=== PATIENT | female | born 1960 | race Caucasian/White ===

== ENCOUNTER 2018-10-18 10:41 | Outpatient (CLI) | payer BC, SELFPAY ==
[2018-10-18 11:20] LABS: Abs Immature Grans 0.01 k/cumm (0.0-0.09); Absolute Basophil Count 0.02 k/cumm (0.0-0.2); Absolute Eosinophil Count 0.14 k/cumm (0.0-0.7); Absolute Lymphocyte Count 2.31 k/cumm (1.2-3.4); Absolute Monocyte Count 0.37 k/cumm (0.11-0.7); Absolute Neutrophil Count 2.85 k/cumm (1.2-6.7); Basophils % 0.4; Eosinophils % 2.5; HCT 38.9 % (36.0-46.0); HGB 12.8 g/dL (12.0-15.5); Immature Grans % 0.2; Lymphocytes % 40.5; Mean Corp. HGB Concentration 32.9 g/dL (32.0-36.0); Mean Corpuscular Hemoglobin 27.9 pg (27.0-33.0); Mean Corpuscular Volume 84.7 fL (80-95); Mean Platelet Volume 8.9 fL (8.0-11.0); Monocytes % 6.5; Neutrophils % 49.9; Platelet Count 251 x1000/uL (130-400); RBC 4.59 m/cumm (4.00-5.20); RBC Distribution Width 13.6 % (11.7-14.6)
[2018-10-18 11:31] LABS: ALT 46 U/L (12-78); AST 27 U/L (15-37); Albumin 3.2 g/dL (3.4-5.0); Alkaline Phosphatase 114 U/L (46-116); Anion Gap 9.4 mmol/L (3-11); BUN 11 mg/dL (7-18); Bilirubin, Total 0.3 mg/dL (0.2-1.0); CO2 24.6 mmol/L (21.0-32.0); CREATININE 0.94 mg/dL (0.55-1.02); Calcium 8.9 mg/dL (8.5-10.1); Chloride 105 mmol/L (98-107); Glucose 221 mg/dL (70-100); Potassium 4.1 mmol/L (3.5-5.1); Sodium 139 mmol/L (136-145); Total Protein 6.7 g/dL (6.4-8.2)
[2018-10-18 11:35] LABS: Hemoglobin A1C 7.7 % (4.5-6.2)
== END 2018-10-18 11:01 ==
PROVIDERS: PCP Family Medicine; Visit Provider Internal Medicine Medical Oncology
DX: R63.5 Abnormal weight gain (principal); C50.412 Malignant neoplasm of upper-outer quadrant of left female breast; Z17.0 Estrogen receptor positive status [ER+]
CPT/HCPCS: 36415; 80053; 83036; 85025

== ENCOUNTER 2018-11-15 00:58 | Outpatient (CLI) | payer BC, SELFPAY ==
--- NOTE | 2018-11-15 13:50 | DI.MAMMO_ITS ---
SYMPTOM/DIAGNOSIS: LT BREAST CA STAGE II, H/O BREAST CA S/P SURGERY, RADIATION ? STATUS MAMMOGRAM: Mammograms were interpreted according to the usual protocol including computer analysis with CAD system, tomosynthesis and C view imaging. Comparison with prior examinations. Breast density B. No suspicious masses or microcalcifications are seen. The patient is status post left lumpectomy. IMPRESSION: No evidence for malignancy. Yearly mammography is recommended. Category 2-B. MQSA ASSESSMENT OF FINDINGS: Negative with benign findings. Category 2. Patient will receive a letter notifying them of these results. BI-RADS category B. There are scattered areas of fibroglandular density.
== END 2018-11-15 01:18 ==
PROVIDERS: PCP Family Medicine; Visit Provider Nurse Practitioner Family
DX: Z12.31 Encounter for screening mammogram for malignant neoplasm of breast (principal); Z85.3 Personal history of malignant neoplasm of breast; Z92.3 Personal history of irradiation
CPT/HCPCS: 77062; 77066; G0279

== ENCOUNTER 2018-12-21 11:46 | Outpatient (REF) | payer BC, SELFPAY ==
[2018-12-21 18:56] LABS: Abs Immature Grans 0.01 k/cumm (0.0-0.09); Absolute Basophil Count 0.01 k/cumm (0.0-0.2); Absolute Eosinophil Count 0.13 k/cumm (0.0-0.7); Absolute Lymphocyte Count 1.94 k/cumm (1.2-3.4); Absolute Monocyte Count 0.43 k/cumm (0.11-0.7); Absolute Neutrophil Count 3.61 k/cumm (1.2-6.7); Basophils % 0.2; Eosinophils % 2.1; HCT 39.2 % (36.0-46.0); HGB 13.1 g/dL (12.0-15.5); Immature Grans % 0.2; Lymphocytes % 31.6; Mean Corp. HGB Concentration 33.4 g/dL (32.0-36.0); Mean Corpuscular Hemoglobin 28.3 pg (27.0-33.0); Mean Corpuscular Volume 84.7 fL (80-95); Mean Platelet Volume 9.9 fL (8.0-11.0); Neutrophils % 58.9; Platelet Count 254 x1000/uL (130-400); RBC 4.63 m/cumm (4.00-5.20); RBC Distribution Width 13.9 % (11.7-14.6); White Blood Cell Count 6.13 k/cumm (4.4-10.8)
[2018-12-21 19:12] LABS: TSH (W/Ref FT4) 1.98 uIU/mL (0.358-3.74)
== END 2018-12-21 12:06 ==
LOC: LBN 11:46
PROVIDERS: PCP Family Medicine; Visit Provider Family Medicine
DX: R53.83 Other fatigue (principal); R63.5 Abnormal weight gain
CPT/HCPCS: 84443; 85025

== ENCOUNTER 2019-05-14 00:34 | Outpatient (CLI) | payer BC, SELFPAY ==
[2019-05-14 11:57] LABS: Calculated LDL 73 mg/dL; Cholesterol 144 mg/dL (50-200); HDL Cholesterol 55 mg/dL (40-60); Triglyceride 82 mg/dL (30-150)
== END 2019-05-14 00:54 ==
PROVIDERS: PCP Family Medicine; Visit Provider Family Medicine
DX: E78.5 Hyperlipidemia, unspecified (principal)
CPT/HCPCS: 36415; 80061; 83721

== ENCOUNTER 2019-05-16 01:36 | Outpatient (CLI) | payer BC, SELFPAY ==
[2019-05-16] MEDS: Inhaler, Assist Device 1 EACH MC (15:13)
[2019-05-16] MEDS: Albuterol HFA 18 GM 200 PUFF INH IH (15:14)
--- NOTE | 2019-05-18 11:40 | PFT_ITS ---
Date: May 16, 2019 Requesting Provider: Dr. Andrea Cho Spirometry: No evidence of obstructive airways disease. No bronchodilator response. Lung Volume: No evidence of restriction. Diffusion capacity: Borderline mildly reduced, which is normal when corrected to alveolar volume. Airways resistance: Normal. IMPRESSION: Overall normal pulmonary function study. Clinical correlation recommended.
== END 2019-05-16 01:56 ==
PROVIDERS: PCP Family Medicine; Visit Provider Family Medicine
DX: R06.09 Other forms of dyspnea (principal); Z87.891 Personal history of nicotine dependence
CPT/HCPCS: 94060; 94150; 94726; 94729

== ENCOUNTER 2019-08-11 07:02 | Outpatient (CLI) | payer BC, SELFPAY ==
--- NOTE | 2019-08-11 08:15 | DI.RAD_ITS ---
EXAM: XR TIB/FIB LT CLINICAL HISTORY: Evaluate for stress fracture, lower tibia, leg pain, M79.606 TECHNIQUE: COMPARISON: No exams were available for comparison FINDINGS: Three views were obtained. No bony abnormality seen. If there is a high clinical suspicion of a str ess fracture or other bony pathology, additional evaluation with bone scan or MRI may be considered. IMPRESSION:
[2019-08-11 09:45] LABS: Iron 47 ug/dL (50-175); Total Iron Binding Capacity 381 ug/dL (250-450); Transferrin Sat 12 % (15-50)
[2019-08-11 09:46] LABS: ALT 39 U/L (14-59); AST 17 U/L (15-37); Albumin 3.7 g/dL (3.4-5.0); Alkaline Phosphatase 151 U/L (46-116); BUN 16 mg/dL (7-18); Bilirubin, Total 0.3 mg/dL (0.2-1.0); CREATININE 0.76 mg/dL (0.55-1.02); Chloride 106 mmol/L (98-107); Glucose 118 mg/dL (70-100); Potassium 3.9 mmol/L (3.5-5.1); Sodium 144 mmol/L (136-145)
== END 2019-08-11 07:22 ==
PROVIDERS: PCP Family Medicine; Visit Provider Family Medicine
DX: M79.662 Pain in left lower leg (principal)
CPT/HCPCS: 36415; 80053; 73590; 83540; 83550

== ENCOUNTER 2019-08-24 00:38 | Outpatient (CLI) | payer BC, SELFPAY ==
--- NOTE | 2019-08-24 09:48 | DI.NM_ITS ---
EXAM: NM BONE SCAN 3 PHASE CLINICAL HISTORY: L tibial pain x 3 months suggestive of stress fracture M79.669, bilateral hip pain . COMPARISON: LEFT TIB/FIB from 03/16/2018 XR TIB/FIB LT from 08/11/2019 EXAMINATION: 24.0 millicuries of technetium 99m MDP were administered IV. FINDINGS: Delayed images show no increased activity in the tibia or fibula. Increased activity is seen in the tarsal regions bilaterally. There is a small focus of increased activity in the left greater trochan ter, which could be secondary to trochanteric bursitis. The remainder of the skeletal labeling is un remarkable. IMPRESSION: No abnormal activity in the left tibia. Small focus of increased activity in the left greater trocha nter could be secondary to trochanteric bursitis. There are no plain films available for comparison. Increased activity in both feet could be secondary to degenerative or posttraumatic changes.
== END 2019-08-24 00:58 ==
PROVIDERS: PCP Family Medicine; Visit Provider Family Medicine
DX: M79.662 Pain in left lower leg (principal); M25.551 Pain in right hip; M25.552 Pain in left hip
CPT/HCPCS: 78315

== ENCOUNTER 2019-10-31 08:58 | Outpatient (REF) | payer BC, SELFPAY ==
--- NOTE | 2019-10-31 08:45 | PAPFT_PTH ---
PATIENT: Stefany Edward LOC: [facility] U#:[id number] AGE/SX: 59/F ROOM: RE10/31/[address]: Doreen De La Vega NP : 1960 BED: DIS: 10/31/2019 SPEC #: [id number] RECD: 10/31/19 12:48 STATUS: FARHANA DUMONT #: [id number] DUDLEY: 10/31/19 08:[address]: Doreen De La Vega NP DEPT: [facility] Cytology RECD BY: Mickie Murray ENTERED: 10/31/19 12:48 SP TYPE: PAPFT OTHR DR: Andrea Cho, DO Tissues: 1 - CX/ENDOCX FOR PAP SMEARS Procedures: PAP THIN PREP/UVM Screening HPV DNA PROBE Comments: [id number]
== END 2019-10-31 09:18 ==
LOC: LBN 08:58
PROVIDERS: PCP Family Medicine; Visit Provider Nurse Practitioner Women's Health
DX: Z12.4 Encounter for screening for malignant neoplasm of cervix (principal); Z11.51 Encounter for screening for human papillomavirus (HPV)
CPT/HCPCS: 88142; 87624

== ENCOUNTER 2019-11-14 01:23 | Outpatient (CLI) | payer BC, SELFPAY ==
--- NOTE | 2019-11-14 13:14 | DI.US_ITS ---
EXAM: US PELVIS TRANSVAGINAL CLINICAL HISTORY: HX BREAST CA, R SIDED PELVIC PAIN, R10.2, Z85.3 TECHNIQUE: Ultrasound performed using standard protocol. Transabdominal and transvaginal exams wer e performed. COMPARISON: No exams were available for comparison FINDINGS: The uterus measures 6.0 x 3.7 x 4.6 cm. There are multiple small fibroids. The myometrium overall i s heterogeneous. Uterus is retroverted. The endometrial stripe measures 3 millimeters in thickness. Ovaries are normal in size and appearance. No cyst or mass is seen. There is no free fluid or hyd ronephrosis. The bladder is unremarkable. IMPRESSION: Multiple small uterine fibroids.
== END 2019-11-14 01:43 ==
PROVIDERS: PCP Family Medicine; Visit Provider Nurse Practitioner Women's Health
DX: R10.2 Pelvic and perineal pain (principal); D25.9 Leiomyoma of uterus, unspecified; Z85.3 Personal history of malignant neoplasm of breast; N85.4 Malposition of uterus
CPT/HCPCS: 76830; 76856

== ENCOUNTER 2019-12-05 01:38 | Outpatient (CLI) | payer BC, SELFPAY ==
--- NOTE | 2019-12-05 13:30 | DI.MAMMO_ITS ---
EXAM: MG MAMMO SCREENING 60 MIN DUR CLINICAL HISTORY: Personal h/o breast adenocarcinoma, Z85.3, breast cancer screening TECHNIQUE: Mammograms were interpreted according to the usual protocol including computer analysis w [employer] CAD system, tomosynthesis and C-view imaging. COMPARISON: 2009 through 2018 FINDINGS: The breasts are composed of heterogeneously dense fibroglandular densities, Breast Density category C . Scarring is again noted in the superior left breast. Surgical clips are also seen. No suspicious masses or suspicious microcalcifications are seen. No skin thickening or abnormal axillary lymph nodes are seen. There has been no significant change from prior exams. IMPRESSION: BIRADS Category 2, negative mammogram with benign findings. Yearly screening mammography is recommen ded. BREAST DENSITY: The mammogram demonstrates the patient's breast tissue is dense. Dense breast tissue is very common and is not abnormal but dense breast tissue can make it harder to find cancer on a ma mmogram. Also, dense breast tissue may increase breast cancer risk. This information about the result of the mammogram report was provided to the patient to raise their awareness. Use this report when y ou speak with the patient about their risks for breast cancer, which includes their family history. A t that time, you may recommend additional screening tests (Ultrasound or MRI) as they might be useful based on their risk. A negative radiographic report should not delay biopsy if a dominant or clinically suspicious mass is present. Up to ten percent of cancers are not identified on mammography. A negative report may reinforce clinical impression. Adenosis and dense breasts may obscure an underlying neoplasm. False positive reports average 6 to 10%.
== END 2019-12-05 01:58 ==
PROVIDERS: PCP Family Medicine; Visit Provider Nurse Practitioner Women's Health
DX: Z12.31 Encounter for screening mammogram for malignant neoplasm of breast (principal); Z85.3 Personal history of malignant neoplasm of breast; Z98.890 Other specified postprocedural states
CPT/HCPCS: 77063; 77067

== ENCOUNTER 2020-05-01 02:13 | Outpatient (CLI) | payer BC, SELFPAY ==
[2020-05-01 09:55] LABS: Abs Immature Grans 0.01 k/cumm (0.0-0.09); Absolute Basophil Count 0.01 k/cumm (0.0-0.2); Absolute Eosinophil Count 0.09 k/cumm (0.0-0.7); Absolute Lymphocyte Count 2.43 k/cumm (1.2-3.4); Absolute Monocyte Count 0.37 k/cumm (0.11-0.7); Absolute Neutrophil Count 4.26 k/cumm (1.2-6.7); Basophils % 0.1; Eosinophils % 1.3; HCT 39.7 % (36.0-46.0); HGB 13.1 g/dL (12.0-15.5); Immature Grans % 0.1 %; Lymphocytes % 33.9; Mean Corpuscular Hemoglobin 28.1 pg (27.0-33.0); Mean Corpuscular Volume 85.2 fL (80-95); Monocytes % 5.2; Neutrophils % 59.4; Platelet Count 303 x1000/uL (130-400); RBC 4.66 m/cumm (4.00-5.20); RBC Distribution Width 13.5 % (11.7-14.6); White Blood Cell Count 7.17 k/cumm (4.4-10.8)
[2020-05-01 10:54] LABS: ALT 34 U/L (14-59); AST 20 U/L (15-37); Albumin 3.6 g/dL (3.4-5.0); Alkaline Phosphatase 93 U/L (46-116); Anion Gap 10.7 mmol/L (3-11); BUN 12 mg/dL (7-18); Bilirubin, Total 0.3 mg/dL (0.2-1.0); CO2 26.3 mmol/L (21.0-32.0); CREATININE 0.87 mg/dL (0.55-1.02); Calcium 8.8 mg/dL (8.5-10.1); Chloride 103 mmol/L (98-107); Glucose 172 mg/dL (74-106); Potassium 3.9 mmol/L (3.5-5.1); Sodium 140 mmol/L (136-145); TSH (W/Ref FT4) 1.36 uIU/mL (0.36-3.74); Total Protein 6.9 g/dL (6.4-8.2)
== END 2020-05-01 02:33 ==
PROVIDERS: PCP Family Medicine; Visit Provider Family Medicine
DX: R63.5 Abnormal weight gain (principal)
CPT/HCPCS: 36415; 80053; 84443; 85025

== ENCOUNTER 2021-01-25 03:49 | Outpatient (CLI) | payer BC, SELFPAY ==
--- NOTE | 2021-01-25 13:35 | DI.MAMMO_ITS ---
EXAM: MG MAMMO SCREENING 60 MIN DUR CLINICAL HISTORY: breast cancer screening,PERSONAL H/O BREAST CA TECHNIQUE: Mammograms were interpreted according to the usual protocol including computer analysis w [employer] CAD system, tomosynthesis and C-view imaging. COMPARISON: 2010 through 2019 FINDINGS: The breasts are composed of heterogeneously dense fibroglandular densities, Breast Density category C . Scarring is again noted in the superior left breast. Surgical clips are seen in the left axilla. No suspicious masses or suspicious microcalcifications are seen in either breast.. No skin thickening or abnormal axillary lymph nodes are seen. There has been no significant change from prior exams. IMPRESSION: BI-RADS Cat 2 - Benign Findings Yearly screening mammography is recommended. Breast Density Category C, heterogeneously Dense. The mammogram demonstrates the patient's breast tissue is dense. Dense breast tissue is very common a nd is not abnormal but dense breast tissue can make it harder to find cancer on a mammogram. Also, de nse breast tissue may increase breast cancer risk. This information about the result of the mammogram report was provided to the patient to raise their awareness. Use this report when you speak with the patient about their risks for breast cancer, which includes their family history. At that time, you may recommend additional screening tests (Ultrasound or MRI) as they might be useful based on their r isk. A negative radiographic report should not delay biopsy if a dominant or clinically suspicious mass is present. Up to ten percent of cancers are not identified on mammography. A negative report may reinforce clinical impression. Adenosis and dense breasts may obscure an underlying neoplasm. False positive reports average 6 to 10%.
== END 2021-01-25 04:09 ==
PROVIDERS: PCP Family Medicine; Visit Provider Nurse Practitioner Family
DX: Z12.31 Encounter for screening mammogram for malignant neoplasm of breast (principal); Z85.3 Personal history of malignant neoplasm of breast
CPT/HCPCS: 77063; 77067

== ENCOUNTER 2021-03-29 06:33 | Day surgery (SDC) | payer BC, SELFPAY ==
[2021-03-29 06:50] VITALS: BP 105/58; PULSE 81; RESP 16; TEMP 36.3; O2SAT 96
--- NOTE | 2021-03-29 07:10 | W.ANESPRE ---
General Info Date of Service Date Performed: 03/29/21 Height: 5 ft 4 in Weight: 80.7 kg Body Mass Index (BMI): 30.5 Surgical Procedure: Operation Date: 03/29/21 07:35 Proposed Procedures Side Surgeon maggy Arroyo, DO Meds Allergies and Home Medications Allergies Allergy/AdvReac Type Severity Reaction Status Date / Time black pepper Allergy Severe Dermatitis Verified 03/28/21 10:45 almond Allergy Intermediate Dermatitis Verified 03/28/21 10:45 blueberry Allergy Intermediate Dermatitis Verified 03/28/21 10:45 clams Allergy Intermediate Dermatitis Verified 03/28/21 10:45 mushroom Allergy Intermediate Dermatitis Verified 03/28/21 10:45 sesame oil Allergy Mild Dermatitis Verified 03/28/21 10:45 aspirin AdvReac Severe stomach Verified 03/28/21 10:45 upset hydrocodone [From Vicodin] AdvReac Intermediate Nausea Verified 03/28/21 10:45 metformin AdvReac Intermediate Diarrhea Verified 03/28/21 10:45 latex AdvReac Mild makes me Verified 03/28/21 10:45 itch lobster Allergy Intermediate Dermatitis, Uncoded 03/28/21 10:45 severe itching olive Allergy Intermediate Dermatitis Uncoded 03/28/21 10:45 malt extract AdvReac Mild headache Uncoded 03/28/21 10:45 Home Medication Medication Instructions Recorded vitamin B complex 1 ea PO DAILY 11/19/15 acetaminophen [Tylenol] 650 mg PO Q4H PRN PRN #30 tab 10/27/17 blood sugar diagnostic #100 each 11/15/18 lancets #100 each 11/15/18 cholecalciferol (vitamin D3) 25 2,000 unit PO DAILY cap 11/23/18 mcg (1,000 unit) capsule rizatriptan 10 mg tablet 10 mg PO PRN #10 tab 04/29/19 ferrous sulfate 325 mg (65 mg 325 mg PO DAILY #90 tab 03/30/20 iron) tablet oxybutynin chloride 5 mg tablet 10 mg PO BID tab 05/24/20 pen needle, diabetic 32 gauge x #100 each 07/13/20 1/4 atorvastatin 40 mg tablet 40 mg PO DAILY #90 tab-cap 09/07/20 lisinopril 10 1 tab PO DAILY #90 tab 09/07/20 mg-hydrochlorothiazide 12.5 mg tablet insulin glargine 100 unit/mL (3 5 unit SC DAILY #15 ml 11/02/20 mL) subcutaneous pen venlafaxine 150 mg 300 mg PO DAILY #180 cap 11/12/20 capsule,extended release 24 hr dexmethylphenidate 20 mg 20 mg PO DAILY #28 cap MDD 20 mg 02/01/21 capsule,extended release [id number] methylphenidate HCl 5 mg tablet 5 mg PO DAILY #28 tab MDD 5 mg 02/01/21 liraglutide 0.6 mg/0.1 mL (18 mg/3 See Rx Instructions SC .COMPLEX #6 02/25/21 mL) subcutaneous pen injector ml calcium carbonate 600 mg calcium 600 mg PO BID 03/15/21 (1,500 mg) tablet anastrozole 1 mg tablet 1 mg PO DAILY 03/28/21 Current Visit Medications: Current Medications Generic Name Dose Route Start Last Admin Trade Name Freq PRN Reason Stop Dose Admin Hyoscyamine Sulfate 0.125 mg 03/28/21 14:21 Hyoscyamine 0.125 Mg Sl/Oral/Chew SL DIRECTED PRN Ringer's Solution 1,000 mls @ 80 mls/hr 03/29/21 06:00 IV 04/27/21 23:59 INFUSION [facility] IV Miscellaneous Supplies 1 each 03/29/21 06:00 Iv Access IV 04/27/21 23:59 DIRECTED THEO Ondansetron HCl 4 mg 03/28/21 14:21 Ondansetron 4 Mg/2 Ml Vial IVP Q4H PRN PRN Nausea / Vomiting Sodium Chloride 0 ml 03/29/21 06:00 Normal Saline Flush 10 Ml Syr IV 04/27/21 23:59 PRN PRN Sodium Chloride 0 ml 03/29/21 06:00 Normal Saline 10 Ml Vial IJ 04/27/21 23:59 DIRECTED PRN Sterile Water 0 ml 03/29/21 06:00 Water,Injection,Sterile 10 Ml Vial IJ 04/27/21 23:59 DIRECTED PRN PFSH Active Problems Active Problems: Problem Status Onset Code Malignant neoplasm of upper-outer quadrant of left female breast C50.412 Dietary iron deficiency E61.1 Arthritis of knee M17.10 Type 2 diabetes mellitus E11.9 Anxiety 11/19/15 F41.9 Migraines 09/01/17 G43.909 Lobular carcinoma of left breast 10/27/16 C50.912 Hyperlipidemia 09/01/17 E78.5 Hx of adenocarcinoma of breast 09/09/17 Z85.3 Essential hypertension 09/01/17 I10 Attention deficit disorder 09/01/17 F98.8 Anxiety and depression 09/01/17 F41.9, F32.9 Medical History Medical History ADHD (attention deficit hyperactivity disorder) Anxiety Anxiety (11/19/15) menopausal symptom; described as wanting to shove things underneath her fingernails. Anxiety and depression (09/01/17) Arthritis of knee Attention deficit disorder (09/01/17) Breast cancer greater than or equal to 2 cm in greatest dimension Dietary iron deficiency Vegetarian diet Essential hypertension (09/01/17) Hx of adenocarcinoma of breast (09/09/17) left, Lumpectom 10/08/16 Dr. Armstrong ER/PA positive HER-2/claudette neg. Negative sentinel node Lumpectomy revision, continue tamoxifen until 01/2022 [facility] [place] Hyperlipidemia (09/01/17) Hypertension Lobular carcinoma of left breast (10/27/16) left, Lumpectom 10/08/16 Dr. Armstrong ER/PA positive HER-2/claudette neg. Negative sentinel node Migraines (09/01/17) Mitral valve prolapse PCOS (polycystic ovarian syndrome) Patient report this is not her problem but her daughter. Type 2 diabetes mellitus Surgical History Surgical History (Updated 03/29/21 @ 06:42 by Fernie Roberts) Biopsy of breast (10/08/16) Right breast- benign calcification Breast 08/2016 Left Breast- lobular cancer Breast, Lumpectomy (10/08/16) left breast Re-excision of positive margin 11/10/16: 11/10/16 reexcision of lateral margin Cholecystectomy (10/27/17) History of appendectomy Tobacco Smoking/Tobacco Use Status: Former Tobacco Use Alcohol Alcohol Intake: current Alcohol intake frequency: holidays/special occasions only Alcohol type: hard liquor Substance Use Substance use: Never Substance use type: does not use Prental History History 2 Para 2 Hx # Term Pregnancies Multiple births Hx # Pregnancies Ectopic pregnancies AB induced Hx Number of Living Children AB spontaneous Vital Signs and Lab Results Vital Signs Most Recent Vital Signs in EMR: Most Recent Vital Signs Temp Pulse Resp BP Pulse Ox 36.3 C L 81 16 105/58 L 96 03/29/21 06:50 03/29/21 06:50 03/29/21 06:50 03/29/21 06:50 03/29/21 06:50 Point of Care Results Point of Care Results: Finger Stick Blood Glucose 101 03/29/21 07:09 Lab Results Blood Type / Crossmatch: No Data to Display Complete Blood Count: No Data to Display Complete Metabolic Panel: No Data to Display Liver Function Panel: No Data to Display Coagulation Panel: No Data to Display Cardiac Panel: No Data to Display Arterial Blood Gas: No Data to Display Venous Blood Gas: No Data to Display Pancreas Panel: No Data to Display Thyroid Panel: No Data to Display Infectious Disease: No Data to Display Blood Cultures: No Data to Display Toxicology Panel: No Data to Display Imaging and Studies Imaging and Studies Echocardiogram Summary: Date of Exam: 05/04/17 *STUDY CONCLUSIONS* Summary: 1. Left ventricle: The cavity size was normal. Systolic function was hyperdynamic. The estimated ejection fraction was 65-70%. There was an increased relative contribution of atrial contraction to ventricular filling. The tissue Doppler parameters were abnormal. There was no evidence of elevated ventricular filling pressure by Doppler parameters. 2. Mitral valve: No echocardiographic evidence for prolapse. There was mild regurgitation. 3. Right ventricle: The cavity size was normal. Wall thickness was normal. Systolic function was normal. 4. Atrial septum: No defect or patent foramen ovale was identified. 5. Pulmonary arteries: Pulmonary systolic pressure was in the range of 30mm Hg to 40mm Hg. 6. Inferior vena cava: The vessel was patent and normal in size. The respirophasic diameter changes were in the normal range (greater than or equal to 50%), consistent with normal central venous pressure. Pulmonary Function Summary: Date: May 16, 2019 Requesting Provider: Dr. Andrea Cho Spirometry: No evidence of obstructive airways disease. No bronchodilator response. Lung Volume: No evidence of restriction. Diffusion capacity: Borderline mildly reduced, which is normal when corrected to alveolar volume. Airways resistance: Normal. IMPRESSION: Overall normal pulmonary function study. Anesthesia Assessment and Plan Anesthesia History Personal History: PONV Family History: No Family History of Anesthesia Complications Exercise Tolerance Exercise Tolerance: Metabolic Equivalents>4 Pertinent Negatives Pertinent Negatives: No Symptoms of GERD Cardiac & Pulmonary Exam Cardiac Exam: Normal S1/S2 Heart Sounds Pulmonary Exam: Clear Bilateral Breath Sounds Airway Exam Known Difficult Airway: No Mallampati Class: 2 Mouth Opening: Normal (> 3cm) Thyromental Distance: Greater than 3 cm Neck Range of Motion: Full ROM Neck Circumference: Normal Teeth Condition: Normal Dentition ASA Classification ASA Score: ASA 2 Emergency Case?: No NPO Status NPO Status: NPO Clears >2 hours, Solids >8 hours Anesthesia Plan Resuscitation Status: Full Code Anesthesia Technique: General Anesthesia Airway Planned: Natural Airway Monitors Used: Standard Monitors
[2021-03-29] MEDS: Lactated Ringers 1,000 ML 80 ML IV (07:13)
[2021-03-29 07:17] VITALS: BMI 30.5
[2021-03-29 08:24] VITALS: BP 89/48; PULSE 64; RESP 15; TEMP 36.6; O2SAT 96
--- NOTE | 2021-03-29 08:28 | W.COLOREPORT ---
Date of service: 03/29/21 Time of Service: 08:28 Colonoscopy Report Date of procedure: 03/29/21 Pre-op diagnosis general: screen Post-op diagnosis procedure note: same Surgeon: Brittany Arroyo Anesthesia Type: General:No Airway Estimated blood loss (mL): 0 Pathology: none sent Complications: None Disposition: same day Prep: Miralax/Dulcolax Retraction Time: 8 mins Procedure Description: After informed consent was obtained the patient was taken to the procedure room and placed in a left decubitous position. Monitors were applied and a time out was done. The patients name, date of , procedure, allergies to medications and metal in their body was reviewed. The patient was then sedated. Once sedated and comfortable a rectal exam was done. External exam shows non-inflammed external hemorrhoids. Internal exam revealed a normal sphincter tone and no palpable masses. The scope was then introduced and retrofelexed. No without internal hemorrhoids were identified. The scope was then advanced to the cecum good difficulty. The TI and appendiceal orifice were identified. The prep was . The scope was then slowly retracted over 8 minutes back into the rectum. there are no polyps, AVMs, or diverticula visualized today. The mucosa is pink and healthy. The scope was removed and the patient was woken up and taken back to Same day surgery in stable condition. The patient tolerated the procedure well and there were no immediate complications. Follow up: The patient should follow up in 10 years unless they develop changes in bowel habits or other new gastrointestinal complaints.
--- NOTE | 2021-03-29 08:31 | PDOC.DSDIS_ITS ---
Discharge Plan Disposition Patient Disposition: HOME Condition: Good Discharge Details Reason For Visit: colo Attending Provider: Brittany Arroyo Primary Care Provider: Andrea Cho Home Meds and New Rx's Prescriptions: No Action cholecalciferol (vitamin D3) 1,000 unit capsule 2,000 unit PO DAILY RF: 0 rizatriptan [Maxalt] 10 mg tablet 10 mg PO PRN Qty: 10 RF: 3 ferrous sulfate 325 mg (65 mg iron) tablet 325 mg PO DAILY Qty: 90 RF: 3 atorvastatin 40 mg tablet 40 mg PO DAILY Qty: 90 RF: 3 lisinopril-hydrochlorothiazide 10-12.5 mg tablet 1 tab PO DAILY Qty: 90 RF: 3 (DME) Blood Glucose Test strip See Dose Instructions .ROUTE .MEDSUPPLY Qty: 100 RF: 3 (DME) lancets misc See Dose Instructions .ROUTE .MEDSUPPLY Qty: 100 RF: 3 (DME) pen needle, diabetic [Comfort EZ Pen [place]] 32 gauge x 1/4 needle See Rx Instructions .ROUTE .MEDSUPPLY Qty: 100 RF: 3 Lantus Solostar U-100 Insulin 100 unit/mL (3 mL) insulin pen 5 unit SC DAILY Qty: 15 RF: 3 dexmethylphenidate [Focalin XR] 20 mg capsule,ER biphasic 50-50 20 mg PO DAILY MDD 20 mg Qty: 28 RF: 0 methylphenidate HCl [Ritalin] 5 mg tablet 5 mg PO DAILY MDD 5 mg Qty: 28 RF: 0 calcium carbonate [Calcium 600] 600 mg calcium (1,500 mg) tablet 600 mg PO BID RF: 0 vitamin B complex 1 EACH tablet 1 ea PO DAILY RF: 0 oxybutynin chloride 5 mg tablet 10 mg PO BID RF: 0 venlafaxine [Effexor XR] 150 mg capsule,extended release 24hr 300 mg PO DAILY Qty: 180 RF: 3 Victoza 2-Juan Alberto 0.6 mg/0.1 mL (18 mg/3 mL) pen injector See Rx Instructions SC .COMPLEX Qty: 6 RF: 6 anastrozole [Arimidex] 1 mg tablet 1 mg PO DAILY RF: 0 acetaminophen [Tylenol] 325 MG tablet 650 mg PO Q4H PRN PRNQty: 30 RF: 0 Discharge Instructions Additional Instructions: DSU Colonoscopy Post- Op Instructions Instructions for Everyone who is given Anesthesia: For your safety, please do the following for the next twenty-four (24) hours: *Do Not operate a motor vehicle (car, truck, motorcycle, etc.) *Do Not drink alcoholic beverages or use any recreational drugs for the first 24 hours or while taking pain medications. The medications in your body may have a reaction that can be dangerous. *Do Not make any important decisions or sign any important papers. Findings:Normal Follow up:repeat in 10 yrs time 1. No lifting over 20 pounds or strenuous activity for the first 24 hours after your procedure. After 24 hours there are no restrictions on your activity but you may feel fatigued for a few days. 2. After you arrive home you may have a light meal and return to your normal diet as you can tolerate it without feeling sick to your stomach. 3. You may have a bloated, gaseous feeling in your belly (abdomen) after a colonoscopy. Passing gas and belching will help. Walking or lying down on your left side with your knees flexed may relieve the discomfort. Call the office at [phone] (Office) or [phone] (Hospital) right away if you notice any of the following: a.Vomiting of blood or ?coffee ground stools?. b.Rectal bleeding 1Tbsp, blood clots or continuous bleeding. c.Severe belly (abdominal) pain. d.A hard distended belly (abdomen) and an inability to pass gas. 4. Please don?t expect to have a normal BM (bowel movement) for 2-3 days after your procedure. 5. If there are questions regarding the findings of your procedure, please contact your doctor 6. If you are unable to contact your doctor with a problem, contact the hospital at [phone]. 7. Continue all your regular medications unless directed otherwise. I understand the above instructions and have no questions. Signature of Patient or Adult Escort Name of Responsible Adult Escort Signature of Nurse Date/Time Activity:: see above Diet:: see above Discharge Orders Discharge Orders: Discharge Order (Routine); Ordered 03/28/21 Ordered By: Brittany Arroyo DS: Diagnosis Discharge Diagnosis (1) External hemorrhoids without complication: Status: Acute
--- NOTE | 2021-03-29 08:35 | W.ANESPOSTOP ---
Postoperative Evaluation Date, Time and Location Date Performed: 03/29/21 Time Performed: 08:35 Patient Location: Day Surgery Unit Vital Signs Most Recent Imported Vital Signs: Most Recent Vital Signs Temp Pulse Resp BP Pulse Ox 36.6 C 64 15 89/48 L 96 03/29/21 08:24 03/29/21 08:24 03/29/21 08:24 03/29/21 08:24 03/29/21 08:24 Pain Score Most Recent Pain Score: Most Recent Pain Score Pain Level 0 03/29/21 08:24 Assessment Mental Status: Arousable with meaningful communication Airway and Respiratory Function: Patent airway with normal (patient baseline) respiratory exam Cardiovascular Function: Hemodynamically Stable Hydration Status: Adequately Hydrated Nausea & Vomiting: No Nausea or Vomiting Pain: Pt. Denies Any Pain Peripheral Nerve Block: Patient did not receive a nerve block
[2021-03-29 08:52] VITALS: BP 111/59; PULSE 59; RESP 18; TEMP 36.5; O2SAT 100
== END 2021-03-29 09:23 | disposition home or self-care (01) ==
PROVIDERS: PCP Family Medicine; Visit Provider Surgery
PROC: 0DJD8ZZ Inspection of Lower Intestinal Tract, Via Natural or Artificial Opening Endoscopic (ICD-10-PCS; CPT 45378; principal; 2021-03-29 07:30)
DX: Z12.11 Encounter for screening for malignant neoplasm of colon (principal); Z80.0 Family history of malignant neoplasm of digestive organs; I10 Essential (primary) hypertension; E11.9 Type 2 diabetes mellitus without complications; Z85.3 Personal history of malignant neoplasm of breast
CPT/HCPCS: 45378

== ENCOUNTER 2022-01-07 04:25 | Outpatient (CLI) | payer BC, SELFPAY ==
[2022-01-07 10:36] LABS: Anion Gap 9.4 mmol/L (3-11); BUN 15 mg/dL (7-18); CO2 28.6 mmol/L (21.0-32.0); CREATININE 0.8 mg/dL (0.55-1.02); Calcium 10.1 mg/dL (8.5-10.1); Chloride 105 mmol/L (98-107); Glucose 93 mg/dL (74-106); Potassium 4.1 mmol/L (3.5-5.1); Sodium 143 mmol/L (136-145)
== END 2022-01-07 04:26 | disposition home or self-care (01) ==
LOC: LBO 04:25
PROVIDERS: PCP Family Medicine; Visit Provider Family Medicine
DX: E11.9 Type 2 diabetes mellitus without complications (principal); I10 Essential (primary) hypertension; C50.412 Malignant neoplasm of upper-outer quadrant of left female breast
CPT/HCPCS: 36415; 80048; 84443

== ENCOUNTER → 2022-05-09 00:33 | Outpatient (CLI) | payer BC, SELFPAY ==
--- NOTE | 2022-05-09 | DI.US_ITS ---
Exam(s) US BREAST LT COMPLETE MG MAMMO SCREENING 60 MIN DUR EXAM: MG MAMMO SCREENING 60 MIN DUR and U/S breast LT complete CLINICAL HISTORY: breast cancer screening,Z12.39, PERSONAL H/O BREAST CA. TECHNIQUE: Craniocaudal and mediolateral oblique Full Field Digital Mammography views with Computer Aided Diagnosis followed by Tomosynthesis and left breast ultrasound. COMPARISON: Comparison is made with prior examinations. FINDINGS: Mammography/Tomosynthesis: Masses/Architectural Distortion: The patient is status post left lumpectomy. No suspicious masses ar e seen. Microcalcifictions: No suspicious pleomorphic-type are seen. There is a new collection of coarse calc ifications adjacent to the surgical clips on the MLO view. There were not present on the prior exami nation. Skin Thickening/Nipple Retraction: None. Complete left breast US: Echotexture: Normal appearance of the glandular tissue. Shadowing: No suspicious foci. Cyst: None. Solid lesions: None seen. Ductal dilation: None. IMPRESSION: 1. No evidence evidence of malignancy is noted. 2. A 3 month follow-up left mammogram is recommended for re-evaluation of the calcifications. 3. The findings were discussed with the patient on the date of the examination. BI-RADS Category 3 - Probably Benign Finding: Recommend follow-up imaging in 3 months Breast Density - Category C - Heterogeneously dense Breast density Category C or D implies that the patient has dense breast tissue. Dense breast tissue can make it harder to find cancer on a mammogram. Dense breast tissue is also associated with an incr eased risk of breast cancer. This information about the result of the mammogram report was provided to the patient to raise their awareness. Use this report when you speak with the patient about their risks for breast cancer, which includes their family history. At that time, you may recommend additional screening tests (Ultrasoun d or MRI) as these tests may add significant information. A negative radiographic report should not delay biopsy if a dominant or clinically suspicious mass is present. Up to ten percent of cancers are not identified on mammography. A negative report may reinforce clinical impression. Adenosis and dense breasts may obscure an underlying neoplasm. False positive reports average 6 to 10%. Patient will receive a letter notifying them of these results.
--- OUTSIDE RECORDS SUMMARY | 2022-05-09 00:59 | XMS_ITS | Encounter Summary ---
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 Malignant neoplasm of upper-outer quadra nt of left breast in female, estrogen receptor positive [address] [place] [address] [place] [address] [place] [address] [place], [place] [phone] (Wo rk) Social History Tobacco Use Types Packs/Day Years Used Date Former Smoker 1 30 Quit: 2006 Smokeless Tobacco: Never Used Alcohol Use Standard Drinks/Week Comments No 0 (1 standard drink = 0.6 oz pure alcoho l) Sex Assigned at Date Recorded Female 07/03/2021 6:34 PM EDT documented as of this encounter Last Filed Vital Signs Vital Sign Reading Time Taken Comments Blood Pressure 147/60 08/06/2017 11:05 AM EDT Pulse 108 08/06/2017 11:05 AM EDT Temperature 37 ??C (98.6 ??F) 08/06/2017 11:05 AM EDT Respiratory Rate 16 08/06/2017 11:05 AM EDT Oxygen Saturation 100% 08/06/2017 11:05 AM EDT Inhaled Oxygen Concentration - - Weight 91.2 kg (201 lb) 08/06/2017 11:05 AM EDT Height 163.3 cm (5' 4.29) 08/06/2017 11:05 AM EDT Body Mass Index 34.19 08/06/2017 11:05 AM EDT documented in this encounter Progress Notes Calli Bee, AGRICULTURAL RESEARCH TECHNICIAN - 08/06/2017 11:00 AM EDT Diagnosis: Stage IIa adenocarcinoma left breast status post lumpectomy. The tumor was 2.1 x 1.8 cm ER/RI positive HER-2/claudette negative sentinel node negative. Status post lumpectomy and lumpectomy revision The patient's Oncotype DX was quite low at 15 representing a 10% chance of recurrence on estrogen blockers. Her completed xrt is summarized as follows: 12/29/16 - 01/26/17, 42.56 Gy/16 fxs L breast using deep inspiration breath hold (DIBH) with 6 MV Xray external beam, followed by volume reduction & 10 Gy/4 fxs to lumpectomy bed using free breathing technique with 6 & 10 MV Xray external beam, boosting lumpectomy bed to 52.56 Gy/20 fxs. 3D xrt used. Started Femara on 02/05/17 SUBJECTIVE: Stefany comes in today for followup and is now on Femara which was started 5mo ago. She has noted several s/e that she associates with the Femara that are quite distressing to her such as weight gain (10lbs since February), myalgias, shooting pains in both legs bilaterally, and stomach aches. These started shortly after the Femara was started. They prevent her from exercising and being as active as she would like. In addition she has been undergoing a cardiac workup due to shortness of breath. Past Medical History: Diagnosis Date ??? ADHD (attention deficit hyperactivity disorder) ??? Arthritis ??? Cancer of left breast, stage 2 ??? Depression ??? HBP (high blood pressure) ??? Migraine ??? Ovarian cyst Past Surgical History: Procedure Laterality Date ??? MASTECTOMY, PARTIAL Left 10/2016 ??? OVARIAN CYST REMOVAL Allergies Allergen Reactions ??? [place] Dermatitis ??? Aspirin Other (See Comments) Severe abdominal pain ??? Black Pepper Dermatitis ??? Blueberry Dermatitis ??? Clams Dermatitis ??? Malt Extract Other (See Comments) headache ??? Mushroom Dermatitis ??? [place] Dermatitis ??? Other [Unclassified Drug] Dermatitis Lobster causes severe itching ??? Peanut Dermatitis ??? Pollen Extracts Other (See Comments) rhinorrhea ??? Sesame Dermatitis Medications 12/08/16 1108 Medication Sig Taking? lisinopril-hydrochlorothiazide (PRINZIDE;ZESTORETIC) 10-12.5 mg Tablet Take 1 tablet by mouth daily.Indications: hypertension Yes FLUoxetine (PROZAC) 20 mg Tablet Take 20 mg by mouth daily. Indications: Generalized Anxiety Disorder Yes lisdexamfetamine (VYVANSE) 30 mg Capsule Take 30 mg by mouth every morning. Yes rizatriptan (MAXALT) 10 mg Tablet Take 10 mg by mouth as needed for Migraine. May repeat in 2 hours if needed Yes fish oil-omega-3 fatty acids 1,000 mg Capsule Take 2 g by mouth daily. Yes cyanocobalamin 1,000 mcg Tablet Take 1,000 mcg by mouth daily. Yes cholecalciferol, Vitamin D3, (CHOLECALCIFEROL, VITAMIN D3,) 2,000 unit Capsule Take 1 capsule by mouth daily. Yes Family History Problem Relation Age of Onset ??? Lung Cancer Paternal Aunt ??? Lung Cancer Paternal Uncle ??? Cancer Father Bone. Query primary site Social History Social History ??? Marital status: Spouse name: N/A ??? Number of children: N/A ??? Years of education: N/A Occupational History ??? Not on file. Social History Main Topics ??? Smoking status: Former Smoker Packs/day: 1.00 Years: 30.00 Quit date: 2006 ??? Smokeless tobacco: Never Used ??? Alcohol use No ??? Drug use: No ??? Sexual activity: Not on file Other Topics Concern ??? 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 HENT: Negative. Eyes: Negative. Cardiovascular: Positive for dyspnea on exertion (was getting a cardiology workup). Respiratory: Negative. Skin: Negative. Musculoskeletal: Positive for myalgias. Gastrointestinal: Positive for abdominal pain (stomach pains). Genitourinary: Negative. Neurological: Positive for paresthesias (shooting pains in bottom of legs that travel upwards). Psychiatric/Behavioral: The patient is nervous/anxious. Difficulty sleeping at night - thinks it is related to hot flashes General: AAAx3, in NAD Head: Normocephalic, without obvious abnormality, atraumatic Eyes: PERRL, conjunctiva/corneas clear, EOM's intact Nose: Nares normal, septum midline Throat: Lips, mucosa, and tongue normal; teeth and gums normal Neck: Supple, symmetrical, trachea midline, no adenopathy Back: Symmetric, no curvature, ROM normal. Lungs: Clear to auscultation bilaterally, respirations unlabored Breast Normal breast exam bilat Heart: Regular rate and rhythm, S1, S2 normal, no murmur, rub or gallop Abdomen: Soft, non-tender, no masses, no organomegaly Extremities: Extremities normal, atraumatic, no cyanosis or edema Skin: Skin color, texture, turgor normal, no rashes or lesions Lymph nodes: Cervical, supraclavicular, and axillary nodes normal Neurologic: Normal; nl patellar reflexes; pilot control operator grossly intact Vitals BP 147/60 (Patient Position: Sitting) Pulse 108 Temp 37 ??C (98.6 ??F) (Oral) Resp 16 Ht 163.3 cm (5' 4.29) Wt 91.2 kg (201 lb) SpO2 100% BMI 34.19 kg/m2 Weight Wt Readings from Last 3 Encounters: 08/06/17 91.2 kg (201 lb) 04/09/17 91.2 kg (201 lb) 03/30/17 88.9 kg (196 lb) Lab: 08/06/17 CBC: CBC 6.13 hemoglobin 13 platelets 329 CMP: Sodium 141 potassium 3.8 BUN 12 creatinine 0.86 glucose 98 calcium 9.3 total bili 0.37 AST 22 ALT 43 alk phos 152 total protein 7.7 albumin 3.7 ASSESSMENT AND PLAN: Stefany has a low-risk breast cancer but clearly would benefit by taking an aromatase inhibitor which will cut her already low risk of recurrence in half. The Femara appears to be poorly tolerated at this time. Therefore I have asked her to trial a hold on it for now, and will haveher come back and see Dr. Randhawa to change the plan of care if necessary, within the next few weeks.Her alkaline phosphatase is up a little bit more and I will ask Dr. Randhawa to address this as well. It may simply be due to inflammation which is causing her myalgias. Plan is otherwise to check lab dea every 6-month basis and she will need yearly mammograms. Calli Bee, MSN, SOAP MAKER, AOCN Hematology/Oncology Nurse Practitioner [place], [place] [phone] documented in this encounter Plan of Treatment Not on filedocumented as of this encounter Procedures Procedure Name Priority Date/Time Associated Diagnosis Comme nts LAB SCAN 08/06/2017 12:00 AM Results for this EDT procedure are i n the results section . documented in this encounter Results SCAN DOC: LAB (08/06/2017 12:00 AM EDT) Narrative 08/06/2017 12:00 AM EDT This result has an attachment that is no t available. Ordered by an unspecified provider. Scanning Provider MEDIA MGR SCAN EXT ORDR/RSLT documented in this encounter Visit Diagnoses Diagnosis Cancer of left breast, stage 2 Malignant neoplasm of upper-outer quadra nt of left breast in female, estrogen receptor positive documented in this encounter
--- OUTSIDE RECORDS SUMMARY | 2022-05-09 00:59 | XMS_ITS | Encounter Summary ---
:1960 Author Organization [facility] [place] [address] Care Team Providers Name Role Phone Andrea Cho DO Primary Care Provider Reason for Visit Consultation (Routine) - Specialty Diagnoses / Procedures Referred By Contact Refer red To Contact Hematology and Diagnoses Personal history of malignant neoplasm of breast Malignant neoplasm of unspecified site of left female breast Andrea Cho DO [facility] Hem Onc Office Oncology [address] [place] [address] [phone] Fax: Referral ID Status Reason Start Date Expiration Date Visits V isits Requested Authorized [id number] Consult, Test 10/25/2018 10/25/2019 6 6 & Treat PCP Updated and/or Approved Encounter Details Date Type Department Care Team Description 10/06/2019 Office Visit Hematology/Oncology Anai Holcomb MD [facility] DR HEMATOLOGY/[place] [address] Malignant neoplasm of at [facility] [place] [facility] Jillian Mendez APRN [address] [place] [address] DR MEDICAL ONCOLOGY [place], [place] [phone] upper-outer quadrant [address] of left breast in [place], [place] female, est rogen [id number] receptor positive [phone] Social History Tobacco Use Types Packs/Day Years Used Date Former Smoker 11 03 Quit: 2006 Smokeless Tobacco: Never Used Alcohol Use Standard Drinks/Week Comments No 0 (1 standard drink = 0.6 oz pure alcoho l) Sex Assigned at Date Recorded Female 07/03/2021 6:34 PM EDT documented as of this encounter Last Filed Vital Signs Vital Sign Reading Time Taken Comments Blood Pressure 142/89 10/06/2019 3:20 PM EST Pulse 87 10/06/2019 3:20 PM EST Temperature 36.9 ??C (98.4 ??F) 10/06/2019 3:20 PM EST Respiratory Rate 18 10/06/2019 3:20 PM EST Oxygen Saturation 100% 10/06/2019 3:20 PM EST Inhaled Oxygen Concentration - - Weight 94.3 kg (208 lb) 10/06/2019 3:20 PM EST Height 162.6 cm (5' 4) 10/06/2019 3:20 PM EST Body Mass Index 35.7 10/06/2019 3:20 PM EST documented in this encounter Progress Notes Jillian Mendez, SILVESTRE - 10/06/2019 3:30 PM EST Diagnosis: Stage IIa adenocarcinoma left breast status post lumpectomy. The tumor was 2.1 x 1.8 cm ER/NH positive HER-2/claudette negative sentinel node negative. Status post lumpectomy and lumpectomy revision The patient's Oncotype DX was quite low at 15 representing a 10% chance of recurrence on estrogen blockers. Subjective: Stefany comes in today for follow-up of Stage IIa breast cancer. She is currently on therapy with Tamoxifen. Overall feeling well today. She was newly diagnosed with Type II diabetes and is now on insulin and Januvia. Hot flashes have improved on oxybutinin. . She is also concerned about the fact that she has gained about 35 lb since her surgery. She had some pain in her LLE and had a bone scan which was negative. Denies any chest pain or SOB. She is now taking oral iron- denies any vaginal bleeding or discharge. No blood in stools or dark tarry stools. She has had a colonoscopy and is due again in the next couple of years. She is a vegetarian and believes that is why she is iron deficient. Otherwise though review of systems is negative Past medical history and social history reviewed and unchanged from her previous visit. Past Medical History: Diagnosis Date ??? ADHD (attention deficit hyperactivity disorder) ??? Arthritis ??? Cancer of left breast, stage 2 ??? Depression ??? HBP (high blood pressure) ??? Migraine ??? Ovarian cyst Past Surgical History: Procedure Laterality Date ??? MASTECTOMY, PARTIAL Left 10/2016 ??? OVARIAN CYST REMOVAL Allergies Allergen Reactions ??? [place] Dermatitis ??? Aspirin Other (See Comments) Severe abdominal pain ??? Black Pepper Dermatitis ??? Blueberry Dermatitis ??? Clams Dermatitis ??? Femara [Letrozole] Other (See Comments) Arthralgias and myalgias ??? Gluten Other (See Comments) Abdominal pain ??? Malt Extract Other (See Comments) headache ??? Mushroom Dermatitis ??? [place] Dermatitis ??? Other [Unclassified Drug] Dermatitis Lobster [...] Father Bone. Query primary site Social History Socioeconomic History ??? Marital status: Spouse name: Not on file ??? Number of children: Not on file ??? Years of education: Not on file ??? Highest education level: Not on file Occupational History ??? Not on file Social Needs ??? Financial resource strain: Not on file ??? Food insecurity: Worry: Not on file Inability: Not on file ??? Transportation needs: Medical: Not on file Non-medical: Not on file Tobacco Use ??? Smoking status: Former Smoker Packs/day: 1.00 Years: 30.00 Pack years: 30.00 Last attempt to quit: 2007 Years since quittin.0 ??? Smokeless tobacco: Never Used Substance and Sexual Activity ??? Alcohol use: No ??? Drug use: No ??? Sexual activity: Not on file Lifestyle ??? Physical activity: Days per week: Not on file Minutes per session: Not on file ??? Stress: Not on file Relationships ??? Social connections: Talks on phone: Not on file Gets together: Not on file Attends jain service: Not on file Active member of club or organization: Not on file Attends meetings of clubs or organizations: Not on file Relationship status: Not on file ??? Intimate partner violence: Fear of current or ex partner: Not on file Emotionally abused: Not on file Physically abused: Not on file Forced sexual activity: Not on file Other Topics Concern ??? Not on file Social History Narrative Works third shift at [employer] Review of Systems Constitutional: Negative for fever, chills, activity change, fatigue and unexpected weight change. 10/06/19- Newly diagnosed Type II diabetes. HENT: Negative for sore throat, mouth sores and trouble swallowing. Hot flashes Eyes: Negative. Respiratory: Negative for cough, shortness of breath and wheezing. Cardiovascular: Negative for chest pain, palpitations and leg swelling. Gastrointestinal: Negative for nausea, vomiting, abdominal pain, diarrhea, constipation and abdominal distention. Genitourinary: Negative for dysuria and difficulty urinating. Musculoskeletal: Negative. Skin: Negative. Neurological: Negative. Hematological: Negative for adenopathy. Head: Normocephalic, without obvious abnormality, atraumatic Eyes: PERRL, conjunctiva/corneas clear, EOM's intact, fundi benign, both eyes Ears: Normal TM's and external ear canals, both ears Nose: Nares normal, septum midline, mucosa normal, no drainage or sinus tenderness Throat: Lips, mucosa, and tongue normal; teeth and gums normal Neck: Supple, symmetrical, trachea midline, no adenopathy, thyroid: not enlarged, symmetric, no tenderness/mass/nodules, no carotid bruit or JVD Back: Symmetric, no curvature, ROM normal, no CVA tenderness Lungs: Clear to auscultation bilaterally, respirations unlabored Chest Wall: No tenderness or deformity Breasts not examined today Heart: Regular rate and rhythm, S1, S2 normal, no murmur, rub or gallop Abdomen: Soft, non-tender, bowel sounds active all four quadrants, no masses, no organomegaly Extremities: Extremities normal, atraumatic, no cyanosis or edema Pulses: 2+ and symmetric Skin: Skin color, texture, turgor normal, no rashes or lesions Lymph nodes: Cervical, supraclavicular, and axillary nodes normal Neurologic: Normal Breast- Right breast without mass on palpation.No left or right axillary adenopathy. Left breast with well healed scar. No masses on palpation. Labs-10/06/19- Iron-47 TIBC-381 T Sat-12 Alk Phos-151 Glucose-118. ? Assessment/plan: Violeta returns for follow up of Stage IIA adenocarcinoma of left breast ER/NH+ Her 2-claudette negative s/p lumpectomy. Overall doing well on therapy with Tamoxifen. Having hot flashes which have been controlled with oxybutinin. She missed a month of Tamoxifen due to refill issues. Alk Phos is elevated again. She has been newly diagnosed with Type II diabetes and is on insulin and Januvia. Repeat alk phos with next visit. She is 3 years out - will plan to see her back in 6 months with yearly mammogram. Plan: 1. Breast cancer - continue Tamoxifen 20mg po daily. Follow up visit in 6 months with yearly mammogram. 2. Repeat CBC,CMP with next visit. documented in this encounter Plan of Treatment Not on filedocumented as of this encounter Visit Diagnoses Diagnosis Malignant neoplasm of upper-outer quadra nt of left breast in female, estrogen receptor positive documented in this encounter Care Teams Revenue Director Relationship Specialty Start Date End Date Andrea Cho DO PCP - General Family Medicine 10/12/[id number] [place] [address] documented as of this encounter
--- OUTSIDE RECORDS SUMMARY | 2022-05-09 00:59 | XMS_ITS | Encounter Summary ---
:1960 Author Organization [facility] [place] [address] Care Team Providers Name Role Phone Unavailable Primary Care Provider Unavailable Reason for Visit Reason Comments Breast Cancer Encounter Details Date Type Department Care Team Description 08/25/2017 Office Visit Hematology/Oncology Walter Randhawa, [place] cer of left breast, stage 2; at [facility] Malignant neoplasm of upper-outer quadra nt of left breast in female, estrogen receptor positive [address] [place] [address] [place], [place] [phone] (Wo rk) Social History Tobacco Use Types Packs/Day Years Used Date Former Smoker 1 Quit: 2006 Smokeless Tobacco: Never Used Alcohol Use Standard Drinks/Week Comments No 0 (1 standard drink = 0.6 oz pure alcoho l) Sex Assigned at Date Recorded Female 07/03/2021 6:34 PM EDT documented as of this encounter Last Filed Vital Signs Vital Sign Reading Time Taken Comments Blood Pressure 134/69 08/25/2017 11:08 AM EST Pulse 81 08/25/2017 11:08 AM EST Temperature 37.2 ??C (99 ??F) 08/25/2017 11:08 AM EST Respiratory Rate 18 08/25/2017 11:08 AM EST Oxygen Saturation 99% 08/25/2017 11:08 AM EST Inhaled Oxygen Concentration - - Weight 92.1 kg (203 lb) 08/25/2017 11:08 AM EST Height - - Body Mass Index 34.53 08/06/2017 11:05 AM EDT documented in this encounter Progress Notes Walter Randhawa MD - 08/25/2017 11:00 AM EST Diagnosis: Stage IIa adenocarcinoma left breast status post lumpectomy. The tumor was 2.1 x 1.8 cm ER/AR positive HER-2/claudette negative sentinel node negative. Status post lumpectomy and lumpectomy revision The patient's Oncotype DX was quite low at 15 representing a 10% chance of recurrence on estrogen blockers. SUBJECTIVE: Stefany comes in today for followup after she developed fairly significant arthralgias and myalgias on an aromatase inhibitor. She was seen by our nurse practitioner 3 weeks ago and with the symptoms, she went ahead and had her stop the medication. She is pleased to tell me today that the bone and muscle pain has resolved. She did have significant weight gain since her diagnosis and she attributes some of that to the aromatase inhibitor as well. She has been quite nervous overall and we talked about a variety of issues from the gallstones that she has with her apparently waiting until she is more symptomatic as far as her gallbladder goes to the reflux symptoms she is having to the dental x-rays that she is hoping not to have do every year. At any rate, we discussed whether or not to consider switching her to tamoxifen. We went over the difference in side effect profile. Myalgias are much less likely to occur with tamoxifen. Weight gain is less certain although in general that is not a problem with the medication. We talked about the risk of stroke, heart attack and blood clots, and talked about taking a baby aspirin a day which brought us back to the discussion on heartburn. She is on some Prilosec and I suspect that she would tolerate that. We also talked about a low risk of uterine cancer as well. After discussions today, she would like to go ahead and try that. Past Medical History: Diagnosis Date ??? ADHD (attention deficit hyperactivity disorder) ??? Arthritis ??? Cancer of left breast, stage 2 ??? Depression ??? HBP (high blood pressure) ??? Migraine ??? Ovarian cyst Past Surgical History: Procedure Laterality Date ??? MASTECTOMY, PARTIAL Left 10/2016 ??? OVARIAN CYST REMOVAL Allergies Allergen Reactions ??? [place] Dermatitis ??? Aspirin Other (See Comments) Severe abdominal pain ??? Black Pepper Dermatitis ??? Blueberry Dermatitis ??? Clams Dermatitis ??? Malt Extract Other (See Comments) headache ??? Mushroom Dermatitis ??? [place] Dermatitis ??? Other [Unclassified Drug] Dermatitis Lobster [...] Smoking status: Former Smoker Packs/day: 1.00 Years: 30. Quit date: 2006 ??? Smokeless tobacco: Never Used ??? Alcohol use No ??? Drug use: No ??? Sexual activity: Not on file Other Topics Concern ??? 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 HENT: Negative for sore throat, mouth sores and trouble swallowing. Eyes: Negative. Respiratory: Negative for cough, shortness [...] supraclavicular, and axillary nodes normal Neurologic: Normal SURGICAL PATHOLOGY REPORT Reports generated via electronic interface contain original data; however they are lacking the format of the original report. Caution should be taken when reading/interpreting unformatted reports. Name:? STEFANY ZHENG? Accession #:? [id number]? :? 1960 (Age: 56)?F? Collect Date:? 11/10/2016? Location:? [facility]? Receive Date:? 11/10/2016? Provider: RUSLAN DAWSON MD Copy to: YASMEEN CARDOZO NP ? Final Pathologic Diagnosis: Updated: 11/13/2016 SUMMARY DIAGNOSIS FOR MALIGNANT BREAST TUMORS AJCC (7th edition): pT2 pN0(sn) Laterality:?Left? Specimen:?Wire localization excisional biopsy; reexcision of lateral margin Tumor Type:?Invasive lobular Tumor Size:?2.1 x 1.8 x 1.2 cm Tumor Location:? Not specified [place] Combined Histologic Scores: ? Tubules:?3 ? Nuclei:?1 ? Mitotic Rate:? 1 (actual count <1/10 HPF with field diameter of 0.54 mm) ? Total:?5 Differentiation:? Well Margins:?Negative (0.25 mm from closest margin, lateral) DCIS:? Not identified % DCIS:?N/A DCIS margins:? N/A LVI:? Not identified Lymph nodes:? 0/4 (positive/total count) ER/AR:?ER positive (>90%); AR positive (40%) ([id number]) Her2/claudette:? 1+/negative (by immunohistochemistry) ([id number]) ?Non-amplified (by in situ hybridization; Her2/Chr17 ratio: 1.43) ([id number]) FINAL PATHOLOGIC DIAGNOSIS: BREAST, LEFT, LATERAL MARGIN, REEXCISION: - Residual invasive lobular carcinoma (block 9). - Tumor measures 0.3 cm in greatest dimension. - Surgical resection margin negative; invasive tumor present 0.25 mm from new lateral margin. - Extensive reactive and reparative change with multinucleated giant cells, consistent with prior surgery Laboratory is reviewed from her visit with the nurse practitioner. Her alkaline phosphatase was elevated at 152. As noted, she has known gallstones and she is thinking about having her gallbladder out. We talked about whether or not to do a bone scan or not. Certainly early on with the stage I breast cancer, the chances of her having metastatic bone or liver disease is next to zero. All that being said, I would favor simply watching that at this point. She is planning on having a cholecystectomy in the near future. We will go ahead and start tamoxifen 20 mg daily. I will see her back in a month to see how she is tolerating that and we will check lab at that time. documented in this encounter Plan of Treatment Not on filedocumented as of this encounter Visit Diagnoses Diagnosis Cancer of left breast, stage 2 Malignant neoplasm of upper-outer quadra nt of left breast in female, estrogen receptor positive documented in this encounter
--- OUTSIDE RECORDS SUMMARY | 2022-05-09 00:59 | XMS_ITS | Encounter Summary ---
:1960 Author Organization [facility] [place] [address] Care Team Providers Name Role Phone Andrea Cho DO Primary Care Provider Encounter Details Date Type Department Care Team Description 02/17/2020 Orders Only Hematology/Oncology Jillian Mendez Mali gnant neoplasm of at [facility] FLITCH HANGER upper-outer quadrant [address] of left breast in [place], [place] [facility] female, estrogen [phone] [place], [place] receptor positive [phone] (Wo rk) Social History Tobacco Use Types Packs/Day Years Used Date Former Smoker 11 03 Quit: 2006 Smokeless Tobacco: Never Used Alcohol Use Standard Drinks/Week Comments No 0 (1 standard drink = 0.6 oz pure alcoho l) Sex Assigned at Date Recorded Female 07/03/2021 6:34 PM EDT documented as of this encounter Plan of Treatment Not on filedocumented as of this encounter Visit Diagnoses Diagnosis Malignant neoplasm of upper-outer quadra nt of left breast in female, estrogen receptor positive documented in this encounter Care Teams Vessel Welder Relationship Specialty Start Date End Date Andrea Cho DO PCP - General Family Medicine 10/12/[address] [place] [address] [phone] documented as of this encounter
--- OUTSIDE RECORDS SUMMARY | 2022-05-09 00:59 | XMS_ITS | Encounter Summary ---
:1960 Author Organization [facility] [place] [address] Care Team Providers Name Role Phone Andrea Cho DO Primary Care Provider Encounter Details Date Type Department Care Team Description 04/24/2020 Orders Only Hematology and Oncology at [facility] Mcduffie APRN Hot flashes [facility] Jojo krishnamurthy [place] [address] [place] [address] [phone] (Wo rk) Social History Tobacco Use Types [...] as of this encounter Visit Diagnoses Diagnosis Hot flashes Symptomatic menopausal or female climact jagdish states documented in this encounter Care Teams Coldfusion Relationship Specialty Start Date End Date Andrea Cho DO PCP - General Family Medicine 10/12/[address] [place] [address] [phone] documented as of this encounter
--- OUTSIDE RECORDS SUMMARY | 2022-05-09 00:59 | XMS_ITS | Encounter Summary ---
:1960 Author Organization [facility] [place] [address] Care Team Providers Name Role Phone Andrea Cho DO Primary Care Provider Reason for Visit Consultation (Routine) - Specialty Diagnoses / Procedures Referred By Contact Refer red To Contact Hematology and Diagnoses Personal history of malignant neoplasm of breast Malignant neoplasm of unspecified site of left female breast Andrea Cho DO [facility] Hem Onc Office Oncology [address] [place] [address] [phone] Fax: Referral ID Status Reason Start Date Expiration Date Visits V isits Requested Authorized [id number] Consult, Test 10/25/2018 10/25/2019 6 6 & Treat PCP Updated and/or Approved Encounter Details Date Type Department Care Team Description 10/25/2018 Office Visit Hematology/Oncology Charlotte Mcduffie Canc er of left breast, at [facility] RECREATION SPECIALIST stage [address] [place] [phone] RADIATION ONCOLOGY [phone] [place], [place] [address] Social History Tobacco Use Types Packs/Day Years Used Date Former Smoker 11 03 Quit: 2006 Smokeless Tobacco: Never Used Alcohol Use Standard Drinks/Week Comments No 0 (1 standard drink = 0.6 oz pure alcoho l) Sex Assigned at Date Recorded Female 07/03/2021 6:34 PM EDT documented as of this encounter Last Filed Vital Signs Vital Sign Reading Time Taken Comments Blood Pressure 133/58 10/25/2018 1:53 PM EST Pulse 94 10/25/2018 1:53 PM EST Temperature 36.9 ??C (98.4 ??F) 10/25/2018 1:53 PM EST Respiratory Rate 18 10/25/2018 1:53 PM EST Oxygen Saturation 100% 10/25/2018 1:53 PM EST Inhaled Oxygen Concentration - - Weight 98.9 kg (218 lb) 10/25/2018 1:53 PM EST Height 163.3 cm (5' 4.29) 10/25/2018 1:53 PM EST copie d Body Mass Index 37.08 10/25/2018 1:53 PM EST documented in this encounter Patient Instructions Patient InstructionsCharlotte Mcduffie APRN - 10/25/2018 1:45 PM EST She will need a mammogram in the next 2 weeks and followup with provider in 6 months with labs prior. documented in this encounter Progress Notes Charlotte Mcduffie APRN - 10/25/2018 1:45 PM EST Diagnosis: Stage IIa adenocarcinoma left breast status post lumpectomy. The tumor was 2.1 x 1.8 cm ER/KS positive HER-2/claudette negative sentinel node negative. Status post lumpectomy and lumpectomy revision The patient's Oncotype DX was quite low at 15 representing a 10% chance of recurrence on estrogen blockers. Subjective: Stefany comes in today for follow-up on her breast cancer. We did switch her to tamoxifen and she wasnoted to have an increase in alkaline phosphatase but was scheduled for gallbladder surgery. She hashad that surgery and follow-up alkaline phosphatase returned to normal range. She continues to have problems with hot flashes. She has been on lexapro and celexa and neither have helped. She just recently started on venlafaxine. We will see if this helps reduce the severity of the hot flashes. She is also concerned about the fact that she has gained about 35 lb since her surgery and her blood sugar is elevated. Otherwise though review of systems is negative [...] OVARIAN CYST REMOVAL Allergies Allergen Reactions ??? [place] Dermatitis ??? Aspirin Other (See Comments) Severe abdominal pain ??? Black Pepper Dermatitis ??? Blueberry Dermatitis ??? Clams Dermatitis ??? Femara [Letrozole] Other (See Comments) Arthralgias and myalgias ??? Gluten Other (See Comments) Abdominal pain ??? Malt Extract Other (See Comments) headache ??? Mushroom Dermatitis ??? [place] Dermatitis ??? Other [Unclassified Drug] Dermatitis Lobster [...] ??? Highest education level: Not on file Social Needs ??? Financial resource strain: Not on file ??? Food insecurity - worry: Not on file ??? Food insecurity - inability: Not on file ??? Transportation needs - medical: Not on file ??? Transportation needs - non-medical: Not on file Occupational History ??? Not on file Tobacco Use ??? Smoking status: Former Smoker Packs/day: 1.00 Years: 30.00 Pack years: 30.00 Last attempt to quit: 2006 Years since quittin.0 ??? Smokeless tobacco: Never Used Substance and Sexual Activity ??? Alcohol use: No ??? Drug use: No ??? Sexual activity: Not on file Other Topics Concern ??? Not on file Social History Narrative Works third shift at [employer] Review of Systems Constitutional: Negative for fever, [...] supraclavicular, and axillary nodes normal Neurologic: Normal Temp: [36.9 ??C (98.4 ??F)] Heart Rate: [94] Resp: [18] BP: (133)/(58) SpO2: [100 %] Heart Rate from SPO2: -- SURGICAL PATHOLOGY REPORT Reports generated via electronic interface contain original data; however they are lacking the format of the original report. Caution should be taken when reading/interpreting unformatted reports. Name:? STEFANY ZHENG? Accession #:? [id number]? :? 1960 (Age: 56)?F? Collect Date:? 11/10/2016? Location:? [facility]? Receive Date:? 11/10/2016? Provider: RUSLAN DAWSON MD Copy to: YASMEEN CARDOZO NP ? Final Pathologic Diagnosis: Updated: 11/13/2016 SUMMARY DIAGNOSIS FOR MALIGNANT BREAST TUMORS AJCC (7th edition): pT2 pN0(sn) Laterality:?Left? Specimen:?Wire localization excisional biopsy; reexcision of lateral margin Tumor Type:?Invasive lobular Tumor Size:?2.1 x 1.8 x 1.2 cm Tumor Location:? Not specified [place] Combined Histologic Scores: ? Tubules:?3 ? Nuclei:?1 ? Mitotic Rate:? 1 (actual count <1/10 HPF with field diameter of 0.54 mm) ? Total:?5 Differentiation:? Well Margins:?Negative (0.25 mm from closest margin, lateral) DCIS:? Not identified % DCIS:?N/A DCIS margins:? N/A LVI:? Not identified Lymph nodes:? 0/4 (positive/total count) ER/KS:?ER positive (>90%); [place] positive (40%) ([id number]) Her2/claudette:? 1+/negative (by immunohistochemistry) ([id number]) ?Non-amplified (by in situ hybridization; Her2/Chr17 ratio: 1.43) ([id number]) FINAL PATHOLOGIC DIAGNOSIS: BREAST, LEFT, LATERAL MARGIN, REEXCISION: - Residual invasive lobular carcinoma (block 9). - Tumor measures 0.3 cm in greatest dimension. - Surgical resection margin negative; invasive tumor present 0.25 mm from new lateral margin. - Extensive reactive and reparative change with multinucleated giant cells, consistent with prior surgery Review of her laboratory today shows Glu 221 hemoglobin A1c 7.7 . Calcium is 8.7 electrolytes are normal creatinine is 0.94 albumin 3.2 CBC shows a white count of 5.70 hemoglobin 12.8 hematocrit 38.9 and platelet count of 251 Assessment/plan: Violeta is doing well . ALP is now returned essentially to normal. Hot flashes are now becoming more of a problem as her weight gain since her surgery. She tried lexapro and celexa and neither helped with the hot flashes. She is now on effexor. She started this within the last two weeks. She is not sure if it is helping or not. For now, she will continue with it. She will call if this continues to be an issue. As far as weight gain- she will meet with the route service representative at her PCP's office as she also needs to address her Glucose level and Hemoglobin A1C-of 7.7. She has an appointment in the next two weeks. She is also due for a mammogram. She will have one in the next two weeks. I will order it. otherwise, She will return for followup in 6 months with labs prior. documented in this encounter Plan of Treatment Not on filedocumented as of this encounter Procedures Procedure Name Priority Date/Time Associated Diagnosis Comme nts MAMMOGRAM SCAN 11/15/2018 12:00 AM Result s for this EST procedure are i n the results section . documented in this encounter Results SCAN DOC: MAMMOGRAM (11/15/2018 12:00 AM EST) Narrative 11/15/2018 12:00 AM EST This result has an attachment that is no t available. Ordered by an unspecified provider. Scanning Provider MEDIA MGR SCAN EXT ORDR/RSLT documented in this encounter Visit Diagnoses Diagnosis Cancer of left breast, stage 2 documented in this encounter Care Teams Wood Calker Relationship Specialty Start Date End Date Andrea Cho DO PCP - General Family Medicine 10/12/[address] [place] [address] documented as of this encounter
--- OUTSIDE RECORDS SUMMARY | 2022-05-09 00:59 | XMS_ITS | Encounter Summary ---
:1960 Author Organization [facility] Address [address] [place] [address] Care Team Providers Name Role Phone Andrea Cho DO Primary Care Provider Encounter Details Date Type Department Care Team Description 07/04/2021 Office Visit Hematology/Oncology Anai Holcomb MD [facility] [address] HEMATOLOGY/[place] [address] Malignant neoplasm of at [facility] Lissette Tipton [employer] [address] [place] [address] upper-outer quadrant [address] of left breast in [place], [place] female, adelaide zhou [phone] receptor positive [phone] Social History Tobacco Use Types Packs/Day Years Used Date Former Smoker 11 03 Quit: 2006 Smokeless Tobacco: Never Used Alcohol Use Standard Drinks/Week Comments No 0 (1 standard drink = 0.6 oz pure alcoho l) Sex Assigned at Date Recorded Female 07/03/2021 6:34 PM EDT documented as of this encounter Last Filed Vital Signs Vital Sign Reading Time Taken Comments Blood Pressure 143/80 07/04/2021 11:40 AM EDT Pulse 80 07/04/2021 11:40 AM EDT Temperature 36.6 ??C (97.8 ??F) 07/04/2021 11:40 AM EDT Respiratory Rate 16 07/04/2021 11:40 AM EDT Oxygen Saturation 100% 07/04/2021 11:40 AM EDT Inhaled Oxygen Concentration - - Weight 85.3 kg (188 lb) 07/04/2021 11:40 AM EDT Height 162.6 cm (5' 4.02) 07/04/2021 11:40 AM EDT Body Mass Index 32.25 07/04/2021 11:40 AM EDT documented in this encounter Progress Notes Shad Holcomb MD - 07/04/2021 11:30 AM EDT Subjective: Patient ID: Stefany Edward is a 61 y.o. female. HPI Left breast cancer 10/21 Mammographically detected Invasive lobular carcinoma, grade 2 ER positive, CA positive, HER-2 negative Partial mastectomy and sentinel node 2.1 x 1.8 cm, node negative Oncotype score 15, low risk, no chemo Complete RT 01/19 Start letrozole 01/19 Changed to tamoxifen due to muscle aches Effexor and oxybutynin added for sweats Self d/c tamoxifen 02/22 d/t cognitive SE Trial arimidex 03/25, self d/c 05/25 The patient returns to the [facility] in follow-up for her breast cancer. She has tried 3 separate hormonal therapy but really was intolerant of all of them. Stopped her Arimidex a couple of months ago after developing some GI symptoms. They have mostly resolved. Otherwise she feels well. She just recently had a negative mammogram. Still following with her primary care doctor for her other medical problems. Current Outpatient Medications: ??? Victoza 2-Juan Alberto 0.6 mg/0.1 mL (18 mg/3 mL) Pen Injector, inject 0.6 milligram subcutaneously dailyfor 7 days then inject ... (REFER TO PRESCRIPTION NOTES)., Disp: , Rfl: ??? oxybutynin (Ditropan) 5 mg Tablet, Take 2 tablets by mouth 2 times daily., Disp: 240 tablet, Rfl: 5 ??? magnesium 250 mg Tablet, Take by mouth., Disp: , Rfl: ??? atorvastatin (Lipitor) 40 mg Tablet, take 1 tablet by mouth once daily, Disp: , Rfl: ??? Dexmethylphenidate 10 mg Capsule, Multiphasic Rel.50-50, take 1 capsule by mouth every morning, Disp: , Rfl: ??? ferrous sulfate 325 mg (65 mg iron) Tablet, take 1 tablet by mouth once daily, Disp: , Rfl: ??? Lantus Solostar U-100 Insulin pen, 5 Units daily., Disp: , Rfl: ??? methylphenidate (Ritalin) 5 mg Tablet, TAKE 1 TABLET BY MOUTH AFTER THE 10MG OF FOCALIN WEARS OFF DAILY, MAXIMUM DAILY DOSE 5 MG, Disp: , Rfl: ??? FARXIGA 10 mg Tablet, Take 10 mg by mouth daily., Disp: , Rfl: 0 ??? cholecalciferol, Vitamin D3, 2,000 unit Capsule, Take 2,000 Units by mouth daily., Disp: , Rfl: ??? cyanocobalamin (VITAMIN B-12) 500 mcg Tablet, Take 500 mcg by mouth daily. Not sure oif dose. Takes 2 tabs daily, Disp: , Rfl: ??? venlafaxine (EFFEXOR-XR) 150 mg Capsule, Sust. Release 24 hr, Take 300 mg by mouth daily., Disp:, Rfl: ??? lisinopril-hydrochlorothiazide (PRINZIDE;ZESTORETIC) 10-12.5 mg Tablet, Take 1 tablet by mouth daily. Indications: hypertension, Disp: , Rfl: ??? rizatriptan (MAXALT) 10 mg Tablet, Take 10 mg by mouth as needed for Migraine. Reported on 04/09/2017, Disp: , Rfl: ??? anastrozole (Arimidex) 1 mg Tablet, Take 1 tablet by mouth daily. (Patient not taking: Reported on 07/04/2021), Disp: 30 tablet, Rfl: 11 Review of Systems Constitutional: Positive for diaphoresis. Negative for fatigue, fever and unexpected weight change. HENT: Negative for nosebleeds. Respiratory: Negative for cough and shortness of breath. Cardiovascular: Negative for chest pain and palpitations. Gastrointestinal: Negative for abdominal pain and diarrhea. Musculoskeletal: Negative for back pain. Skin: Negative for rash. Neurological: Negative for speech difficulty. Hematological: Negative for adenopathy. Does not bruise/bleed easily. All other systems reviewed and are negative. Objective: Physical Exam Constitutional: General: She is not in acute distress. HENT: Mouth/Throat: Mouth: Mucous membranes are moist. Eyes: General: No scleral icterus. Cardiovascular: Rate and Rhythm: Normal rate. Pulmonary: Effort: Pulmonary effort is normal. Skin: Findings: No rash. Neurological: Mental Status: She is alert and oriented to person, place, and time. BP 143/80 (Patient Position: Sitting) Pulse 80 Temp 36.6 ??C (97.8 ??F) (Temporal) Resp 16 Ht 162.6 cm (5' 4.02) Wt 85.3 kg (188 lb) SpO2 100% BMI 32.25 kg/m?? Assessment and Plan: 61-year-old female with stage II left breast cancer which had low risk molecular features. Her tumorwas ER positive. She completed optimal local therapy and has been on/off hormonal therapy for about 4 years. She really has not tolerated hormonal therapy very well at all. Today we reviewed the predict websites calculations for her overall survival. She is in a pretty good risk group even if she stops her hormonal therapy in terms of overall survival. After reviewing that we have decided to suspend further attempts at hormonal therapy especially given her intolerance toit. She is now about 4-1/2 years out from her surgery so we will plan to see her back in 6 months. If she remains stable at that point she can return to follow- up with her primary care doctor. The patient is in agreement with the plan. documented in this encounter Plan of Treatment Not on filedocumented as of this encounter Visit Diagnoses Diagnosis Malignant neoplasm of upper-outer quadra nt of left breast in female, estrogen receptor positive documented in this encounter Care Teams Flight Nurse Relationship Specialty Start Date End Date Andrea Cho DO PCP - General Family Medicine 10/12/[address] [place] [address] documented as of this encounter
--- OUTSIDE RECORDS SUMMARY | 2022-05-09 00:59 | XMS_ITS | Encounter Summary ---
:1960 Author Organization [facility] [place] [address] Care Team Providers Name Role Phone Andrea Cho DO Primary Care Provider Reason for Visit Reason Onset Date Comments Follow-up 11/26/2018 Encounter Details Date Type Department Care Team Description 11/26/2018 Telephone Hematology/Oncology at Monica Diaz RN Follow-up [address] [phone] Social History Tobacco Use Types Packs/Day Years Used Date Former Smoker 1 30 Quit: 2006 Smokeless Tobacco: Never Used Alcohol Use Standard Drinks/Week Comments No 0 (1 standard drink = 0.6 oz pure alcoho l) Sex Assigned at Date Recorded Female 07/03/2021 6:34 PM EDT documented as of this encounter Miscellaneous Notes Telephone Encounter - Monica Diaz RN - 11/26/2018 8:56 AM EST Pt had mammogram on 11/15/18. Dr. Segura reviewed and stated it is negative, pt due for another one in a year. Left message for pt about this. She will follow up with provider in 6 months. She will callwith questions or concerns. documented in this encounter Plan of Treatment Not on filedocumented as of this encounter Visit Diagnoses Not on filedocumented in this encounter Care Teams Financial Recruiter Relationship Specialty Start Date End Date Andrea Cho DO PCP - General Family Medicine 10/12/[address] [place] [id number] documented as of this encounter
--- OUTSIDE RECORDS SUMMARY | 2022-05-09 00:59 | XMS_ITS | Encounter Summary ---
:1960 Author Organization [facility] Address [address] [place] [address] Care Team Providers Name Role Phone Unavailable Primary Care Provider Unavailable Reason for Visit Reason Comments Radiation Follow-up Consultation (Urgent) - Specialty Diagnoses / Procedures Referred By Contact Refer red To Contact Hematology and Oncology Diagnoses Lobular CA of left breast [facility] Machelle Beasley MD [address] [place] [address] [address] [place] [id number] Referral ID Status Reason Start Date Expiration Date Visits V isits Requested Authorized [id number] Consult, Test 10/31/2016 10/31/2017 99 99 & Treat [facility] PCP Updated and/or Approved Encounter Details Date Type Department Care Team Description 03/30/2017 [facility] neoplasm of left female breast , unspecified site of breast; [facility] [place] Malignant neoplasm of left f emale breast, unspecified estrogen receptor status, unspecified site of breast [address] [place] [address] RADIATION ONCOL OGY [id number] [place] [address] Social History Tobacco Use Types Packs/Day Years Used Date Former Smoker 1 30 Quit: 2006 Alcohol Use Standard Drinks/Week Comments No 0 (1 standard drink = 0.6 oz pure alcoho l) Sex Assigned at Date Recorded Female 07/03/2021 6:34 PM EDT documented as of this encounter Last Filed Vital Signs Vital Sign Reading Time Taken Comments Blood Pressure 128/72 03/30/2017 2:00 PM EDT Pulse 80 03/30/2017 2:00 PM EDT Temperature 36.8 ??C (98.2 ??F) 03/30/2017 2:00 PM EDT Respiratory Rate 16 03/30/2017 2:00 PM EDT Oxygen Saturation 100% 03/30/2017 2:00 PM EDT Inhaled Oxygen Concentration - - Weight 88.9 kg (196 lb) 03/30/2017 2:00 PM EDT Height - - Body Mass Index 33.34 02/05/2017 2:15 PM EDT documented in this encounter Patient Instructions Patient InstructionsMedina Hardy MD - 03/30/2017 2:30 PM EDT Your exam shows that you are healing nicely from radiotherapy & there is no evidence of cancer. Mammograms have been ordered to be done in July @ [facility]. Someone will contact you to schedule the appointment. You may resume your regular deodorant on your left underarm. You may use a straight/regular razor on your left underarm. You may expose the irradiated area to sun, but it is recommended that you apply sunscreen with an SPF of @ least #45 on the irradiated area prior to exposing it to sun. You may swim in chlorinated water. We will mail you a letter with an appointment for followup in 6 months with myself or a Radiation Oncology application packaging specialist. documented in this encounter Progress Notes Medina Hardy MD - 03/30/2017 2:30 PM EDT CC: Sched'd fu s/p xrt completion. HPI: 57 y/o f who completed xrt 2 mos ago for breast ca, L, ILC, gr 2, ER+OH+, Her2 neg, s/p lumpectomy & SNB followed by reexcision, pT2 pN0, stage IIA. Her completed xrt is summarized as follows: 12/29/16 - 01/26/17, 42.56 Gy/16 fxs L breast using deep inspiration breath hold (DIBH) with 6 MV Xray external beam, followed by volume reduction & 10 Gy/4 fxs to lumpectomy bed using free breathing technique with 6 & 10 MV Xray external beam, boosting lumpectomy bed to 52.56 Gy/20 fxs. 3D xrt used. Since xrt completion, she has been started on femara. ROS: Skin w/in irrad'd area healed. No pain. No hand/arm swelling. ROM arms around shoulders ok. Past Medical History: Diagnosis Date ??? ADHD (attention deficit hyperactivity disorder) ??? Arthritis ??? Cancer of left breast, stage 2 ??? Depression ??? HBP (high blood pressure) ??? Migraine ??? Ovarian cyst Past Surgical History: Procedure Laterality Date ??? MASTECTOMY, PARTIAL Left 10/2016 ??? OVARIAN CYST REMOVAL Your Medications These changes are accurate as of: 03/30/17 11:59 PM. If you have any questions, ask your nurse or doctor. Continued medications, unchanged Dose Details cholecalciferol (Vitamin D3) 2,000 unit Cap Take 1 capsule by mouth daily. Generic drug: cholecalciferol (Vitamin D3) 1 capsule Refills: 0 CREAM BASE TOP Apply topically. Jeans Cream. Apply to area of radiation twice a day but no less than 2 hours beforea treatment. Refills: 0 cyanocobalamin 1,000 mcg Tab Take 1,000 mcg by mouth daily. 1000 mcg Refills: 0 fish oil-omega-3 fatty acids 1,000 mg Cap Take 2 g by mouth daily. Reported on 01/26/2017 2 g Refills: 0 FLUoxetine 20 mg Tab Commonly known as: PROzac Take 20 mg by mouth daily. Indications: Generalized Anxiety Disorder 20 mg Refills: 0 letrozole 2.5 mg Tab Commonly known as: FEMARA Take 1 tablet by mouth daily. 2.5 mg Quantity: 90 tablet Refills: 3 lisdexamfetamine 30 mg Cap Commonly known as: VYVANSE Take 30 mg by mouth every morning. 30 mg Refills: 0 lisinopril-hydrochlorothiazide 10-12.5 mg Tab Commonly known as: PRINZIDE;ZESTORETIC Take 1 tablet by mouth daily. Indications: hypertension 1 tablet Refills: 0 loratadine 10 mg Tab Commonly known as: CLARITIN Take 10 mg by mouth daily. Reported on 01/13/2017 10 mg Refills: 0 omeprazole 20 mg Cpdr Commonly known as: PriLOSEC Take 20 mg by mouth as needed. Reported on 01/20/2017 20 mg Refills: 0 rizatriptan 10 mg Tab Commonly known as: MAXALT Take 10 mg by mouth as needed for Migraine. Reported on 01/13/2017 10 mg Refills: 0 Physical Exam Constitutional: She is oriented to person, place, and time. She appears well- developed and well-nourished. No distress. BP 128/72 (Patient Position: Sitting) Pulse 80 Temp 36.8 ??C (98.2 ??F) (Oral) Resp 16 Wt 88.9 kg (196 lb) SpO2 100% BMI 33.34 kg/m2 HENT: Head: Normocephalic and atraumatic. Eyes: Conjunctivae and EOM are normal. Right eye exhibits no discharge. Left eye exhibits no discharge. No scleral icterus. Neck: Normal range of motion. Neck supple. No tracheal deviation present. No thyromegaly present. Pulmonary/Chest: Effort normal and breath sounds normal. No stridor. No respiratory distress. She has no wheezes. She has no rales. She exhibits no tenderness. Right breast exhibits no inverted nipple,no mass, no nipple discharge, no skin change and no tenderness. Left breast exhibits skin change (Mild hyperpigmentation, consistent w/expected post xrt appearance.). Left breast exhibits no inverted nipple, no mass, no nipple discharge and no tenderness. Abdominal: Soft. She exhibits no distension and no mass. There is no tenderness. There is no reboundand no guarding. Musculoskeletal: Normal range of motion. She exhibits no edema or tenderness. Lymphadenopathy: Head (right side): No submental, no submandibular, no preauricular, no posterior auricular and no occipital adenopathy present. Head (left side): No submental, no submandibular, no preauricular, no posterior auricular and no occipital adenopathy present. She has no cervical adenopathy. She has no axillary adenopathy. Right: No supraclavicular adenopathy present. Left: No supraclavicular adenopathy present. Neurological: She is alert and oriented to person, place, and time. No cranial nerve deficit. She exhibits normal muscle tone. Coordination normal. Skin: She is not diaphoretic. Psychiatric: She has a normal mood and affect. Her behavior is normal. Judgment and thought content normal. A: Healing from xrt. P: Care of irrad'd skin discussed. B mmgs ordered for Jul 2017 ([facility]). Rtc 6 mos. documented in this encounter Miscellaneous Notes Addendum Note - Doroteo Sweeney RN - 06/19/2017 10:59 AM EDT Addended by: DOROTEO SWEENEY on: 06/19/2017 10:59 AM Modules accepted: Orders documented in this encounter Plan of Treatment Not on filedocumented as of this encounter Visit Diagnoses Diagnosis Malignant neoplasm of left female breast , unspecified estrogen receptor status, unspecified site of breast documented in this encounter
--- OUTSIDE RECORDS SUMMARY | 2022-05-09 00:59 | XMS_ITS | Encounter Summary ---
:1960 Author Organization [facility] [place] [address] Care Team Providers Name Role Phone Andrea Cho DO Primary Care Provider Reason for Visit Reason Comments Radiation Follow-up breast cancer Encounter Details Date Type Department Care Team Description 02/03/2019 Office Visit Radiation Oncology at [facility] tara Schulte APRN Hot flashes [address] RADIATION ONCOLOGY [facility] [id number] [phone] Social History Tobacco Use Types Packs/Day Years Used Date Former Smoker 1 Quit: 2006 Smokeless Tobacco: Never Used Alcohol Use Standard Drinks/Week Comments No 0 (1 standard drink = 0.6 oz pure alcoho l) Sex Assigned at Date Recorded Female 07/03/2021 6:34 PM EDT documented as of this encounter Last Filed Vital Signs Vital Sign Reading Time Taken Comments Blood Pressure 103/72 02/03/2019 9:08 AM EDT Pulse 88 02/03/2019 9:08 AM EDT Temperature 36.4 ??C (97.5 ??F) 02/03/2019 9:08 AM EDT Respiratory Rate 20 02/03/2019 9:08 AM EDT Oxygen Saturation 99% 02/03/2019 9:08 AM EDT Inhaled Oxygen Concentration - - Weight 95.7 kg (211 lb) 02/03/2019 9:08 AM EDT Height 165.1 cm (5' 5) 02/03/2019 9:08 AM EDT Body Mass Index 35.11 02/03/2019 9:08 AM EDT documented in this encounter Progress Notes Jessica Moreira, EMOTIONAL SUPPORT TEACHER - 02/03/2019 9:00 AM EDT Patient ID: Stefany Edward is a 58 y.o. female with left breast cancer, ILC, gr 2, ER+AZ+, Her2 neg, s/p lumpectomy & SNB followed by reexcision, pT2 pN0, stage IIA. She was treated with radiationtherapy for a dose of 52.56 Gy which was completed on 01/26/2017. She was started on hormonal tx following radiation therapy. She is in clinic for scheduled followup. HPI 56 y/o f who presented abnormal left breast mammogram ?? 08/22/16 needle bxs L breast. ?? [facility] path: ILC, ER+AZ+, Her2 RAYRAY neg. ?? 10/08/16 US guided NLOC R breast lumpectomy & SNB. 4 clips placed into cavity medially & laterally; superiorly & inferiorly for radiation purposes. breast ca, L, ILC, gr 2, ER+AZ+, Her2 neg, s/p lumpectomy & SNB followed by reexcision, pT2 pN0, stage IIA. ?? [facility] path: ILC, gr 2, 24 mm, tumor focality cannot be determined - indeterminate per outside report;LVI cannot be determined, a few suspicious foci; RM + for invasive ca, lateral, focal; no dcis; 4 sentinel lymph nodes (all neg); pT2 pN0. ?? 11/10/16 reexcision L breast. ?? Path: SUMMARY DIAGNOSIS FOR MALIGNANT BREAST TUMORS AJCC (7th edition): pT2 pN0(sn) Laterality:?Left? Specimen:?Wire localization excisional biopsy; reexcision of lateral margin Tumor Type:?Invasive lobular Tumor Size:?2.1 x 1.8 x 1.2 cm Tumor Location:? Not specified [place] Combined Histologic Scores: ? Tubules:?3 ? Nuclei:?1 ? Mitotic Rate:? 1 (actual count <1/10 HPF with field diameter of 0.54 mm) ? Total:?5 Differentiation:? Well Margins:?Negative (0.25 mm from closest margin, lateral) DCIS:? Not identified % DCIS:?N/A DCIS margins:? N/A LVI:? Not identified Lymph nodes:? 0/4 (positive/total count) ER/AZ:?ER positive (>90%); AZ positive (40%) ([id number]) Her2/claudette:? 1+/negative (by immunohistochemistry) ([id number]) ?Non-amplified (by in situ hybridization; Her2/Chr17 ratio: 1.43) ([id number]) FINAL PATHOLOGIC DIAGNOSIS: BREAST, LEFT, LATERAL MARGIN, REEXCISION: - Residual invasive lobular carcinoma (block 9). - Tumor measures 0.3 cm in greatest dimension. - Surgical resection margin negative; invasive tumor present 0.25 mm from new lateral margin. - Extensive reactive and reparative change with multinucleated giant cells, consistent with prior surgery. ? She was seen by Dr. Randhawa of Heme-Onc, & Oncotype DX obtained. Score of 15 which represents a 10% change of recurrence on estrogen blockers Radiation therapy Her completed xrt is summarized as follows: 12/29/16 - 01/26/17, 42.56 Gy/16 fxs L breast using deep inspiration breath hold (DIBH) with 6 MV Xray external beam, followed by volume reduction & 10 Gy/4 fxs to lumpectomy bed using free breathing technique with 6 & 10 MV Xray external beam, boosting lumpectomy bed to 52.56 Gy/20 fxs. 3D xrt used. ?? Hormone therapy: switching from aromatase inhibitor to tamoxifen because of muscle aches and pains and joint discomfort Breast Cancer Notes / Treatment summary reviewed with patient and copy given to her and copy sent toPCP 12/24/2017 BREAST CANCER NOTES 12/24/2017 Method of Cancer Detection Mammogram detected mass/breast change left breast Date of Diagnostic Biopsy 08/22/2016 Local Surgery Lumpectomy done on 10/08/2016 Axillary Management [place] nodes alone Total Number of Nodes Removed 4 nodes removed Total Nodes Positive 0 nodes were positive Date of Last Surgical Procedure 11/10/2016--re-excision and found more disease 0.3 cm of additional disease and negative margin Histology Invasive lobular carcinoma Tumor Staging from Staging System [id number] Stage 2 T2= mass that is from 2 cm to 5 cm N0= no lymph node involvement M0= no distant spread Size of Primary Malignancy 2.4 cm Grade intermediate ER--estrogen receptor positive AZ- progesterone receptor positive HER-2/FISH negative Oncotype Recurrence Score 15 which means a 10% risk of disease recurrence with hormone therapy Endocrine Therapy Recommended for Hormone Sensitive Invasive Tumor Yes -started letrozole 02/05/2017 and switched to Tamoxifen 08/2017 due side effects from letrozole Dates of radiation 12/29/2016 through 01/26/2017 Radiation Sim [place] Protocol Radiation Boost yes Total Dosage of Radiation 52.56 Gy Surveillance 10/26/2017- mammogram--no evidence of malignancy 2-08/2019- mammogram--no evidence of malignancy Treatment side effects Tamoxifen induced severe hot flashes Patient Active Problem List Diagnosis Code ??? Malignant neoplasm of left female breast C50.912 ??? Cancer of left breast, stage 2 C50.912 Past Surgical History: Procedure Laterality Date ??? MASTECTOMY, PARTIAL Left 10/2016 ??? OVARIAN CYST REMOVAL Allergies Allergen Reactions ??? [place] Dermatitis ??? Aspirin Other (See Comments) Severe abdominal pain ??? Black Pepper Dermatitis ??? Blueberry Dermatitis ??? Clams Dermatitis ??? Femara [Letrozole] Other (See Comments) Arthralgias and myalgias ??? Gluten Other (See Comments) Abdominal pain ??? Malt Extract Other (See Comments) headache ??? Mushroom Dermatitis ??? [place] Dermatitis ??? Other [Unclassified Drug] Dermatitis Lobster causes severe itching ??? Peanut Dermatitis ??? Pollen Extracts Other (See Comments) rhinorrhea ??? Sesame Dermatitis Medications 02/03/19 0922 Medication Sig Taking? FARXIGA 10 mg Tablet Take 10 mg by mouth daily. Yes tamoxifen (NOLVADEX) 20 mg Tablet Take 1 tablet by mouth daily. Yes cholecalciferol, Vitamin D3, 2,000 unit Capsule Take 2,000 Units by mouth daily. Yes cyanocobalamin (VITAMIN B-12) 500 mcg Tablet Take 500 mcg by mouth daily. Not sure oif dose. Takes 2tabs daily Yes venlafaxine (EFFEXOR-XR) 150 mg Capsule, Sust. Release 24 hr Take 300 mg by mouth daily. Yes celecoxib (CELEBREX) 200 mg Capsule Take 200 mg by mouth daily. Yes dextroamphetamine-amphetamine (ADDERALL) 10 mg Tablet Take 20 mg by mouth Every 12 hours. Yes ranitidine (ZANTAC) 150 mg Tablet Take 150 mg by mouth 2 times daily. Yes omeprazole (PRILOSEC) 20 mg Capsule, Delayed Release(E.C.) Take 20 mg by mouth daily. Reported on 01/20/2017 Yes loratadine (CLARITIN) 10 mg Tablet Take 10 mg by mouth daily. Reported on 01/13/2017 Yes lisinopril-hydrochlorothiazide (PRINZIDE;ZESTORETIC) 10-12.5 mg Tablet Take 1 tablet by mouth daily.Indications: hypertension Yes rizatriptan (MAXALT) 10 mg Tablet Take 10 mg by mouth as needed for Migraine. Reported on 04/09/2017 Yes magnesium 250 mg Tablet Take 250 mg by mouth daily. multivitamin with minerals Tablet Take 1 tablet by mouth daily. fish oil-omega-3 fatty acids 1,000 mg Capsule Take 2 g by mouth daily. Reported on 01/26/2017 Review and update of social history Social Supports: pt's primary support is her Edwin of 10 years. [place] her [place] a daughter and a son in [place] [facility] and [facility]. Pt has friends in [place]. ?? Living Situation/Daily Activities/Transportation: Pt and manage their daily chores and activities. Pt does not have any problems with transportation. ?? 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 There are currently 8 residents. She has BCBS for insurance. She did not indicate any concerns re finances or insurance. ?? Advance Directives: Pt has not completed her advance directive but does have the information at home. She wants her to be her DPOA. ?? Utilization of Community Resources: None at this time. ?? Adjustment to Illness/Mental Health Issues: Pt indicated she is coping as well at this time. ?? Interim History: Mrs Edward reports that she is doing well. Time from completion of treatment 2 years Problems at primary site (breast) none Metastatic symptoms: none Pain none Breast tenderness mild Skin changes breast none Lymphedema none Persistent cough none Persistent headaches none ROM restriction none Functional status Independent in ADL and IADL Smoking none Activity/exercise Walking --5,000 to 6,000 steps a day. No other formal exercise Hormone therapy side effects Severe hot flashes during the day from [place] which she is finding distressing. Misc Ache left leg after riding in car, and occ when walking. Working on losing weight--has lost 10 lbs maily with diet modification Shortness of breath due to mitral valve prolapse Review of Systems Constitutional: Positive for diaphoresis. Negative for activity change, appetite change, fatigue, fever and unexpected weight change. Drenching hot flashes --daytime only HENT: Negative. Respiratory: Positive for shortness of breath. Negative for cough, chest tightness and wheezing. Shortness of breath with exertion Cardiovascular: Negative. Negative for chest pain and leg swelling. Has mitral valve prolapse --which leads to shortness of breath Gastrointestinal: Negative. Endocrine: Has DM--recently started on Farxiga --has not tolerated metformin --working with PCP to get BG control Genitourinary: Negative. Mild stress incontinence Musculoskeletal: Negative. Left leg intermittent pain. Skin: Negative. Neurological: Negative. Hematological: Negative. Psychiatric/Behavioral: Negative. Vitals Office Visit from 02/03/2019 in Radiation Oncology at [facility] Weight 95.7 kg (211 lb) Height 165.1 cm (5' 5) BSA (Calculated - sq m) 2.09 sq meters BMI (Calculated) 35.11 Temp 36.4 ??C (97.5 ??F) Temp src Oral Heart Rate 88 Heart Rate Source NIBP Resp 20 BP 103/72 BP Location Right arm Patient Position Sitting SpO2 99 % Objective: Physical Exam Constitutional: She is oriented to person, place, and time. She appears well- developed and well-nourished. No distress. HENT: Head: Normocephalic and atraumatic. Eyes: Conjunctivae and EOM are normal. Right eye exhibits no discharge. Left eye exhibits no discharge. No scleral icterus. Neck: Neck supple. Cardiovascular: Normal rate and regular rhythm. Murmur heard. Pulmonary/Chest: Effort normal and breath sounds normal. No respiratory distress. She has no wheezes. She has no rales. She exhibits no tenderness. Abdominal: Soft. Bowel sounds are normal. She exhibits no distension. There is no hepatomegaly. There is no tenderness. There is no rebound and no CVA tenderness. Musculoskeletal: Normal range of motion. She exhibits no edema, tenderness or deformity. Lymphadenopathy: Head (right side): No submental, no submandibular, no tonsillar, no preauricular, no posterior auricular and no occipital adenopathy present. Head (left side): No submental, no submandibular, no tonsillar, no preauricular, no posterior auricular and no occipital adenopathy present. She has no cervical adenopathy. She has no axillary adenopathy. Right: No supraclavicular adenopathy present. Left: No supraclavicular adenopathy present. Neurological: She is alert and oriented to person, place, and time. Coordination normal. Skin: Skin is warm and dry. No rash noted. She is not diaphoretic. No erythema. No pallor. Psychiatric: She has a normal mood and affect. Her behavior is normal. Judgment and thought content normal. Vitals reviewed. Breast__X__ no nipple discharge, no dryness, no erythema, no tenderness, mild breast lymphedema, no lymphedema of arm Treated site: ____Right or __X__Left, _X___Breast or Chest wall Telangectasias: _X___None, ____Few; Moderate; Many and confluent Hypopigmentation: __X__None; ____Slight or localized; ____Marked or generalized Hyperpigmentation: __X__None; ____Slight or localized; ____Marked or generalized Fibrosis: __X___None; Increased density; ____Marked increased density + retraction; ____ Very marked Dry skin: __X__None; ____Asymptomatic; symptomatic; Interferes with ADL Cosmetic Result: __X__ Excellent; Good;____ Fair; ____Poor 10/26/2017- mammogram--no evidence of malignancy 11/15/2018- mammogram--no evidence of malignancy Assessment and Plan: Stefany Edward is a 58 y.o. female with left breast cancer, ILC, gr 2, ER+AZ+, Her2 neg, s/p lumpectomy & SNB followed by reexcision, pT2 pN0, stage IIA. She was treated with radiation therapy fora dose of 52.56 Gy which was completed on 01/26/2017. She was started on hormonal tx following radiation therapy. She was initially started on letrozole and due to severe side effects switched to tamoxifen. She is having increased problems with hot flashes during the day. The hot flashes are drenching.Effexor was increased by PCP to 300 mg to manage patient's depression and this did not reduce the hot flashes. Hot flashes have been distressing--[facility] published a study by Dr Ramon Paz 09/2018 where they studied the use of oxybutynin for hot flashes and found that in the 150 women that were studied that the drug was well tolerated at a dose of 5 mg twice a day and that this dose of medication reduced hot flashes by 80%. We will trial this with patient since continuation of her hormone therapy is important in the management of her H/O of breast cancer. She is to have a repeat mammogram 11/2019 I will call patient in 2-3 weeks to assess the response to the start of the oxybutynin in managing her hot flashes We will otherwise see patient again in one year. She will be seen by medical oncology in the interim. documented in this encounter Plan of Treatment Not on filedocumented as of this encounter Visit Diagnoses Diagnosis Hot flashes Symptomatic menopausal or female climact jagdish states documented in this encounter Care Teams Computer Systems Technician Relationship Specialty Start Date End Date Andrea Cho DO PCP - General Family Medicine 10/12/[address] [place] [address] documented as of this encounter
--- OUTSIDE RECORDS SUMMARY | 2022-05-09 00:59 | XMS_ITS | Encounter Summary ---
:1960 Author Organization [facility] [place] [address] Care Team Providers Name Role Phone Andrea Cho DO Primary Care Provider Encounter Details Date Type Department Care Team Description 11/25/2017 Orders Only Hematology/Oncology at [facility] neoplasm of [facility] RN upper-outer quadrant of [address] [place] [address] Drive left breast in female, [place], [place] estrogen re ceptor [phone] positive [phone] Social History Tobacco Use Types Packs/Day Years [...] positive documented in this encounter Care Teams Spinneret Person Relationship Specialty Start Date End Date Andrea Cho DO PCP - General Family Medicine 10/12/17 [facility] [place] [place] [address] documented as of this encounter
--- OUTSIDE RECORDS SUMMARY | 2022-05-09 00:59 | XMS_ITS | Encounter Summary ---
:1960 Author Organization [facility] [place] [address] Care Team Providers Name Role Phone Andrea Cho DO Primary Care Provider Reason for Visit Reason Onset Date Comments Prior Authorization 12/24/2018 PA for Tamoxifen Encounter Details Date Type Department Care Team Description 12/24/2018 Telephone Hematology/Oncology at [facility], Prior Authorization ([facility] RN for Tamoxifen) [address] [place] [phone] Social History Tobacco Use Types Packs/Day Years Used Date Former Smoker 1 30 Quit: 2006 Smokeless Tobacco: Never Used Alcohol Use Standard Drinks/Week Comments No 0 (1 standard drink = 0.6 oz pure alcoho l) Sex Assigned at Date Recorded Female 07/03/2021 6:34 PM EDT documented as of this encounter Miscellaneous Notes Telephone Encounter - [facility] RN - 12/24/2018 2:04 PM EDT [facility]. Contacted Insurance at to initiate PA. Information given as requested. Contact Karen, stated we would be receiving a decision in 24-48 hours. When decision known please call Aditi at [phone]. documented in this encounter Plan of Treatment Not on filedocumented as of this encounter Visit Diagnoses Not on filedocumented in this encounter Care Teams Admissions Clinician Relationship Specialty Start Date End Date Andrea Cho DO PCP - General Family Medicine 10/12/[address] [place] [address] documented as of this encounter
--- OUTSIDE RECORDS SUMMARY | 2022-05-09 00:59 | XMS_ITS | Encounter Summary ---
:1960 Author Organization [facility] Address [address] [place] [address] Care Team Providers Name Role Phone Andrea Cho Primary Care Provider Reason for Visit Reason Comments Skin Lesion Encounter Details Date Type Department Care Team Description 03/16/2020 Office Visit Dermatology at [facility] Kumar Brewer MD SK (seborrheic keratosis); Road [facility] Stucco keratoses; [address] Dermatofibroma [facility] [id number] [address]-DERMATOLOGY [phone] [place], [place] [address] Social History Tobacco Use Types Packs/Day Years Used Date Former Smoker 11 03 Quit: 2006 Smokeless Tobacco: Never Used Alcohol Use Standard Drinks/Week Comments No 0 (1 standard drink = 0.6 oz pure alcoho l) Sex Assigned at Date Recorded Female 07/03/2021 6:34 PM EDT documented as of this encounter Patient Instructions Patient InstructionsLolis Dockery CCMA - 03/16/2020 1:30 PM EDT Images from the original note were not included. Stucco keratoses - Apply to the affected area twice daily as needed. documented in this encounter Progress Notes Kumar Brewer - 03/16/2020 1:30 PM EDT Images from the original note were not included. DERMATOLOGY - NEW PATIENT NOTE Date of service: 03/16/2020 Stefany Edward : 1960, 60 y.o. Chief Complaint: Chief Complaint Patient presents with ??? Skin Lesion HPI: Stefany Edward is a 60 y.o. female self-referred with the following concerns: Patient presents today for a spot of concern on the right thigh. There is a scaly, raised spot on the right thigh noticed one month ago. Asymptomatic. No bleeding. Never been treated or biopsied. Patient has no other concerning lesions today. Denies any other lesions that are changing, growing, bleeding or tender. Relevant Skin History: - Skin cancer (including type): none Family History: Melanoma: none Relevant Social History: - lives in [facility]: Current Outpatient Medications Medication Sig Dispense Refill ??? tamoxifen (NOLVADEX) 20 mg Tablet Take 1 tablet by mouth daily. 90 tablet 11 ??? JANUVIA 100 mg Tablet take 1 tablet by mouth once daily ??? methylphenidate HCl (CONCERTA) 36 mg Tablet Extended Rel 24 hr 54 mg. 0 ??? FARXIGA 10 mg Tablet Take 10 mg by mouth daily. 0 ??? oxybutynin (DITROPAN) 5 mg Tablet Take 1 tablet by mouth 2 times daily. 180 tablet 3 ??? cholecalciferol, Vitamin D3, 2,000 unit Capsule Take 2,000 Units by mouth daily. ??? cyanocobalamin (VITAMIN B-12) 500 mcg Tablet Take 500 mcg by mouth daily. Not sure oif dose. Takes 2 tabs daily ??? venlafaxine (EFFEXOR-XR) 150 mg Capsule, Sust. Release 24 hr Take 300 mg by mouth daily. ??? celecoxib (CELEBREX) 200 mg Capsule Take 200 mg by mouth daily. ??? ranitidine (ZANTAC) 150 mg Tablet Take 150 mg by mouth 2 times daily. ??? omeprazole (PRILOSEC) 20 mg Capsule, Delayed Release(E.C.) Take 20 mg by mouth daily. Reported on 01/20/2017 ??? loratadine (CLARITIN) 10 mg Tablet Take 10 mg by mouth daily. Reported on 01/13/2017 ??? lisinopril-hydrochlorothiazide (PRINZIDE;ZESTORETIC) 10-12.5 mg Tablet Take 1 tablet by mouth daily. Indications: hypertension ??? rizatriptan (MAXALT) 10 mg Tablet Take 10 mg by mouth as needed for Migraine. Reported on 04/09/2017 No current facility-administered medications for this visit. Allergies: Allergies Allergen Reactions ??? [place] Dermatitis ??? Aspirin Other (See Comments) Severe abdominal pain ??? Black Pepper Dermatitis ??? Blueberry Dermatitis ??? Clams Dermatitis ??? Femara [Letrozole] Other (See Comments) Arthralgias and myalgias ??? Gluten Other (See Comments) Abdominal pain ??? Malt Extract Other (See Comments) headache ??? Mushroom Dermatitis ??? [place] Dermatitis ??? Other [Unclassified Drug] Dermatitis Lobster causes severe itching ??? Peanut Dermatitis ??? Pollen Extracts Other (See Comments) rhinorrhea ??? Sesame Dermatitis Review of Systems: - General: Feels well - Skin: No other skin concerns. Examination: - Constitutional: Patient was alert, well-appearing and in no noticeable distress. - Focused Exam: Skin examination of the legs was normal with the exception of the findings listed below - A nurse/MA was present and on standby during my examination. Diagnosis/Skin findings/Assessment/Plan: 1.Seborrheic Keratosis: Scattered brown and flesh colored waxy nummular stuck on plaques located on right thigh. - Reassured of benign nature, return to clinic if these lesions become inflamed or irritating 2. Stucco Keratosis: On the bilateral legs, warty stuck on hyperkeratotic papules. Stucco keratoses,sometimes referred to as barnacles, are papular warty lesions resembling seborrheic keratoses that commonly occur on the lower legs and feet of the elderly, particularly in men. There is no racial predilection. They are benign and usually asymptomatic. - discussed treatment options including LN2 vs. Curettage - Can attempt urea 40% OTC cream or Amlactin BID also. Dermatofibroma - firm pink papule with peripheral pigmentation on the right knee. - Reviewed benign nature of these skin lesions. No treatment necessary. If they become irritated, punch removal is an option but would be trading the papule for a scar. - Patient opted for no treatment at this time. RTC: PRN Note initiated by DEREK Short. I, DEREK Short, have performed the documentation for this encounter in the presence of and acting as a scribe for Kumar Brewer MD. I performed the services which were documented by the scribe, and I agree with the accuracy of the documentation in this encounter. Kumar Brewer MD Reviewed and signed by Kumar Brewer MD Resident in Dermatology [facility] staff pullman car clerk: Carmen Figueroa MD Section of Dermatology [facility] Carmen Figueroa MD - 03/16/2020 1:30 PM EDT I was the supervising physician working with dermatology resident Dr. Brewer in the dermatology clinicduring this patient visit. The level of Resident supervision for this patient visit was indirect supervision with direct supervision immediately available. (definition: [facility] GME Policy Statement on Graduate Medical Education, Supervision of Graduate Medical Trainees) I was immediately available to for questions and discussion regarding this visit. I have reviewed his encounter note details and level of service. Carmen Figueroa MD Staff Physician documented in this encounter Plan of Treatment Not on filedocumented as of this encounter Visit Diagnoses Diagnosis SK (seborrheic keratosis) Other seborrheic keratosis Stucco keratoses Dermatofibroma Benign neoplasm of skin, site unspecifie d documented in this encounter Care Teams Drop Machine Operator Relationship Specialty Start Date End Date Andrea Cho DO PCP - General Family Medicine 10/12/17 [address] [facility] [place] [address] documented as of this encounter
--- OUTSIDE RECORDS SUMMARY | 2022-05-09 00:59 | XMS_ITS | Encounter Summary ---
:1960 Author Organization [facility] [place] [address] Care Team Providers Name Role Phone Andrea Cho DO Primary Care Provider Reason for Visit Consultation (Routine) - Specialty Diagnoses / Procedures Referred By Contact Refer red To Contact Hematology and Diagnoses Personal history of malignant neoplasm of breast Malignant neoplasm of unspecified site of left female breast Andrea Cho DO [facility] Hem Onc Office Oncology [address] [place] [address] [phone] Fax: Referral ID Status Reason Start Date Expiration Date Visits V isits Requested Authorized [id number] Consult, Test 10/25/2018 10/25/2019 6 6 & Treat PCP Updated and/or Approved Encounter Details Date Type Department Care Team Description 04/26/2019 Office Visit Hematology/Oncology Desi Cardona Ho rmone receptor at [facility] C, TEACHING YOUNG positive malignant [address] [place] [address] Dr neoplasm of breast, [place], [place] unspeci fied [id number] laterality [phone] (Wo rk) Social History Tobacco Use Types [...] Sign Reading Time Taken Comments Blood Pressure 125/73 04/26/2019 8:16 AM EDT Pulse 91 04/26/2019 8:16 AM EDT Temperature 36.7 ??C (98.1 ??F) 04/26/2019 8:16 AM EDT Respiratory Rate 18 04/26/2019 8:16 AM EDT Oxygen Saturation 100% 04/26/2019 8:16 AM EDT Inhaled Oxygen Concentration - - Weight 90.4 kg (199 lb 3.2 oz) 04/26/2019 8:16 AM EDT Height 165.1 cm (5' 5) 04/26/2019 8:16 AM EDT Body Mass Index 33.15 04/26/2019 8:16 AM EDT documented in this encounter Progress Notes Desi Cardona, SILVESTRE - 04/26/2019 8:00 AM EDT Subjective: Patient ID: Stefany Edward is a 59 y.o. female. Diagnosis: Left breast cancer HPI: Stage IIa adenocarcinoma left breast status post lumpectomy. The tumor was 2.1 x 1.8 cm ER/WA positive HER-2/claudette negative sentinel node negative. Status post lumpectomy and lumpectomy revision The patient's Oncotype DX was quite low at 15 representing a 10% chance of recurrence on estrogen blockers. Interim History: Stefany Edward returnts to clinic today for labs, repeat evaluation and CBE. She continues on Tamoxifen therapy, 20mg daily. She reports occasional left axillary discomfort that resolves without intervention. She denies fever, chills, night sweats or unusual bleeding. PMH, PSH, FH, and SH: Except as mentioned in the interim history, unchanged since last office visit. Review of Systems Constitutional: Negative. HENT: Negative. Respiratory: Negative. Cardiovascular: Negative. Gastrointestinal: Negative. Endocrine: Negative. Genitourinary: Negative. Musculoskeletal: Negative. Skin: Negative. Allergic/Immunologic: Negative. Neurological: Negative. Hematological: Negative. Psychiatric/Behavioral: Negative. Objective: Physical Exam Constitutional: She is oriented to person, place, and time. She appears well-developed. HENT: Head: Normocephalic and atraumatic. Nose: Nose normal. Mouth/Throat: Oropharynx is clear and moist. Neck: Normal range of motion. Neck supple. Cardiovascular: Normal rate and regular rhythm. Pulmonary/Chest: Effort normal and breath sounds normal. Abdominal: Soft. Bowel sounds are normal. Musculoskeletal: Normal range of motion. Neurological: She is alert and oriented to person, place, and time. Skin: Skin is warm and dry. Psychiatric: She has a normal mood and affect. Her behavior is normal. Thought content normal. Vitals: BP 125/73 (Patient Position: Sitting) Pulse 91 Temp 36.7 ??C (98.1 ??F) (Oral) Resp 18 Ht 165.1 cm (5' 5) Wt 90.4 kg (199 lb 3.2 oz) SpO2 100% BMI 33.15 kg/m?? 12/21/18 LABs: WBC 6.13, Hgb./Hct. 13.1/39.2, Plts. 254, ANC 3.61, HgbA1C 7.0, TSH 1.98. Mammogram diagnostic BL 11/15/18 IMPRESSION: No evidence of malignancy. Yearly mammography is recommended. Assessment and Plan: 1. Breast cancer. Currently being treated with Tamoxifen 20mg, daily. 2. Reviewed lab results with patient and Mammogram results. Continue on current dose and frequency of Tamoxifen. 3. Follow up for annual mammograms as scheduled. 4 RTC in 3 months for labs, repeat evaluation and CBE. Desi Cardona, MSN, TEACHING YOUNG, AOCNP documented in this encounter Plan of Treatment Not on filedocumented as of this encounter Visit Diagnoses Diagnosis Hormone receptor positive malignant neop lasm of breast, unspecified laterality documented in this encounter Care Teams Commercial Real Estate Manager Relationship Specialty Start Date End Date Andrea Cho DO PCP - General Family Medicine 10/12/[address] [place] [address] documented as of this encounter
--- OUTSIDE RECORDS SUMMARY | 2022-05-09 00:59 | XMS_ITS | Encounter Summary ---
:1960 Author Organization [facility] [place] [address] Care Team Providers Name Role Phone Andrea Cho DO Primary Care Provider Reason for Visit Reason Comments Breast Cancer Encounter Details Date Type Department Care Team Description 01/11/2018 Office Visit Hematology/Oncology Walter Randhawa Mal ignant neoplasm of at [facility] upper-outer quadrant [address] of left breast in [place], [place] female, estrogen [phone] receptor positive [phone] (Wo rk) Social History Tobacco Use Types Packs/Day Years Used Date Former Smoker 1 Quit: 2006 Smokeless Tobacco: Never Used Alcohol Use Standard Drinks/Week Comments No 0 (1 standard drink = 0.6 oz pure alcoho l) Sex Assigned at Date Recorded Female 07/03/2021 6:34 PM EDT documented as of this encounter Last Filed Vital Signs Vital Sign Reading Time Taken Comments Blood Pressure 125/63 01/11/2018 2:06 PM EDT Pulse 80 01/11/2018 2:06 PM EDT Temperature 36.7 ??C (98.1 ??F) 01/11/2018 2:06 PM EDT Respiratory Rate 16 01/11/2018 2:06 PM EDT Oxygen Saturation 97% 01/11/2018 2:06 PM EDT Inhaled Oxygen Concentration - - Weight 94.3 kg (208 lb) 01/11/2018 2:06 PM EDT Height 163.3 cm (5' 4.29) 01/11/2018 2:06 PM EDT copie d Body Mass Index 35.38 01/11/2018 2:06 PM EDT documented in this encounter Progress Notes Walter Randhawa MD - 01/11/2018 1:30 PM EDT Diagnosis: Stage IIa adenocarcinoma left breast status post lumpectomy. The tumor was 2.1 x 1.8 cm ER/IL positive HER-2/claudette negative sentinel node negative. Status [...] gallbladder surgery. She hashad that surgery and is doing well in that regard although she still has a little bit of incisional discomfort related to her laparoscopic surgery. She is compliant with her tamoxifen and notes no further joint problems. She is starting to work on a exercise and diet program to get her weight down. She has been reading on the Internet about her lab values which interestingly included a BUN which we confirmed with the lab of 0. (For some reason I could not report a BUN creatinine ratio either) she had a few not insignificant highs and lows in her lab and we went over all those in detail. Review of systems though is otherwise quite negative. Past Medical History: Diagnosis Date ??? ADHD (attention deficit hyperactivity disorder) ??? Arthritis ??? Cancer of left breast, stage 2 ??? Depression ??? HBP (high blood pressure) ??? Migraine ??? Ovarian cyst Past Surgical History: Procedure Laterality Date ??? MASTECTOMY, PARTIAL Left 10/2016 ??? OVARIAN CYST REMOVAL Allergies Allergen Reactions ??? [place] Dermatitis ??? Aspirin Other (See Comments) Severe abdominal pain ??? Black Pepper Dermatitis ??? Blueberry Dermatitis ??? Clams Dermatitis ??? Femara [Letrozole] Other (See Comments) Arthralgias and myalgias ??? Malt Extract Other (See Comments) headache ??? Mushroom Dermatitis ??? [place] Dermatitis ??? 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 Name:? STEFANY ZHENG? Accession #:? [id number]? :? 1960 (Age: 56)?F? Collect Date:? 11/10/2016? Location:? [facility]? Receive Date:? 11/10/2016? Provider: RUSLAN DAWSON MD Copy to: YASMEEN CARDOZO NP ? Final Pathologic Diagnosis: Updated: 11/13/2016 SUMMARY DIAGNOSIS FOR MALIGNANT BREAST TUMORS AJCC (7th edition): pT2 pN0(sn) Laterality:?Left? Specimen:?Wire localization excisional biopsy; reexcision of lateral margin Tumor Type:?Invasive lobular Tumor Size:?2.1 x 1.8 x 1.2 cm Tumor Location:? Not specified [place] Combined Histologic Scores: ? Tubules:?3 ? Nuclei:?1 ? Mitotic Rate:? 1 (actual count <1/10 HPF with field diameter of 0.54 mm) ? Total:?5 Differentiation:? Well Margins:?Negative (0.25 mm from closest margin, lateral) DCIS:? Not identified % DCIS:?N/A DCIS margins:? N/A LVI:? Not identified Lymph nodes:? 0/4 (positive/total count) ER/IL:?ER positive (>90%); IL positive (40%) ([id number]) Her2/claudette:? 1+/negative (by immunohistochemistry) ([id number]) ?Non-amplified (by in situ hybridization; Her2/Chr17 ratio: 1.43) ([id number]) FINAL PATHOLOGIC DIAGNOSIS: BREAST, LEFT, LATERAL MARGIN, REEXCISION: - Residual invasive lobular carcinoma (block 9). - Tumor measures 0.3 cm in greatest dimension. - Surgical resection margin negative; invasive tumor present 0.25 mm from new lateral margin. - Extensive reactive and reparative change with multinucleated giant cells, consistent with prior surgery Review of her laboratory today shows continued improvement in her alkaline phosphatase dropping [id number] presurgery now down to 137. Calcium is 8.7 electrolytes are normal creatinine is 0.71 albumin 3.3 CBC shows a white count of 8.36 hemoglobin 12.8 hematocrit 39.7 and platelet count of 276 Assessment/plan: Violeta is doing well and has the expected improvement in alkaline phosphatase posttreatment of her gallbladder problem. I would like to make sure that things continue to go down towards normal and will see her back in 3 months time with a CBC and CMP. If alkaline phosphatase starts back up I would consider doing a staging workup at this point although she is at low risk for recurrence. All things considered however this is what one would expect post surgery. She will call if there is issues or problemsin the interim documented in this encounter Plan of Treatment Not on filedocumented as of this encounter Procedures Procedure Name Priority Date/Time Associated Diagnosis Comme nts LAB SCAN 12/29/2017 12:00 AM Results for this EDT procedure are i n the results section . MAMMOGRAM SCAN 10/26/2017 12:00 AM Result s for this EST procedure are i n the results section . documented in this encounter Results SCAN DOC: LAB (12/29/2017 12:00 AM EDT) Narrative 12/29/2017 12:00 AM EDT This result has an attachment that is no t available. Ordered by an unspecified provider. Scanning Provider MEDIA MGR SCAN EXT ORDR/RSLT SCAN DOC: MAMMOGRAM (10/26/2017 12:00 AM EST) Narrative 10/26/2017 12:00 AM EST This result has an attachment that is no t available. Ordered by an unspecified provider. Scanning Provider MEDIA MGR SCAN EXT ORDR/RSLT documented in this encounter Visit Diagnoses Diagnosis Malignant neoplasm of upper-outer quadra nt of left breast in female, estrogen receptor positive documented in this encounter Care Teams Sexual Assault Nurse Relationship Specialty Start Date End Date Andrea Cho DO PCP - General Family Medicine 10/12/[address] [place] [address] documented as of this encounter
--- OUTSIDE RECORDS SUMMARY | 2022-05-09 00:59 | XMS_ITS | Encounter Summary ---
:1960 Author Organization [facility] [place] [address] Care Team Providers Name Role Phone Andrea Cho DO Primary Care Provider Reason for Visit Reason Comments Medication Refill Encounter Details Date Type Department Care Team Description 03/12/2021 Refill Hematology/Oncology at Reji Mendez APRN Malignant neoplasm of [address] upper-outer quadrant of [address] [place] [address] MEDICAL ONCOLOGY left breast in female, [place], [place] estroge n receptor [id number] positive [phone] (Wo rk) Social History Tobacco Use Types [...] positive documented in this encounter Care Teams Concrete Pouring Supervisor Relationship Specialty Start Date End Date Andrea Coh DO PCP - General Family Medicine 10/12/[address] [place] [id number] documented as of this encounter
--- OUTSIDE RECORDS SUMMARY | 2022-05-09 00:59 | XMS_ITS | Encounter Summary ---
:1960 Author Organization [facility] Address [address] [place] [address] Care Team Providers Name Role Phone Andrea Cho DO Primary Care Provider Encounter Details Date Type Department Care Team Description 12/28/2019 Orders Only Hematology and Charlotte Mcduffie, Malignant neoplasm of Oncology at [facility] GIS WEB DEVELOPER upper-outer quadrant [facility] of left breast in [place], [place] [address] RADIATION ONCOLOGY receptor positive [phone] [place], [place] [address] Social History Tobacco Use Types [...] positive documented in this encounter Care Teams Software Implementation Project Manager Relationship Specialty Start Date End Date Andrea Cho, PCP - General Family Medicine 10/12/[address] [place] [phone] documented as of this encounter
--- OUTSIDE RECORDS SUMMARY | 2022-05-09 00:59 | XMS_ITS | Encounter Summary ---
:1960 Author Organization [facility] [place] [address] Care Team Providers Name Role Phone Andrea Cho DO Primary Care Provider Reason for Visit Reason Onset Date Comments Medication Refill 02/14/2021 Encounter Details Date Type Department Care Team Description 02/14/2021 Refill Hematology/Oncology at Shad Cruz MD Hot flashes [address] HEMATOLOGY/ONCOLOGY DEPT. [place], [place] [address] [place] [address] [phone] (Wo rk) Social History Tobacco Use Types [...] states documented in this encounter Care Teams Business Practices Officer Relationship Specialty Start Date End Date Andrea Cho DO PCP - General Family Medicine 10/12/[address] [place] [address] [phone] documented as of this encounter
--- OUTSIDE RECORDS SUMMARY | 2022-05-09 00:59 | XMS_ITS | Encounter Summary ---
:1960 Author Organization [facility] [place] [address] Care Team Providers Name Role Phone Andrea Cho DO Primary Care Provider Encounter Details Date Type Department Care Team Description 05/24/2020 Office Visit Hematology/Oncology Anai Holcomb MD [facility] DR HEMATOLOGY/[place] [address]; [address] [facility] Lissette Tipton APRN [address] [place] [address] [place] [address] Malignant neoplasm of upper-outer quadra nt of left breast in female, estrogen receptor positive [address] [place] [address] [phone] Social History Tobacco Use Types Packs/Day Years Used Date Former Smoker 1 Quit: 2006 Smokeless Tobacco: Never Used Alcohol Use Standard Drinks/Week Comments No 0 (1 standard drink = 0.6 oz pure alcoho l) Sex Assigned at Date Recorded Female 07/03/2021 6:34 PM EDT documented as of this encounter Last Filed Vital Signs Vital Sign Reading Time Taken Comments Blood Pressure 126/58 05/24/2020 8:40 AM EDT Pulse 108 05/24/2020 8:40 AM EDT Temperature 36.6 ??C (97.9 ??F) 05/24/2020 8:40 AM EDT Respiratory Rate 20 05/24/2020 8:40 AM EDT Oxygen Saturation 99% 05/24/2020 8:40 AM EDT Inhaled Oxygen Concentration - - Weight 93.9 kg (207 lb) 05/24/2020 8:40 AM EDT Height 162.6 cm (5' 4) 05/24/2020 8:40 AM EDT Body Mass Index 35.53 05/24/2020 8:40 AM EDT documented in this encounter Progress Notes Shad Holcomb MD - 05/24/2020 8:30 AM EDT Subjective: Patient ID: Stefany Edward is a 60 y.o. female. HPI Left breast cancer 10/21 Mammographically detected Invasive lobular carcinoma, grade 2 ER positive, TN positive, HER-2 negative Partial mastectomy and sentinel node 2.1 x 1.8 cm, node negative Oncotype score 15, low risk, no chemo Complete RT 01/19 Start letrozole 01/19 Changed to tamoxifen due to muscle aches Effexor and oxybutynin added for sweats I am meeting the patient for the first time in the [facility]. Her history of breast cancer is as noted above. She is currently on tamoxifen. Overall she is doing okay except for hot flashes and sweats which are quite severe. Previously she felt like the oxybutynin has helped her somewhat but over the last several months the sweats have returned. She has not noted any lumps or bumps. No history of blood clots. No vaginal discharge. Current Outpatient Medications: ??? atorvastatin (Lipitor) 40 mg Tablet, take 1 tablet by mouth once daily, Disp: , Rfl: ??? Dexmethylphenidate 10 mg Capsule, Multiphasic Rel.50-50, take 1 capsule by mouth every morning, Disp: , Rfl: ??? ferrous sulfate 325 mg (65 mg iron) Tablet, take 1 tablet by mouth once daily, Disp: , Rfl: ??? Lantus Solostar U-100 Insulin pen, INJECT 10 UNITS SUBCUTANEOUSLY DAILY, Disp: , Rfl: ??? methylphenidate (Ritalin) 5 mg Tablet, TAKE 1 TABLET BY MOUTH AFTER THE 10MG OF FOCALIN WEARS OFF DAILY, MAXIMUM DAILY DOSE 5 MG, Disp: , Rfl: ??? oxybutynin (Ditropan) 5 mg Tablet, Take 2 tablets by mouth 2 times daily., Disp: 180 tablet, Rfl: 3 ??? tamoxifen (NOLVADEX) 20 mg Tablet, Take 1 tablet by mouth daily., Disp: 90 tablet, Rfl: 11 ??? JANUVIA 100 mg Tablet, take 1 tablet by mouth once daily, Disp: , Rfl: ??? FARXIGA 10 mg [...] mg by mouth daily., Disp:, Rfl: ??? ranitidine (ZANTAC) 150 mg Tablet, Take 150 mg by mouth 2 times daily., Disp: , Rfl: ??? loratadine (CLARITIN) 10 mg Tablet, Take 10 mg by mouth daily. Reported on 01/13/2017, Disp: , Rfl: ??? lisinopril-hydrochlorothiazide (PRINZIDE;ZESTORETIC) 10-12.5 mg Tablet, Take 1 tablet by mouth daily. Indications: hypertension, Disp: , Rfl: ??? celecoxib (CELEBREX) 200 mg Capsule, Take 200 mg by mouth daily., Disp: , Rfl: ??? omeprazole (PRILOSEC) 20 mg Capsule, Delayed Release(E.C.), Take 20 mg by mouth daily. Reported on 01/20/2017, Disp: , Rfl: ??? rizatriptan (MAXALT) 10 mg Tablet, Take 10 mg by mouth as needed for Migraine. Reported on 04/09/2017, Disp: , Rfl: Review of Systems Constitutional: Positive for diaphoresis. [...] is not in acute distress. HENT: Mouth/Throat: Pharynx: No oropharyngeal exudate. Eyes: General: No scleral icterus. Cardiovascular: Rate and Rhythm: Normal rate and regular rhythm. Heart sounds: Normal heart sounds. Pulmonary: Effort: Pulmonary effort is normal. Breath sounds: Normal breath sounds. No wheezing. Abdominal: General: Bowel sounds are normal. Palpations: Abdomen is soft. There is no mass. Tenderness: There is no abdominal tenderness. Lymphadenopathy: Cervical: No cervical adenopathy. Skin: Findings: No rash. Neurological: Mental Status: She is alert and oriented to person, place, and time. White count 7.2, hemoglobin 13.1, platelets 303 Creatinine 1.87, alk phos 93 Assessment and Plan: 60-year-old female with stage II left breast cancer which had low risk molecular features. Her tumorwas ER positive. She completed optimal local therapy and has been on hormonal therapy for about 3-1/2 years. Her biggest problem is her sweats from the tamoxifen. I reviewed the rationale for hormonal blockingtherapy in the setting of ER positive breast cancer and she agrees to continue our therapy. We agreed to trial a slight increase in the dose of oxybutynin up to 10 mg twice a day and I sent a new prescription in for her. We also reviewed the duration of hormonal therapy. I went over the CTS 5 calculator with her. Based on her clinical features she is at low risk for recurrence after 5 years with only a 3.9% risk through the years 5-10. That would be considered insufficient risk to continue for prolonged duration hormon al therapy. We will plan to see her back about every 6 months. She tells me she is scheduled to see radiation oncology in 1 month so we will try to push that appointment out and try to alternate with them if they are going to continue seeing her. She will remain on the hormonal therapy until about January 2022 documented in this encounter Plan of Treatment Not on filedocumented as of this encounter Visit Diagnoses Diagnosis Hot flashes Symptomatic menopausal or female climact jagdish states Malignant neoplasm of upper-outer quadra nt of left breast in female, estrogen receptor positive documented in this encounter Care Teams Business Development Engineer Relationship Specialty Start Date End Date Andrea Cho DO PCP - General Family Medicine 10/12/[address] [place] [address] documented as of this encounter
--- OUTSIDE RECORDS SUMMARY | 2022-05-09 00:59 | XMS_ITS | Encounter Summary ---
:1960 Author Organization [facility] Address [address] [place] [address] Care Team Providers Name Role Phone Unavailable Primary Care Provider Unavailable Reason for Visit Consultation (Urgent) - Specialty Diagnoses / Procedures Referred By Contact Refer red To Contact Hematology and Oncology Diagnoses Lobular CA of left breast [facility] Machelle Beasley MD [address] [facility] [address] [place] [id number] Referral ID Status Reason Start Date Expiration Date Visits V isits Requested Authorized [id number] Consult, Test 10/31/2016 10/31/2017 [facility] PCP Updated and/or Approved Encounter Details Date Type Department Care Team Description 04/09/2017 Office Visit Hematology/Oncology Calli Bee Canc er of left breast, stage 2; at [facility] PHYS ASSISTANT Malignant neoplasm of upper-outer quadra nt of left female breast [address] [place], [place] [address] [place] [address] [phone] (Wo rk) Social History Tobacco Use Types [...] Sign Reading Time Taken Comments Blood Pressure 112/68 04/09/2017 3:11 PM EDT Pulse 82 04/09/2017 3:11 PM EDT Temperature 36.9 ??C (98.4 ??F) 04/09/2017 3:11 PM EDT Respiratory Rate 16 04/09/2017 3:11 PM EDT Oxygen Saturation 99% 04/09/2017 3:11 PM EDT Inhaled Oxygen Concentration - - Weight 91.2 kg (201 lb) 04/09/2017 3:11 PM EDT Height 163.3 cm (5' 4.29) 04/09/2017 3:11 PM EDT Body Mass Index 34.19 04/09/2017 3:11 PM EDT documented in this encounter Progress Notes Calli Bee, PHYS ASSISTANT - 04/09/2017 3:00 PM EDT Diagnosis: Stage IIa adenocarcinoma left breast status post lumpectomy. The tumor was 2.1 x 1.8 cm ER/NJ positive HER-2/claudette negative sentinel node negative. Status [...] xrt used. Started Femara on 02/05/17 SUBJECTIVE: Stfeany comes in today for followup after recently starting Femara a month ago. Past Medical History: Diagnosis Date ??? ADHD (attention deficit hyperactivity disorder) ??? Arthritis ??? Cancer of left breast, stage 2 ??? Depression ??? HBP (high blood pressure) ??? Migraine ??? Ovarian cyst Past Surgical History: Procedure Laterality Date ??? MASTECTOMY, PARTIAL Left 10/2016 ??? OVARIAN CYST REMOVAL Allergies Allergen Reactions ??? [place] Dermatitis ??? Aspirin Other (See Comments) Severe abdominal pain ??? Black Pepper Dermatitis ??? Blueberry Dermatitis ??? Clams Dermatitis ??? Malt Extract Other (See Comments) headache ??? Mushroom Dermatitis ??? [place] Dermatitis ??? Other [Unclassified Drug] Dermatitis Lobster [...] 30.00 Quit date: 2006 ??? Smokeless tobacco: Not on file ??? Alcohol use No ??? Drug use: No ??? Sexual activity: Not on file Other Topics Concern ??? Not on file Social History Narrative Works third shift at [employer] Review of Systems Constitution: Positive for weight gain. HENT: Negative. Eyes: Negative. Cardiovascular: Positive for dyspnea on exertion. Respiratory: Negative. Skin: Negative. Gastrointestinal: Positive for abdominal pain (RUQ- told she has gallstones.). Neurological: Negative. Psychiatric/Behavioral: The patient is nervous/anxious. Difficulty sleeping [...] Lungs: Clear to auscultation bilaterally, respirations unlabored Heart: Regular rate and rhythm, S1, S2 normal, no murmur, rub or gallop Abdomen: Soft, non-tender, no masses, no organomegaly Extremities: Extremities normal, atraumatic, no cyanosis or edema Skin: Skin color, texture, turgor normal, no rashes or lesions Lymph nodes: Cervical, supraclavicular, and axillary nodes normal Neurologic: Normal; nl patellar reflexes; email administrator grossly intact Vitals BP 112/68 (Patient Position: Sitting) Pulse 82 Temp 36.9 ??C (98.4 ??F) (Oral) Resp 16 Ht 163.3 cm (5' 4.29) Wt 91.2 kg (201 lb) SpO2 99% BMI 34.19 kg/m2 Weight Wt Readings from Last 3 Encounters: 04/09/17 91.2 kg (201 lb) 03/30/17 88.9 kg (196 lb) 02/05/17 87.1 kg (192 lb) Lab: 03/03/17 CBC: WBC 4.35 hemoglobin 13 platelets 298 CMP: Sodium 139 potassium 3.4 BUN 16 creatinine 0.79 glucose 105 calcium 9.2 total bili 0.23 AST 18 ALT 33 alkaline phosphatase 127 total protein 7.3 albumin 3.6 ASSESSMENT AND PLAN: Stefany has a low-risk breast cancer but clearly would benefit by taking an aromatase inhibitor which will cut her already low risk of recurrence in half. She was agreeable to starton Femara 2.5 mg daily. She is tolerating well except for weight gain and hot flashes. We decided totry some neurontin qhs for the hot flashes and to help her sleep. Since her last labs were done in February, we will plan to see her back in Aug. Her alkaline phosphatase was slightly elevated today, we will plan to watch. Plan is to check lab on an every 6-month basis and she will need yearly mammograms. Calli Bee, MSN, PROJECT SYSTEMS ENGINEER, AOCN Hematology/Oncology Nurse Practitioner [place], [place] [phone] documented in this encounter Plan of Treatment Not on filedocumented as of this encounter Visit Diagnoses Diagnosis Cancer of left breast, stage 2 Malignant neoplasm of upper-outer quadra nt of left female breast Malignant neoplasm of upper-outer quadra nt of female breast documented in this encounter
--- OUTSIDE RECORDS SUMMARY | 2022-05-09 00:59 | XMS_ITS | Encounter Summary ---
:1960 Author Organization [facility] [place] [address] Care Team Providers Name Role Phone Andrea Cho DO Primary Care Provider Reason for Visit Reason Comments Breast Cancer Encounter Details Date Type Department Care Team Description 04/15/2018 Office Visit Hematology/Oncology Walter Randhawa Mal ignant neoplasm of at [facility] upper-outer quadrant [address] of left breast in [place], [place] female, estrogen [id number] receptor positive [phone] (Wo rk) Social History Tobacco Use Types Packs/Day Years Used Date Former Smoker 1 Quit: 2006 Smokeless Tobacco: Never Used Alcohol Use Standard Drinks/Week Comments No 0 (1 standard drink = 0.6 oz pure alcoho l) Sex Assigned at Date Recorded Female 07/03/2021 6:34 PM EDT documented as of this encounter Last Filed Vital Signs Vital Sign Reading Time Taken Comments Blood Pressure 158/76 04/15/2018 1:37 PM EDT Pulse 99 04/15/2018 1:37 PM EDT Temperature 37 ??C (98.6 ??F) 04/15/2018 1:37 PM EDT Respiratory Rate 16 04/15/2018 1:37 PM EDT Oxygen Saturation 99% 04/15/2018 1:37 PM EDT Inhaled Oxygen Concentration - - Weight 96.8 kg (213 lb 6.4 oz) 04/15/2018 1:37 PM EDT Height 163.3 cm (5' 4.29) 04/15/2018 1:37 PM EDT karlee dodson Body Mass Index 36.3 04/15/2018 1:37 PM EDT documented in this encounter Progress Notes Walter Randhawa MD - 04/15/2018 1:30 PM EDT Diagnosis: Stage IIa adenocarcinoma left breast status post lumpectomy. The tumor was 2.1 x 1.8 cm ER/DC positive HER-2/claudette negative sentinel node negative. Status [...] hashad that surgery and follow-up alkaline phosphatase had improved but we wanted to make sure the trend was still downwards. Her surgery her weight been going up. She is also having problems again with hot flashes. She is on Lexapro but does not think that is helping and is wondering about switching to Celexa which can be a bit more effective in this situation. We will make the switch and we discussed tapering off 1 and tapering up on the other. Otherwise though review of systems is negative Past medical history and social history reviewed and unchanged from when I saw her 3 months ago Past Medical History: Diagnosis Date ??? ADHD (attention deficit hyperactivity disorder) ??? Arthritis ??? Cancer of left breast, stage 2 ??? Depression ??? HBP (high blood pressure) ??? Migraine ??? Ovarian cyst Past Surgical History: Procedure Laterality Date ??? MASTECTOMY, PARTIAL Left 10/2016 ??? OVARIAN CYST REMOVAL Allergies Allergen Reactions ??? [place] Dermatitis ??? Aspirin Other (See Comments) Severe abdominal pain ??? Black Pepper Dermatitis ??? Blueberry Dermatitis ??? Clams Dermatitis ??? Femara [Letrozole] Other (See Comments) Arthralgias and myalgias ??? Malt Extract Other (See Comments) headache ??? Mushroom Dermatitis ??? [place] Dermatitis ??? Other [Unclassified Drug] Dermatitis Lobster [...] Social History Narrative Works third shift at [employer] Review of Systems Constitutional: Negative for fever, [...] be taken when reading/interpreting unformatted reports. Name:? NORM STEFANY Larsen? Accession #:? [id number]? :? 1960 (Age: 56)?F? Collect Date:? 11/10/2016? Location:? [facility]? Receive Date:? 11/10/2016? Provider: RUSLAN DAWSON MD Copy to: YASMEEN CARDOZO NP ? Final Pathologic Diagnosis: Updated: 11/13/2016 SUMMARY DIAGNOSIS FOR MALIGNANT BREAST TUMORS AJCC (7th edition): pT2 pN0(sn) Laterality:?Left? Specimen:?Wire localization excisional biopsy; reexcision of lateral margin Tumor Type:?Invasive lobular Tumor Size:?2.1 x 1.8 x 1.2 cm Tumor Location:? Not specified [place] Combined Histologic Scores: ? Tubules:?3 ? Nuclei:?1 ? Mitotic Rate:? 1 (actual count <1/10 HPF with field diameter of 0.54 mm) ? Total:?5 Differentiation:? Well Margins:?Negative (0.25 mm from closest margin, lateral) DCIS:? Not identified % DCIS:?N/A DCIS margins:? N/A LVI:? Not identified Lymph nodes:? 0/4 (positive/total count) ER/DC:?ER positive (>90%); DC positive (40%) ([id number]) Her2/claudette:? 1+/negative (by immunohistochemistry) ([id number]) ?Non-amplified (by in situ hybridization; Her2/Chr17 ratio: 1.43) ([id number]) FINAL PATHOLOGIC DIAGNOSIS: BREAST, LEFT, LATERAL MARGIN, [...] continued improvement in her alkaline phosphatase dropping [id number] presurgery now down to 137. Calcium is 8.7 electrolytes are normal creatinine is 0.71 albumin 3.3 CBC shows a white count of 8.36 hemoglobin 12.8 hematocrit 39.7 and platelet count of 276 Assessment/plan: Violeta is doing well and has the expected improvement in alkaline phosphatase posttreatment of her gallbladder problem. ALP is now returned essentially to normal. Hot flashes are now becoming more of a problem as his weight gain since her surgery. We discussed increasing exercise and dietary issues. Patient is clearly do better if they are more active than weight less as far as breast cancer recurrence rates go. As far as the hot flashes I have no problem with seeing if Celexa is more effective than the Lexapro. It is arranged for 6 months with lab. documented in this encounter Plan of Treatment Not on filedocumented as of this encounter Procedures Procedure Name Priority Date/Time Associated Diagnosis Comme nts LAB SCAN 04/02/2018 12:00 AM Results for this EDT procedure are i n the results section . documented in this encounter Results SCAN DOC: LAB (04/02/2018 12:00 AM EDT) Narrative 04/02/2018 12:00 AM EDT This result has an attachment that is no t available. Ordered by an unspecified provider. Scanning Provider MEDIA MGR SCAN EXT ORDR/RSLT documented in this encounter Visit Diagnoses Diagnosis Malignant neoplasm of upper-outer quadra nt of left breast in female, estrogen receptor positive documented in this encounter Care Teams Site Planner Relationship Specialty Start Date End Date Andrea Cho DO PCP - General Family Medicine 10/12/[address] [place] [address] documented as of this encounter
--- OUTSIDE RECORDS SUMMARY | 2022-05-09 00:59 | XMS_ITS | Encounter Summary ---
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 in [address] [place] [address] female, estrogen [place], [place] RADIATION ONCOL OGY receptor positive, [phone] [place], [place] unspecified site of [phone] breast [phone] (Wo rk) Social History Tobacco Use Types [...] Sign Reading Time Taken Comments Blood Pressure 107/62 12/24/2017 2:50 PM EDT Pulse 72 12/24/2017 2:50 PM EDT Temperature 37 ??C (98.6 ??F) 12/24/2017 2:50 PM EDT Respiratory Rate 16 12/24/2017 2:50 PM EDT Oxygen Saturation 98% 12/24/2017 2:50 PM EDT Inhaled Oxygen Concentration - - Weight 93.4 kg (206 lb) 12/24/2017 2:50 PM EDT Height - - Body Mass Index 35.04 10/12/2017 1:00 PM EST documented in this encounter Progress Notes Jessica Moreira, SPRAY MACHINE TENDER - 12/24/2017 2:30 PM EDT Patient ID: Stefany Edward is a 57 y.o. female with left breast cancer, ILC, gr 2, ER+CA+, Her2 neg, s/p lumpectomy & SNB followed by reexcision, pT2 pN0, stage IIA. She was treated with radiationtherapy for a dose of 52.56 Gy which was completed on 01/26/2017. She was started on hormonal tx following radiation therapy. She is in clinic for scheduled followup and to review her survivor care plan. HPI 56 y/o f who presented abnormal left breast mammogram ?? 08/22/16 needle bxs L breast. [place] [facility] [place], ER+CA+, Her2 RAYRAY neg. ?? 10/08/16 US guided NLOC R breast lumpectomy & SNB. 4 clips placed into cavity medially & laterally; superiorly & inferiorly for radiation purposes. breast ca, L, ILC, gr 2, ER+CA+, Her2 neg, s/p lumpectomy & SNB followed by reexcision, pT2 pN0, stage IIA. ?? [facility] [place]C, gr 2, 24 mm, tumor [...] x 1.2 cm Tumor Location:? Not specified [facility] Combined Histologic Scores: ? Tubules:?3 ? Nuclei:?1 ? Mitotic Rate:? 1 (actual count <1/10 HPF with field diameter of 0.54 mm) ? Total:?5 Differentiation:? Well Margins:?Negative (0.25 mm from closest margin, lateral) DCIS:? Not identified % DCIS:?N/A DCIS margins:? N/A LVI:? Not identified Lymph nodes:? 0/4 (positive/total count) ER/CA:?ER positive (>90%); CA positive (40%) ([id number]) Her2/claudette:? 1+/negative (by immunohistochemistry) ([id number]) ?Non-amplified (by in situ hybridization; Her2/Chr17 ratio: 1.43) ([id number]) FINAL PATHOLOGIC DIAGNOSIS: BREAST, LEFT, LATERAL MARGIN, REEXCISION: - Residual invasive lobular carcinoma (block 9). - Tumor measures 0.3 cm in greatest dimension. - Surgical resection margin negative; invasive tumor present 0.25 mm from new lateral margin. - Extensive reactive and reparative change with multinucleated giant cells, consistent with prior surgery. ? She was seen by Dr. Randhawa of [facility], & Oncotype DX obtained. Score of 15 [...] Surgery Lumpectomy done on 10/08/2016 Axillary Management [place] nodes alone Total Number of Nodes Removed [...] 2.4 cm Grade intermediate ER--estrogen receptor positive CA- progesterone receptor positive HER-2/FISH negative Oncotype Recurrence Score 15 which means a 10% risk of disease recurrence with hormone therapy Endocrine Therapy Recommended for Hormone Sensitive Invasive Tumor Yes -started letrozole 02/05/2017 and switched to Tamoxifen 08/2017 due side effects from letrozole Dates of radiation 12/29/2016 through 01/26/2017 Radiation Sim Vietnamese Protocol Radiation Boost yes Total Dosage of Radiation 52.56 Gy Surveillance 10/26/2017- mammogram--no evidence of malignancy Patient Active Problem List Diagnosis Code ??? Malignant neoplasm of left female breast C50.912 ??? Cancer of left breast, stage 2 C50.912 Past Surgical History: Procedure Laterality Date ??? MASTECTOMY, PARTIAL Left 10/2016 ??? OVARIAN CYST REMOVAL Allergies Allergen Reactions ??? [place] Dermatitis ??? Aspirin Other (See Comments) Severe abdominal pain ??? Black Pepper Dermatitis ??? Blueberry Dermatitis ??? Clams Dermatitis ??? Femara [Letrozole] Other (See Comments) Arthralgias and myalgias ??? Malt Extract Other (See Comments) headache ??? Mushroom Dermatitis ??? [place] Dermatitis ??? Other [Unclassified Drug] Dermatitis Lobster causes severe itching ??? Peanut Dermatitis ??? Pollen Extracts Other (See Comments) rhinorrhea ??? Sesame Dermatitis Medications 12/24/17 1504 Medication Sig Taking? escitalopram (LEXAPRO) 20 mg Tablet Take 20 mg by mouth daily. Yes dextroamphetamine-amphetamine (ADDERALL) 10 mg Tablet Every 12 hours. Yes ranitidine (ZANTAC) 150 mg Tablet Take 150 mg by mouth 2 times daily. Yes tamoxifen (NOLVADEX) 20 mg Tablet Take 1 tablet by mouth daily. Yes omeprazole (PRILOSEC) 20 mg Capsule, [...] needed for Migraine. Reported on 04/09/2017 Yes fish oil-omega-3 fatty acids 1,000 mg Capsule Take 2 g by mouth daily. Reported on 01/26/2017 Yes cyanocobalamin 1,000 mcg Tablet Take 1,000 mcg by mouth daily. Yes cholecalciferol, Vitamin D3, (CHOLECALCIFEROL, VITAMIN D3,) 2,000 unit Capsule Take 1 capsule by mouth daily. Reported on 04/09/2017 Yes Review and update of social history Social Supports: pt's primary support is her Edwin of 9 years. Pt has 2 daughters in [facility] and her has a daughter and a son in [facility] and [facility]. Pt has friends in [facility]. ?? Living Situation/Daily Activities/Transportation: Pt and manage their daily chores and activities. Pt does not have any problems with transportation. ?? 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 She has BCBS for insurance. She did [...] doing well. Time from completion of treatment 11 months Problems at primary site (breast) none Metastatic symptoms: none Pain none Breast tenderness mild Skin changes breast none Lymphedema none Persistent cough none Persistent headaches none ROM restriction none Functional status Independent in ADL and IADL Smoking none Activity/exercise No regular exercise regimen Hormone therapy side effects Tolerating tamoxifen Misc Review of Systems Constitutional: Negative. Negative for activity change, appetite change, fatigue, fever and unexpected weight change. HENT: Negative. Respiratory: Positive for shortness of breath. Negative for cough, chest tightness and wheezing. Shortness of breath with exertion Cardiovascular: Negative. Negative for chest pain and leg swelling. Has mitral valve prolapse caused shortness of breath Gastrointestinal: Negative. Genitourinary: Negative. Musculoskeletal: Negative. Skin: Negative. Neurological: Negative. Hematological: Negative. Psychiatric/Behavioral: Negative. Vitals Office Visit from 12/24/2017 in Radiation Oncology at [facility] Weight 93.4 kg (206 lb) Temp 37 ??C (98.6 ??F) Temp src Oral Heart Rate 72 Heart Rate Source Right Resp 16 BP 107/62 BP Location Right arm Patient Position Sitting SpO2 98 % Objective: Physical Exam Constitutional: She is oriented to person, place, and time. She appears well- developed and well-nourished. No distress. HENT: Head: Normocephalic and atraumatic. Eyes: Conjunctivae and EOM are normal. Left eye exhibits no discharge. No scleral icterus. Neck: Neck supple. Cardiovascular: Normal rate, regular rhythm and normal heart sounds. Pulmonary/Chest: Effort normal and breath sounds normal. No respiratory distress. She has no wheezes. She has no rales. She exhibits no tenderness. Abdominal: Soft. Bowel sounds are normal. She exhibits no distension. There is no tenderness. Musculoskeletal: Normal range of motion. She [...] Fair; ____Poor 10/26/2017- mammogram--no evidence of malignancy Assessment and Plan: Stefany Edward is a 57 y.o. female with left breast cancer, ILC, gr 2, ER+CA+, Her2 neg, s/p lumpectomy & SNB followed by reexcision, pT2 pN0, stage IIA. She was treated with radiation therapy fora dose of 52.56 Gy which was completed on 01/26/2017. She was started on hormonal tx following radiation therapy. She was initially started on letrozole and due to severe side effects switched to tamoxifen which she is tolerating. There is LATANYA. She does have mild left breast lymphedema and was instructed in massage technique to manage this. We reviewed signs and symptoms of late effect of radiation therapy including tissue fibrosis, need to do regular stretching exercises, need to report edema to breast or arm and any persistent symptoms including persistent cough, headache, skeletal pain, skin changes. We discussed the survivor benefitsof regular exercise and weight control. She is to have a repeat mammogram 10/2018 Follow-up for a total of 35 minutes, with 30 minutes of that time spent discussing her current clinical condition, reviewing her Breast Cancer Survivor Care Plan which includes review of her breast cancer history, treatment history, health behaviors to promote wellness, ongoing surveillance, late effects of treatments and symptoms to report as well as planning further management. documented in this encounter Plan of Treatment Not on filedocumented as of this encounter Visit Diagnoses Diagnosis Malignant neoplasm of left breast in fem edd, estrogen receptor positive, unspecified site of breast documented in this encounter Care Teams Stock Layer Relationship Specialty Start Date End Date Andrea Cho DO PCP - General Family Medicine 10/12/[address] [place] [address] documented as of this encounter
--- OUTSIDE RECORDS SUMMARY | 2022-05-09 00:59 | XMS_ITS | Encounter Summary ---
:1960 [place] [address] Care Team Providers Name Role Phone Andrea Cho DO Primary Care Provider Encounter Details Date Type Department Care Team Description 10/26/2017 Hospital Encounter Radiology Library at [facility] [place] [address] DIAGNOSIC RADIOLOGY [phone] [place], [place] [address] (Wo rk) Social History Tobacco Use Types Packs/Day Years Used Date Former Smoker 11 03 Quit: 2006 Smokeless Tobacco: Never Used Alcohol Use Standard Drinks/Week Comments No 0 (1 standard drink = 0.6 oz pure alcoho l) Sex Assigned at Date Recorded Female 07/03/2021 6:34 PM EDT documented as of this encounter Medications at Time of Discharge Medication Sig Dispensed Refills Start Date End Date lisinopril-hydrochlorothi Take 1 tablet by 0 azide mouth daily. (PRINZIDE;ZESTORETIC) Indications: 10-12.5 mg hypertension TabletIndications: hypertension rizatriptan (MAXALT) 10 Take 10 mg by mouth 0 mg Tablet as needed for Migraine. Reported on 04/09/2017 tamoxifen (NOLVADEX) 20 Take 1 tablet by 30 tablet 1 201611/25/2017 mg TabletIndications: mouth daily. Malignant neoplasm of upper-outer quadrant of left breast in female, estrogen receptor positive EMOLLIENT BASE (CREAM Apply topically. 0 12/24/2017 BASE TOP) Jeans Cream. Apply to area of radiation twice a day but no less than 2 hours before a treatment. omeprazole (PRILOSEC) 20 Take 20 mg by mouth 0 02/21/2021 mg Capsule, Delayed daily. Reported on Release(E.C.) 01/20/2017 loratadine (CLARITIN) 10 Take 10 mg by mouth 0 07/04/2021 mg Tablet daily. Reported on 01/13/2017 FLUoxetine (PROZAC) 20 mg Take 80 mg by mouth 0 12/24/2017 TabletIndications: daily. Indications: generalized anxiety Generalized Anxiety disorder Disorder lisdexamfetamine Take 30 mg by mouth 0 12/24/2017 (VYVANSE) 30 mg Capsule 2 times daily (with meals). 30 mg AM, 40 mg PM fish oil-omega-3 fatty Take 2 g by mouth 0 02/03/2019 acids 1,000 mg Capsule daily. Reported on 01/26/2017 cyanocobalamin 1,000 mcg Take 1,000 mcg by 0 01/11/2018 Tablet mouth daily. cholecalciferol, Vitamin Take 1 capsule by 0 01/11/2018 D3, (CHOLECALCIFEROL, mouth daily. VITAMIN D3,) 2,000 unit Reported on 04/09/2017 Capsule documented as of this encounter Plan of Treatment Not on filedocumented as of this encounter Procedures Procedure Name Priority Date/Time Associated Diagnosis Comme nts FILM LIBRARY Routine 10/26/2017 12:00 AM Results for this STORAGE ONLY MAMMO EST procedure are in the results section. documented in this encounter Results Film Library- Storage Only Mammo (10/26/2017 12:00 AM EST) Specimen (Source) Anatomical Location Collection Method / Collectio n Time Received Time / Laterality Volume Narrative [facility] - 10/28/2017 9:20 AM EST This result has an attachment that is no t available. This exam is for storage only and is aut o-finalizing. Holland Bonilla MD [facility] FILM LIBRARY ORDERABLES Performing Organization Address City/State/ZIP Code Phon e Number [facility] [place]IDA [place], [place] documented in this encounter Visit Diagnoses Not on filedocumented in this encounter Care Teams Internet Marketer Relationship Specialty Start Date End Date Andrea Cho DO PCP - General Family Medicine 10/12/[address] [place] [address] documented as of this encounter
--- OUTSIDE RECORDS SUMMARY | 2022-05-09 00:59 | XMS_ITS | Clinical Summary ---
:1960 Author Organization [facility] [place] [address] Care Team Providers Name Role Phone Andrea Cho DO Primary Care Provider Allergies Active Allergy Reactions Severity Noted Date Comments [place] Dermatitis 12/08/2016 Aspirin Other (See Comments) 12/08/2016 Severe abdominal pain Black Pepper Dermatitis 12/08/2016 Blueberry Dermatitis 12/08/2016 Clams Dermatitis 12/08/2016 Letrozole Other (See Comments) 10/12/2017 Arthral gias and myalgias Malt Extract Other (See Comments) 12/08/2016 headach e Mushroom Dermatitis 12/08/2016 [place] Dermatitis 12/08/2016 Unclassified Drug Dermatitis 12/08/2016 Lobster ca uses severe itching Peanut Dermatitis 12/08/2016 Pollen Extracts Other (See Comments) 02/05/2017 rhin orrhea Sesame Dermatitis 12/25/2016 Medications Medication Sig Dispensed Refills Start End Date Status Date lisinopril-hydrochlorot Take 1 tablet by 0 Active hiazide mouth daily. (PRINZIDE;ZESTORETIC) Indications: 10-12.5 mg hypertension TabletIndications: hypertension rizatriptan (MAXALT) 10 Take 10 mg by mouth 0 Active mg Tablet as needed for Migraine. Reported on 04/09/2017 cholecalciferol, Take 2,000 Units by 0 Active Vitamin D3, 2,000 unit mouth daily. Capsule cyanocobalamin, vitamin Take 500 mcg by 0 Active B-12, 500 mcg Tablet mouth daily. Not sure oif dose. Takes 2 tabs daily venlafaxine Take 300 mg by 0 Act zaire (EFFEXOR-XR) 150 mg mouth daily. Capsule, Sust. Release 24 hr FARXIGA 10 mg Tablet Take 10 mg by mouth 0 Active daily. 9 atorvastatin (Lipitor) take 1 tablet by 0 Active 40 mg Tablet mouth once daily 0 Dexmethylphenidate 10 take 1 capsule by 0 Active mg Capsule, Multiphasic mouth every morning 0 Rel.50-50 ferrous sulfate 325 mg take 1 tablet by 0 Active (65 mg iron) Tablet mouth once daily 0 Lantus Solostar U-100 5 Units daily. 0 Active Insulin pen 0 methylphenidate TAKE 1 TABLET BY 0 Active (Ritalin) 5 mg Tablet MOUTH AFTER THE 0 10MG OF FOCALIN WEARS OFF DAILY, MAXIMUM DAILY DOSE 5 MG Victoza 2-Juan Alberto 0.6 inject 0.6 0 A ctive mg/0.1 mL (18 mg/3 mL) milligram 1 Pen Injector subcutaneously daily for 7 days then inject ... (REFER TO PRESCRIPTION NOTES). oxybutynin (Ditropan) 5 Take 2 tablets by 240 tablet 5 02 Active mg TabletIndications: mouth 2 times 1 Hot flashes daily. magnesium 250 mg Tablet Take by mouth. 0 Active Active Problems Problem Noted Date Malignant neoplasm of left female breast 12/08/2016 Cancer of left breast, stage 2 Immunizations Name Administration Dates Next Due Moderna Covid-19 (Pinsetter Mechanic Automatic 100mcg) Vaccine 11/21/2020, 2020 Family History Medical History Relation Comments Cancer Father Bone. Query primary site Lung Cancer Paternal Aunt Lung Cancer Paternal Uncle Relation Status Comments Father Paternal Aunt Paternal Uncle Social History Tobacco Use Types Packs/Day Years Used Date Former Smoker 11 03 Quit: 2006 Smokeless Tobacco: Never Used Alcohol Use Standard Drinks/Week Comments No 0 (1 standard drink = 0.6 oz pure alcoho l) Sex Assigned at Date Recorded Female 07/03/2021 6:34 PM EDT Last Filed Vital Signs Vital Sign Reading Time Taken Comments Blood Pressure 134/69 01/02/2022 1:26 PM EDT Pulse 84 01/02/2022 1:26 PM EDT Temperature 36.4 ??C (97.5 ??F) 01/02/2022 1:26 PM EDT Respiratory Rate 18 01/02/2022 1:26 PM EDT Oxygen Saturation 96% 01/02/2022 1:26 PM EDT Inhaled Oxygen Concentration - - Weight 90.5 kg (199 lb 9.6 oz) 01/02/2022 1:26 PM EDT Height 167.6 cm (5' 6) 01/02/2022 1:26 PM EDT Body Mass Index 32.22 01/02/2022 1:26 PM EDT Plan of Treatment Health Maintenance Due Date Last Done Comments HIV screen 1979 Hepatitis C Screening 1979 Tdap adult 02/07/1980 Tetanus vaccine 02/07/1980 HPV test 1991 PAP Smear 1991 Breast Cancer Share Decision Needed 2001 Diabetes Screening (HgbA1C or Glucose) 2001 Colonoscopy 2006 Breast Cancer screening 2011 Zoster vaccine (1 of 2) 2011 Advance Directive 02/07/2016 Covid-19 Vaccine (3 - Booster for Moderna 04/20/20212020, 10/20/2020 series) Influenza (Flu) vaccine (1 of 1 - 06/05/2022 Influenza standard series) Insurance Payer Benefit Plan / Subscriber ID Effective Dates Phone Addre ss Type Group [facility] [id number] 2019-Selene [id number] [address] [employer] [place] PPO t [address] [place], [place] [address] (Home) [place] [address] Advance Directives Latest Code Status on File Code Status Date Activated Date Inactivated Comments Full Code 12/09/2016 2:04 PM Does patient have capacity to make decision: Yes Care Teams Golf Club Head Former Relationship Specialty Start Date End Date Andrea Cho DO PCP - General Family Medicine 10/12/[address] [place], [place] [id number]
--- OUTSIDE RECORDS SUMMARY | 2022-05-09 00:59 | XMS_ITS | Encounter Summary ---
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
--- OUTSIDE RECORDS SUMMARY | 2022-05-09 00:59 | XMS_ITS | Encounter Summary ---
:1960 Author Organization [facility] Address [address] [place] [address] Care Team Providers Name Role Phone Andrea Cho DO Primary Care Provider Encounter Details Date Type Department Care Team Description 01/02/2022 Office Visit Hematology/Oncology Anai Holcomb MD [place] [facility] [place] [address] of left breast in [place], [place] HEMATOLOGY/ONCOLOG femal e, estrogen [phone] Y DEPT. receptor positive [phone] [place], [place] [address] Social History Tobacco Use Types [...] Mass Index 32.22 01/02/2022 1:26 PM EDT documented in this encounter Progress Notes Shad Holcomb MD - 01/02/2022 1:30 PM EDT Subjective: Patient ID: Stefany Edward is a 61 y.o. female. HPI Left breast cancer 10/21 Mammographically detected Invasive lobular carcinoma, grade 2 ER positive, IN positive, HER-2 negative Partial mastectomy and sentinel node 2.1 x 1.8 cm, node negative Oncotype score 15, low risk, no chemo Complete RT 01/19 Start letrozole 01/19 Changed to tamoxifen due to muscle aches Effexor and oxybutynin added for sweats Self d/c tamoxifen 02/22 d/t cognitive SE Trial arimidex 03/25, self d/c 05/25 The patient returns to the [facility] in follow-up for her breast cancer. She has tried 3 separate hormonal therapy but really was intolerant of all of them. Still following with her primary care doctor for her other medical problems. She has not noted any lumps or bumps. Still getting her mammograms yearly. Current Outpatient Medications: ??? Victoza 2-Juan Alberto [...] DOSE 5 MG, Disp: , Rfl: ??? cholecalciferol, Vitamin D3, 2,000 unit Capsule, Take 2,000 Units by mouth daily., Disp: , Rfl: ??? cyanocobalamin, vitamin B-12, 500 mcg Tablet, Take 500 mcg by [...] Reported on 04/09/2017, Disp: , Rfl: ??? FARXIGA 10 mg Tablet, Take 10 mg by mouth daily., Disp: , Rfl: 0 Review of Systems Constitutional: Positive for diaphoresis. [...] oriented to person, place, and time. BP 134/69 (Patient Position: Sitting) Pulse 84 Temp 36.4 ??C (97.5 ??F) (Temporal) Resp 18 Ht 167.6 cm (5' 6) Wt 90.5 kg (199 lb 9.6 oz) SpO2 96% BMI 32.22 kg/m?? Assessment and Plan: 61-year-old female with stage II left breast cancer which had low risk molecular features. Her tumorwas ER positive. She completed optimal local therapy and has been on/off hormonal therapy for about 4 years. She really did not tolerate hormonal therapy very well at all. She is now 5 years out from her diagnosis with no signs of recurrence. At this point I think she can return to her primary care doctor for routine follow-up. She does not really need anything specific She does not need any specific cancer follow-up other than yearly mammograms at this point. documented in this encounter Plan of Treatment Not on filedocumented as of this encounter Visit Diagnoses Diagnosis Malignant neoplasm of upper-outer quadra nt of left breast in female, estrogen receptor positive documented in this encounter Care Teams Elevated Guard Relationship Specialty Start Date End Date Andrea Cho DO PCP - General Family Medicine 10/12/17 [facility] [place] [address] documented as of this encounter
--- OUTSIDE RECORDS SUMMARY | 2022-05-09 00:59 | XMS_ITS | Encounter Summary ---
:1960 Author Organization [place] [address] Care Team Providers Name Role Phone Andrea Cho DO Primary Care Provider Encounter Details Date Type Department Care Team Description 03/13/2020 Telephone Dermatology at [facility] Ashley Carmona MD [address] [place] [address] [facility] [phone] [place], [place] [address] (Wo rk) Social History Tobacco Use Types Packs/Day Years Used Date Former Smoker 11 03 Quit: 2006 Smokeless Tobacco: Never Used Alcohol Use Standard Drinks/Week Comments No 0 (1 standard drink = 0.6 oz pure alcoho l) Sex Assigned at Date Recorded Female 07/03/2021 6:34 PM EDT documented as of this encounter Miscellaneous Notes Telephone Encounter - Mirtha George - 03/13/2020 12:02 PM EDT I contacted patient today to reschedule her visit on 03/16 due to a change in our schedule. I was unable to speak w/ anyone when I called, but I was able to leave [phone] for call back. documented in this encounter Plan of Treatment Not on filedocumented as of this encounter Visit Diagnoses Not on filedocumented in this encounter Care Teams Odd Job Worker Relationship Specialty Start Date End Date Andrea Cho DO PCP - General Family Medicine 10/12/17 [address] [place] [address] documented as of this encounter
--- OUTSIDE RECORDS SUMMARY | 2022-05-09 00:59 | XMS_ITS | Encounter Summary ---
:1960 Author Organization [facility] [place] [address] Care Team Providers Name Role Phone Unavailable Primary Care Provider Unavailable Encounter Details Date Type Department Care Team Description 03/03/2017 Notes Only Radiation Oncology at Yenny Lee RN [address] [phone] Social History Tobacco Use Types Packs/Day Years Used Date Former Smoker 11 03 Quit: 2006 Alcohol Use Standard Drinks/Week Comments No 0 (1 standard drink = 0.6 oz pure alcoho l) Sex Assigned at Date Recorded Female 07/03/2021 6:34 PM EDT documented as of this encounter Progress Notes Yenny Lee RN - 03/03/2017 11:24 AM EDT Patient stopped in at clinic today. She has a question if it is okay for her to start using deodorant yet since it has been more than a month since she ended her xrt. She also wanted to report that she experiences shortness of breath going up stairs/hill to her housewhich is worse since xrt. Denies any other respiratory changes including cough, sputum or dyspnea doing other usual ADL's. She also is feeling overall out of shape since her treatments. Dr. Hardy notified of the above shortness of breath, question regarding using deodorant. Dr. Hardy responded to tell patient that it is ok to use deodorant and that she is to contact pcp if worsening shortness of breath otherwise she will evaluate her during end of treatment visit scheduled for 03/30/17. I instructed patient regarding Dr. Hardy' recommendations as above. She verbalized good understanding of them and is thankful that she can start to use her regular deodorant again. She is agreeable tocontacting her PCP for any worsening shortness of breath. documented in this encounter Plan of Treatment Not on filedocumented as of this encounter Visit Diagnoses Not on filedocumented in this encounter
--- OUTSIDE RECORDS SUMMARY | 2022-05-09 00:59 | XMS_ITS | Encounter Summary ---
:1960 Author Organization [facility] [place] [address] Care Team Providers Name Role Phone Andrea Cho DO Primary Care Provider Reason for Visit Reason Comments Breast Cancer Encounter Details Date Type Department Care Team Description 02/21/2021 TH Visit Radiation Oncology at Margaret Moreira APRN Hot flashes (TeleHealth) [address] [place] [id number] [phone] (Wo rk) Social History Tobacco Use Types Packs/Day Years Used Date Former Smoker 11 03 Quit: 2006 Smokeless Tobacco: Never Used Alcohol Use Standard Drinks/Week Comments No 0 (1 standard drink = 0.6 oz pure alcoho l) Sex Assigned at Date Recorded Female 07/03/2021 6:34 PM EDT documented as of this encounter Progress Notes Jessica Moreira APRN - 02/21/2021 9:00 AM EDT Telephone/TeleHealth Encounter Telephone encounter due to [employer] [facility] Emergency. Patient verbally consented to conduct this clinical encounter by telephone. She acknowledges that insurance may be billed for the care provided similar to an in person visit. Patient is at the following location at the time of the phone call. Home: XXX Patient Identification: Reason for contact: Surveillance post treatment for BREAST CANCER Time since completion of XRT: FOUR YEARS Stefany Edward is a 58 y.o. female with left breast cancer, ILC, gr 2, ER+GA+, Her2 neg, s/p lumpectomy &??SNB followed by reexcision, pT2 pN0, stage IIA. She was treated with radiation therapy for a dose of 52.56 Gy which was completed on 01/26/2017. She was started on hormonal tx following radiation therapy. HPI: ? Breast Cancer Notes / Treatment summary reviewed with patient and copy given to her and copy sent toP 12/24/2017 BREAST CANCER NOTES 12/24/2017 Method of Cancer Detection Mammogram detected mass/breast change left breast Date of Diagnostic Biopsy 08/22/2016 Local Surgery Lumpectomy done on 10/08/2016 Axillary Management [place] nodes alone Total Number of Nodes Removed [...] lymph node involvement M0= no distant spread ?? Size of Primary Malignancy 2.4 cm Grade intermediate ER--estrogen receptor positive GA- progesterone receptor positive HER-2/FISH negative Oncotype Recurrence Score 15 which means a 10% risk of disease recurrence with hormone therapy Endocrine Therapy Recommended for Hormone Sensitive Invasive Tumor Yes -started letrozole 02/05/2017 and switched to Tamoxifen 08/2017 due side effects from letrozole Dates of radiation 12/29/2016 through 01/26/2017 Radiation Sim Stateless Protocol Radiation Boost yes Total Dosage of Radiation 52.56 Gy Surveillance 10/26/2017- mammogram--no evidence of malignancy 2-08/2019- mammogram--no evidence of malignancy 02/2021- Mammogram-- no evidence of malignancy Treatment side effects Tamoxifen induced severe hot flashes ? Patient Active Problem List Diagnosis Code ??? Malignant neoplasm of left female breast C50.912 ??? Cancer of left breast, stage 2 C50.912 Past Surgical History: Procedure Laterality Date ??? MASTECTOMY, PARTIAL Left 10/2016 ??? OVARIAN CYST REMOVAL Allergies Allergen Reactions ??? [place] Dermatitis ??? Aspirin Other (See Comments) Severe abdominal pain ??? Black Pepper Dermatitis ??? Blueberry Dermatitis ??? Clams Dermatitis ??? Femara [Letrozole] Other (See Comments) Arthralgias and myalgias ??? Malt Extract Other (See Comments) headache ??? Mushroom Dermatitis ??? [place] Dermatitis ??? Other [Unclassified Drug] Dermatitis Lobster causes severe itching ??? Peanut Dermatitis ??? Pollen Extracts Other (See Comments) rhinorrhea ??? Sesame Dermatitis Medications 02/21/21 0901 Medication Sig Taking? oxybutynin (Ditropan) 5 mg Tablet Take 2 tablets by mouth 2 times daily. Yes atorvastatin (Lipitor) 40 mg Tablet take 1 tablet by mouth once daily Yes Dexmethylphenidate 10 mg Capsule, Multiphasic Rel.50-50 take 1 capsule by mouth every morning Yes ferrous sulfate 325 mg (65 mg iron) Tablet take 1 tablet by mouth once daily Yes Lantus Solostar U-100 Insulin pen 5 Units daily. Yes methylphenidate (Ritalin) 5 mg Tablet TAKE 1 TABLET BY MOUTH AFTER THE 10MG OF FOCALIN WEARS OFF DAILY, MAXIMUM DAILY DOSE 5 MG Yes FARXIGA 10 mg Tablet Take 10 mg by mouth daily. Yes cholecalciferol, Vitamin D3, 2,000 unit Capsule Take 2,000 Units by mouth daily. Yes cyanocobalamin (VITAMIN B-12) 500 mcg Tablet Take 500 mcg by mouth daily. Not sure oif dose. Takes 2tabs daily Yes venlafaxine (EFFEXOR-XR) 150 mg Capsule, Sust. Release 24 hr Take 300 mg by mouth daily. Yes loratadine (CLARITIN) 10 mg Tablet Take 10 mg by mouth daily. Reported on 01/13/2017 Yes lisinopril-hydrochlorothiazide (PRINZIDE;ZESTORETIC) 10-12.5 mg Tablet Take 1 tablet by mouth daily.Indications: hypertension Yes rizatriptan (MAXALT) 10 mg Tablet Take 10 mg by mouth as needed for Migraine. Reported on 04/09/2017 Yes Victoza 2-Juan Alberto 0.6 mg/0.1 mL (18 mg/3 mL) Pen Injector inject 0.6 milligram subcutaneously daily for 7 days then inject ... (REFER TO PRESCRIPTION NOTES). tamoxifen (NOLVADEX) 20 mg Tablet Take 1 tablet by mouth daily. Social History Tobacco Use ??? Smoking status: Former Smoker Packs/day: 1.00 Years: 30.00 Pack years: 30.00 Quit date: 2006 Years since quittin.3 ??? Smokeless tobacco: Never Used Vaping Use ??? Vaping Use: Never used Substance Use Topics ??? Alcohol use: No ??? Drug use: No Review and update of social history Social Supports: pt's primary support is her Edwin. ??Pt has 2 daughters in [place] [facility] and her has a daughter and a son in [place] [facility] and [facility]. ??Pt has friends in [place]. Living Situation/Daily Activities/Transportation: Pt and manage their daily chores and activities. ??Pt does not have any problems with transportation. 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 ??There are currently 8 residents. She did not indicate any concerns re finances or insurance. ??Advance Directives: Pt has not completed her advance directive but does have the information at home. ? Interim History: I reviewed patient allergies, medications, problem list, Previous medical history, Previous surgicalhistory, family history and social history. Change in history: Time from completion of treatment 4 years Problems at primary site (breast) none Metastatic symptoms: none Pain none Breast tenderness none Skin changes breast none Lymphedema none Persistent cough none Persistent headaches none ROM restriction Some occ chest wall tightness--patient encouraged to do stretching exercises Functional status Independent in ADL and IADL Smoking none Activity/exercise Walking --5,000 to 6,000 steps a day. No other formal exercise Hormone therapy side effects Hot flashes are tolerable with the use of the oxybutinin. She needs a refill. She is concerned about the late and mcfp effects of BRANCH and wants to discuss this with Dr Holcomb Her primary concern is cognitive issues in particular Misc ??patient has intentionally lost weight and she is now 185 lbs. Diet modification and Victoza have helped achieve the weight loss. ROS: HAD MAMMO TWO WEEKS AGO AND NEGATIVE Constitutional: Positive for diaphoresis. Negative for activity change, appetite change, fatigue, fever and unexpected weight change. Current weight is 185 lbs HENT: Negative. Respiratory: Positive for shortness of breath. Negative for cough, + for mild chest tightness. No wheezing. Shortness of breath with exertion Cardiovascular: Negative. Negative for chest pain and leg swelling Has mitral valve prolapse --which leads to shortness of breath especially when active . Has received both covid vaccines Gastrointestinal: Negative. Endocrine: Has DM and most recent A1c was 6.4 Genitourinary: Negative. Mild stress incontinence Musculoskeletal: Negative. Skin: Negative. Neurological: patient concerned that BRANCH is causing some cognitive changes Hematological: Negative. Psychiatric/Behavioral: Negative.Patient reports sleeping well KPS 100 Imaging: per patient recent mammogram two weeks ago negative for recurrence Assessment/ Plan Stefany Edward is a 61 y.o. female with left breast cancer, ILC, gr 2, ER+GA+, Her2 neg, s/p lumpectomy &??SNB followed by reexcision, pT2 pN0, stage IIA. She was treated with radiation therapy for a dose of 52.56 Gy which was completed on 01/26/2017. She was started on hormonal tx following radiation therapy. She was initially started on letrozole and due to severe side effects switched to tamoxi fen. Her previous severe hot flashes are now tolerable since starting oxybutynin. she needs a new prescription. Hot flashes have been distressing--[facility] published a study by Dr Ramon Paz 09/2018 where they studied the use of oxybutynin for hot flashes and found that in the 150 women that were studied that the drug was well tolerated at a dose of 5 mg twice a day and that this dose of medication reduced hot flashes by 80%. Stefany is reporting that she is concerned about cognitive changes related to the BRANCH she is taking. This is especially problematic in the am. She has done reading on this issue and would like to speak with Dr Holcomb about alternatives to BRANCH She is to have a repeat mammogram 02/2022 We will otherwise see patient again in one year. She will be seen by medical oncology in the interim. ?? I provided care to Mrs Edward via telephone encounter and spent 30 minutes preparing for the virtualvisit, by reviewing previous care as documented in patient's EMR, in direct discussion with the patient over the phone and afterward coordinating and documenting in the medical record Mrs Edward had the opportunity to ask questions and I answered to best of my knowledge. She agreed to call radiation oncology in between visits with questions and concerns. documented in this encounter Plan of Treatment Not on filedocumented as of this encounter Visit Diagnoses Diagnosis Hot flashes Symptomatic menopausal or female climact jgadish states documented in this encounter Care Teams Pond Worker Relationship Specialty Start Date End Date Andrea Cho DO PCP - General Family Medicine 10/12/[address] [place] [address] documented as of this encounter
--- OUTSIDE RECORDS SUMMARY | 2022-05-09 00:59 | XMS_ITS | Encounter Summary ---
:1960 Author Organization [facility] [place] [address] Care Team Providers Name Role Phone Andrea Cho DO Primary Care Provider Reason for Visit Reason Comments Breast Cancer Encounter Details Date Type Department Care Team Description 10/12/2017 Office Visit Hematology/Oncology Walter Randhawa Mal ignant neoplasm of at [facility] upper-outer quadrant [address] [facility] of left breast in [place], [place] female, estrogen [id number] receptor positive [phone] (Wo rk) Social History Tobacco Use Types Packs/Day Years Used Date Former Smoker 1 Quit: 2006 Smokeless Tobacco: Never Used Alcohol Use Standard Drinks/Week Comments No 0 (1 standard drink = 0.6 oz pure alcoho l) Sex Assigned at Date Recorded Female 07/03/2021 6:34 PM EDT documented as of this encounter Last Filed Vital Signs Vital Sign Reading Time Taken Comments Blood Pressure 129/66 10/12/2017 1:00 PM EST Pulse 76 10/12/2017 1:00 PM EST Temperature 36.6 ??C (97.9 ??F) 10/12/2017 1:00 PM EST Respiratory Rate 16 10/12/2017 1:00 PM EST Oxygen Saturation 100% 10/12/2017 1:00 PM EST Inhaled Oxygen Concentration - - Weight 92.5 kg (204 lb) 10/12/2017 1:00 PM EST Height 163.3 cm (5' 4.29) 10/12/2017 1:00 PM EST COPIE D Body Mass Index 34.7 10/12/2017 1:00 PM EST documented in this encounter Progress Notes Walter Randhawa MD - 10/12/2017 1:00 PM EST Diagnosis: Stage IIa adenocarcinoma left breast status post lumpectomy. The tumor was 2.1 x 1.8 cm ER/MA positive HER-2/claudette negative sentinel node negative. Status post lumpectomy and lumpectomy revision The patient's Oncotype DX was quite low at 15 representing a 10% chance of recurrence on estrogen blockers. SUBJECTIVE: Stefany comes in today after switching from aromatase inhibitor to tamoxifen because of muscle aches and pains and joint discomfort. She notes that since going off the aromatase inhibitor, her joint and muscle problems have completely resolved and she is tolerating the tamoxifen well without any difficulty. She did get scheduled to have her gallbladder out in the next couple weeks and also needs to have her mammograms done. She did not get her lab as planned and that is just as well since we were hoping to have her gallbladder before rechecking things. Otherwise though, things are going well. Past Medical History: Diagnosis Date ??? ADHD (attention deficit hyperactivity disorder) ??? Arthritis ??? Cancer of left breast, stage 2 ??? Depression ??? HBP (high blood pressure) ??? Migraine ??? Ovarian cyst Past Surgical History: Procedure Laterality Date ??? MASTECTOMY, PARTIAL Left 10/2016 ??? OVARIAN CYST REMOVAL Allergies Allergen Reactions ??? [place] Dermatitis ??? Aspirin Other (See Comments) Severe abdominal pain ??? Black Pepper Dermatitis ??? Blueberry Dermatitis ??? Clams Dermatitis ??? Malt Extract Other (See Comments) headache ??? Mushroom Dermatitis ??? [place] Dermatitis ??? 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 Name:? STEFANY ZHENG? Accession #:? [id number]? :? 1960 (Age: 56)?F? Collect Date:? 11/10/2016? Location:? [facility]? Receive Date:? 11/10/2016? Provider: LALA-ANG DAWSON MD Copy to: YASMEEN CARDOZO NP ? Final Pathologic Diagnosis: Updated: 11/13/2016 SUMMARY DIAGNOSIS FOR MALIGNANT BREAST TUMORS AJCC (7th edition): pT2 pN0(sn) Laterality:?Left? Specimen:?Wire localization excisional biopsy; reexcision of lateral margin Tumor Type:?Invasive lobular Tumor Size:?2.1 x 1.8 x 1.2 cm Tumor Location:? Not specified [facility] Combined Histologic Scores: ? Tubules:?3 ? Nuclei:?1 ? Mitotic Rate:? 1 (actual count <1/10 HPF with field diameter of 0.54 mm) ? Total:?5 Differentiation:? Well Margins:?Negative (0.25 mm from closest margin, lateral) DCIS:? Not identified % DCIS:?N/A DCIS margins:? N/A LVI:? Not identified Lymph nodes:? 0/4 (positive/total count) ER/MA:?ER positive (>90%); MA positive (40%) ([id number]) Her2/claudette:? 1+/negative (by immunohistochemistry) ([id number]) ?Non-amplified (by in situ hybridization; Her2/Chr17 ratio: 1.43) ([id number]) FINAL PATHOLOGIC DIAGNOSIS: BREAST, LEFT, LATERAL MARGIN, REEXCISION: - Residual invasive lobular carcinoma (block 9). - Tumor measures 0.3 cm in greatest dimension. - Surgical resection margin negative; invasive tumor present 0.25 mm from new lateral margin. - Extensive reactive and reparative change with multinucleated giant cells, consistent with prior surgery ASSESSMENT/PLAN: Stefany is tolerating the switch to tamoxifen quite well. We will go ahead and continue her on 20 mg daily and plan on seeing her back in 3 months' time with a recheck which will be postcholecystectomy. Her alkaline phosphatase should return to normal by then. We will go ahead and get her mammograms ordered here locally and she will call if there are issues or problems in the interim. documented in this encounter Plan of Treatment Not on filedocumented as of this encounter Visit Diagnoses Diagnosis Malignant neoplasm of upper-outer quadra nt of left breast in female, estrogen receptor positive documented in this encounter Care Teams Tentering Machine Feeder Relationship Specialty Start Date End Date Andrea Cho DO PCP - General Family Medicine 10/12/17 [address] [place] [address] documented as of this encounter
--- OUTSIDE RECORDS SUMMARY | 2022-05-09 00:59 | XMS_ITS | Encounter Summary ---
:1960 Author Organization [facility] Address [address] [place] [address] Care Team Providers Name Role Phone Andrea Cho DO Primary Care Provider Encounter Details Date Type Department Care Team Description 03/28/2021 Office Visit Hematology/Oncology Anai Holcomb MD [facility] [address] HEMATOLOGY/[place] [address] Malignant neoplasm of at [facility] Lissette Titpon AGRONOMY MANAGER [address] [place] [address] upper-outer quadrant [address] of left breast in [place], [place] female, adelaide zhou [id number] receptor positive [phone] Social History Tobacco Use Types Packs/Day Years Used Date Former Smoker 11 03 Quit: 2006 Smokeless Tobacco: Never Used Alcohol Use Standard Drinks/Week Comments No 0 (1 standard drink = 0.6 oz pure alcoho l) Sex Assigned at Date Recorded Female 07/03/2021 6:34 PM EDT documented as of this encounter Last Filed Vital Signs Vital Sign Reading Time Taken Comments Blood Pressure 127/52 03/28/2021 11:39 AM EDT Pulse 86 03/28/2021 11:39 AM EDT Temperature 36.5 ??C (97.7 ??F) 03/28/2021 11:39 AM EDT Respiratory Rate 16 03/28/2021 11:39 AM EDT Oxygen Saturation 100% 03/28/2021 11:39 AM EDT Inhaled Oxygen Concentration - - Weight 82.7 kg (182 lb 6.4 oz) 03/28/2021 11:39 AM EDT Height 162.6 cm (5' 4.02) 03/28/2021 11:39 AM EDT Body Mass Index 31.29 03/28/2021 11:39 AM EDT documented in this encounter Progress Notes Shad Holcomb MD - 03/28/2021 11:30 AM EDT Subjective: Patient ID: Stefany Edward is a 61 y.o. female. HPI Left breast cancer 10/21 Mammographically detected Invasive lobular carcinoma, grade 2 ER positive, ID positive, HER-2 negative Partial mastectomy and sentinel node 2.1 x 1.8 cm, node negative Oncotype score 15, low risk, no chemo Complete RT 01/19 Start letrozole 01/19 Changed to tamoxifen due to muscle aches Effexor and oxybutynin added for sweats Self d/c tamoxifen 02/22 d/t cognitive SE Trial arimidex 03/25 The patient returns to the [facility] to discuss her hormonal therapy. She self discontinued tamoxifen about a month ago because she felt she was having cognitive side effects from it. Overthe last month she is been feeling better. Energy has improved as well. She had several questions had several questions about alternative treatments that she could take. Wereviewed her history. She did get muscle cramps on letrozole and then was switched to tamoxifen backin 2016. She has not tried Arimidex. Current Outpatient Medications: ??? Victoza 2-Juan Alberto [...] mouth every morning, Disp: , Rfl: ??? Lantus Solostar U-100 [...] Take 1 tablet by mouth daily., Disp: 30 tablet, Rfl: 11 ??? ferrous sulfate 325 mg (65 mg iron) Tablet, take 1 tablet by mouth once daily, Disp: , Rfl: ??? loratadine (CLARITIN) 10 mg Tablet, Take 10 mg by mouth daily. Reported on 01/13/2017, Disp: , Rfl: Review of Systems Constitutional: [...] oriented to person, place, and time. BP 127/52 (Patient Position: Sitting) Pulse 86 Temp 36.5 ??C (97.7 ??F) (Temporal) Resp 16 Ht 162.6 cm (5' 4.02) Wt 82.7 kg (182 lb 6.4 oz) SpO2 100% BMI 31.29 kg/m?? Assessment and Plan: 60-year-old female with stage II left breast cancer which had low risk molecular features. Her tumorwas ER positive. She completed optimal local therapy and has been on hormonal therapy for about 4 years. She still has about a 6 to 10% risk of recurrence over the next 6 years and would probably benefit from ongoing hormonal therapy. We discussed options including a trial of Arimidex versus Aromasin. Based on cumulative data I think I would rather try Arimidex first if she does not get muscle aches try to continue that through year 7-10. She was willing to try that. I sent a prescription in for her. Plan to see her back in a couple of months to see how she is tolerating it. If she does not tolerateit she will discontinue and let us know and we will try Aromasin. documented in this encounter Plan of Treatment Not on filedocumented as of this encounter Visit Diagnoses Diagnosis Malignant neoplasm of upper-outer quadra nt of left breast in female, estrogen receptor positive documented in this encounter Care Teams Communications Technician Relationship Specialty Start Date End Date Andrea Cho DO PCP - General Family Medicine 10/12/[address] [place] [address] documented as of this encounter
--- OUTSIDE RECORDS SUMMARY | 2022-05-09 01:00 | XMS_ITS | Encounter Summary ---
:1960 Author Organization [facility] Address [address] [place] [address] Care Team Providers Name Role Phone Unavailable Primary Care Provider Unavailable Encounter Details Date Type Department Care Team Description 12/29/2016 Notes Only Radiation Oncology at ErikYaquelin valdez, [facility] OFFICE OF CARE [address] [place] [address] [phone] Social History Tobacco Use Types Packs/Day Years Used Date Former Smoker 1 30 Quit: 2006 Alcohol Use Standard Drinks/Week Comments No 0 (1 standard drink = 0.6 oz pure alcoho l) Sex Assigned at Date Recorded Female 07/03/2021 6:34 PM EDT documented as of this encounter Progress Notes Yaquelin Thompson MSW - 12/29/2016 11:59 PM EDT Reason for Referral: Brief assessment of social and emotional needs. Met with pt and after new start RT on 12-29-16. Social Supports: pt's primary support is her Edwin of 9 years. Pt has 2 daughters in [place] [facility] [place] [facility] and her has a daughter and a son in [place] and [facility]. Pt has friends in [place]. Living Situation/Daily Activities/Transportation: Pt and manage their daily chores and activities. Pt does not expect any problems with transportation. 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 She has BCBS for insurance. She did not indicate any concerns re finances or insurance. Advance Directives: Pt has not completed her advance directive but does have the information at home. Utilization of Community Resources: None at this time. Adjustment to Illness/Mental Health Issues: Pt indicated she is coping as well as she can. They are new in their community so she relies on the contact/support from friends back in [place] and [place]. She keeps busy with work. She plans on attending the Look Good Feel Better program here. Identified Needs: Pt would like to speak to Alisha Christianson Wireless Communications Engineer and sent Alisha a message re this. Referrals: Wireless Communications Engineer Plan: Informed pt and re my availability and will follow for support and resources. documented in this encounter Plan of Treatment Not on filedocumented as of this encounter Visit Diagnoses Not on filedocumented in this encounter
--- OUTSIDE RECORDS SUMMARY | 2022-05-09 01:00 | XMS_ITS | Encounter Summary ---
:1960 Author Organization [facility] [place] [address] Care Team Providers Name Role Phone Unavailable Primary Care Provider Unavailable Reason for Visit Reason Onset Date Comments Medical Care Coordination 01/19/2017 Encounter Details Date Type Department Care Team Description 01/19/2017 Telephone Radiation Oncology at Yenny Lee M [facility] RN Coordination [address] [place] [phone] Social History Tobacco Use Types Packs/Day Years Used Date Former Smoker 11 03 Quit: 2006 Alcohol Use Standard Drinks/Week Comments No 0 (1 standard drink = 0.6 oz pure alcoho l) Sex Assigned at Date Recorded Female 07/03/2021 6:34 PM EDT documented as of this encounter Miscellaneous Notes Telephone Encounter - Yenny Lee RN - 01/19/2017 4:33 PM EDT Telephone call from Sandi Jaramillo at [facility] stating that Violeta is there now needing dentalfillings and that Dr. Jeter is asking if it is okay to do fillings as patient is receiving xrt. I discussed this with Dr. Hardy who states that it is fine for Stefany to have dental fillings done.I updated Dr. Jeter via Sandi. documented in this encounter Plan of Treatment Not on filedocumented as of this encounter Visit Diagnoses Not on filedocumented in this encounter
--- OUTSIDE RECORDS SUMMARY | 2022-05-09 01:00 | XMS_ITS | Encounter Summary ---
:1960 Author Organization [facility] [address] Care Team Providers Name Role Phone Donald Bajwa MD Primary Care Provider Encounter Details Date Type Department Care Team Description 11/04/2016 External Results Medical Records Provider, [place] [phone] Social History Tobacco Use Types Packs/Day Years Used Date Never Assessed Sex Assigned at Date Recorded Female 07/03/2021 6:34 PM EDT documented as of this encounter Plan of Treatment Not on filedocumented as of this encounter Procedures Procedure Name Priority Date/Time Associated Diagnosis Comme nts SURGICAL PATHOLOGY Routine 11/04/2016 Results f or this SCAN procedure are i n the results section . documented in this encounter Results Scan Doc: Surgical Pathology (11/04/2016) Narrative This result has an attachment that is no t available. Janet Matthew MD MEDIA MGR SCAN EXT ORDR/RSLT documented in this encounter Visit Diagnoses Not on filedocumented in this encounter Care Teams Policy Value Calculator Relationship Specialty Start Date End Date Donald Bajwa MD PCP - General Emergency Medicine 10/31/16 12/07/16 documented as of this encounter
--- OUTSIDE RECORDS SUMMARY | 2022-05-09 01:00 | XMS_ITS | Encounter Summary ---
:1960 Author Organization [facility] [place] [address] Care Team Providers Name Role Phone Unavailable Primary Care Provider Unavailable Reason for Visit Reason Comments Breast Cancer Consultation (Urgent) - Specialty Diagnoses / Procedures Referred By Contact Refer red To Contact Hematology and Oncology Diagnoses Lobular CA of left breast Erica Dawson Hem Onc Office Ruslan Beasley MD [address] [place] [address] [address] [place] [id number] Referral ID Status Reason Start Date Expiration Date Visits V isits Requested Authorized [id number] Consult, Test 10/31/2016 10/31/2017 [facility] PCP Updated and/or Approved Encounter Details Date Type Department Care Team Description 02/05/2017 Office Visit Hematology/Oncology Walter Randhawa, Mal ignant neoplasm of at [facility] upper-outer quadrant [address] [place] [address] [place] [phone] (Wo rk) Social History Tobacco Use Types Packs/Day Years Used Date Former Smoker 1 30 Quit: 2006 Alcohol Use Standard Drinks/Week Comments No 0 (1 standard drink = 0.6 oz pure alcoho l) Sex Assigned at Date Recorded Female 07/03/2021 6:34 PM EDT documented as of this encounter Last Filed Vital Signs Vital Sign Reading Time Taken Comments Blood Pressure 122/51 02/05/2017 2:15 PM EDT Pulse 86 02/05/2017 2:15 PM EDT Temperature 36.7 ??C (98.1 ??F) 02/05/2017 2:15 PM EDT Respiratory Rate 16 02/05/2017 2:15 PM EDT Oxygen Saturation 99% 02/05/2017 2:15 PM EDT Inhaled Oxygen Concentration - - Weight 87.1 kg (192 lb) 02/05/2017 2:15 PM EDT Height 163.3 cm (5' 4.29) 02/05/2017 2:15 PM EDT karlee ddoson Body Mass Index 32.66 02/05/2017 2:15 PM EDT documented in this encounter Progress Notes Walter Randhawa MD - 02/05/2017 2:00 PM EDT Diagnosis: Stage IIa adenocarcinoma left breast status post lumpectomy. The tumor was 2.1 x 1.8 cm ER/IL positive HER-2/claudette negative sentinel node negative. Status post lumpectomy and lumpectomy revision The patient's Oncotype DX was quite low at 15 representing a 10% chance of recurrence on estrogen blockers. SUBJECTIVE: Stefany comes in today to consider starting Femara in the adjuvant treatment of her low-risk breast cancer. She has finished her radiation therapy and is really doing well in that regard. We went over risks and side effects of the aromatase inhibitors, as well as the mechanism of action for estrogen blockers, such as tamoxifen. Recommendations are made to consider an aromatase inhibitor for 15 years to additionally reduce the risk of new breast cancers down the road. I went over the risks and side effects of the medication, and she does wish to proceed with treatment. Past Medical History: Diagnosis Date ??? ADHD (attention deficit hyperactivity disorder) ??? Arthritis ??? Cancer of left breast, stage 2 ??? Depression ??? HBP (high blood pressure) ??? Migraine ??? Ovarian cyst Past Surgical History: Procedure Laterality Date ??? MASTECTOMY, PARTIAL Left 10/2016 ??? OVARIAN CYST REMOVAL Allergies Allergen Reactions ??? [place] Dermatitis ??? Aspirin Other (See Comments) Severe abdominal pain ??? Black Pepper Dermatitis ??? Blueberry Dermatitis ??? Clams Dermatitis ??? Malt Extract Other (See Comments) headache ??? Mushroom Dermatitis ??? [place] Dermatitis ??? Other [Unclassified Drug] Dermatitis Lobster causes severe itching ??? Peanut Dermatitis ??? Sesame Dermatitis Medications 12/08/16 1108 Medication [...] unformatted reports. Name:? STEFANY ZHENG? Accession #:? [id number]? :? 1960 (Age: 56)?F? Collect Date:? 11/10/2016? Location:? [facility]? Receive Date:? 11/10/2016? Provider: RUSLAN DAWSON MD Copy to: YASMEEN CARDOZO NP ? Final Pathologic Diagnosis: Updated: 11/13/2016 SUMMARY DIAGNOSIS FOR MALIGNANT BREAST TUMORS AJCC (7th edition): pT2 pN0(sn) Laterality:?Left? Specimen:?Wire localization excisional biopsy; reexcision of lateral margin Tumor Type:?Invasive lobular Tumor Size:?2.1 x 1.8 x 1.2 cm Tumor Location:? Not specified Jaret Combined Histologic Scores: ? Tubules:?3 ? Nuclei:?1 ? Mitotic Rate:? 1 (actual count <1/10 HPF with field diameter of 0.54 mm) ? Total:?5 Differentiation:? Well Margins:?Negative (0.25 mm from closest margin, lateral) DCIS:? Not identified % DCIS:?N/A DCIS margins:? N/A LVI:? Not identified Lymph nodes:? 0/4 (positive/total count) ER/IL:?ER positive (>90%); IL positive (40%) ([id number]) Her2/claudette:? 1+/negative (by immunohistochemistry) ([id number]) ?Non-amplified (by in situ hybridization; Her2/Chr17 ratio: 1.43) ([id number]) FINAL PATHOLOGIC DIAGNOSIS: BREAST, LEFT, LATERAL MARGIN, REEXCISION: - Residual invasive lobular carcinoma (block 9). - Tumor measures 0.3 cm in greatest dimension. - Surgical resection margin negative; invasive tumor present 0.25 mm from new lateral margin. - Extensive reactive and reparative change with multinucleated giant cells, consistent with prior surgery ASSESSMENT AND PLAN: Stefany has a low-risk breast cancer but clearly would benefit by taking an aromatase inhibitor. It will cut her risk of recurrence in half, but fortunately she has a low risk of recurrence. All that being said, will start her on Femara 2.5 mg daily. We will see her back in a month and see how she is doing with the medication and check labs at that time. We also talked about long-term followup with breast cancer. I would like to check lab on an every 6-month basis and she will need yearly mammograms. She has a good understanding of that as well. documented in this encounter Plan of Treatment Not on filedocumented as of this encounter Procedures Procedure Name Priority Date/Time Associated Diagnosis Comme nts LAB SCAN 03/03/2017 12:00 AM Results for this EDT procedure are i n the results section . documented in this encounter Results SCAN DOC: LAB (03/03/2017 12:00 AM EDT) Narrative 03/03/2017 12:00 AM EDT This result has an attachment that is no t available. Ordered by an unspecified provider. Scanning Provider MEDIA MGR SCAN EXT ORDR/RSLT documented in this encounter Visit Diagnoses Diagnosis Malignant neoplasm of upper-outer quadra nt of left female breast Malignant neoplasm of upper-outer quadra nt of female breast documented in this encounter
--- OUTSIDE RECORDS SUMMARY | 2022-05-09 01:00 | XMS_ITS | Encounter Summary ---
:1960 Author Organization [facility] [place] [address] Care Team Providers Name Role Phone Unavailable Primary Care Provider Unavailable Encounter Details Date Type Department Care Team Description 01/22/2017 Unscheduled Encounter Radiation Oncology Lefty, Malignant neoplasm at [facility] Traci Sun RN of left female [address] [place] [address] Drive breast, unspecified [place] [phone] Social History Tobacco Use Types Packs/Day Years Used Date Former Smoker 11 03 Quit: 2006 Alcohol Use Standard Drinks/Week Comments No 0 (1 standard drink = 0.6 oz pure alcoho l) Sex Assigned at Date Recorded Female 07/03/2021 6:34 PM EDT documented as of this encounter Last Filed Vital Signs Vital Sign Reading Time Taken Comments Blood Pressure 129/62 01/22/2017 11:00 AM EDT Pulse - - Temperature - - Respiratory Rate - - Oxygen Saturation - - Inhaled Oxygen Concentration - - Weight - - Height - - Body Mass Index - - documented in this encounter Progress Notes Traci Moreno RN - 01/22/2017 11:51 AM EDT Radiation Oncology Nurse Note [facility] [place], [place] BP check per request of Dr Hardy: 129/62 Patient expressed relief in seeing this as she felt that it was too low On Thursday. Assessment: Regarding her breast, patient states her skin remains the same and applying the pads and cream with relief. She expressed appreciation today for checking BP and preferred not to have her skin visually assessed today since she feels she is stable. documented in this encounter Plan of Treatment Not on filedocumented as of this encounter Visit Diagnoses Diagnosis Malignant neoplasm of left female breast , unspecified site of breast documented in this encounter
--- OUTSIDE RECORDS SUMMARY | 2022-05-09 01:00 | XMS_ITS | Encounter Summary ---
:1960 Author Organization [facility] [place] [address] Care Team Providers Name Role Phone Unavailable Primary Care Provider Unavailable Reason for Visit Reason Comments Breast Cancer Encounter Details Date Type Department Care Team Description 12/25/2016 Office Visit Hematology/Oncology Walter Randhawa, Can cer of left at [facility] breast, stage [address] [place] [phone] (Wo rk) Social History Tobacco Use Types Packs/Day Years Used Date Former Smoker 1 30 Quit: 2006 Alcohol Use Standard Drinks/Week Comments No 0 (1 standard drink = 0.6 oz pure alcoho l) Sex Assigned at Date Recorded Female 07/03/2021 6:34 PM EDT documented as of this encounter Last Filed Vital Signs Vital Sign Reading Time Taken Comments Blood Pressure 147/85 12/25/2016 3:32 PM EDT Pulse 74 12/25/2016 3:32 PM EDT Temperature 36.7 ??C (98.1 ??F) 12/25/2016 3:32 PM EDT Respiratory Rate 16 12/25/2016 3:32 PM EDT Oxygen Saturation 100% 12/25/2016 3:32 PM EDT Inhaled Oxygen Concentration - - Weight 86.2 kg (190 lb) 12/25/2016 3:32 PM EDT Height 163.3 cm (5' 4.29) 12/25/2016 3:32 PM EDT Body Mass Index 32.32 12/25/2016 3:32 PM EDT documented in this encounter Progress Notes Walter Randhawa MD - 12/25/2016 3:30 PM EDT Diagnosis: Stage IIa adenocarcinoma left breast status post lumpectomy. The tumor was 2.1 x 1.8 cm ER/DC positive HER-2/claudette negative sentinel node negative. Status post lumpectomy and lumpectomy revision The patient's Oncotype DX was quite low at 15 representing a 10% chance of recurrence on estrogen blockers. SUBJECTIVE: Stefany comes in today for followup. I am pleased to be able to tell her that her Oncotype DX has a very low recurrence score at 15. She is planning on starting radiation therapy next week, and it looks like that plan is a go. In view of her low recurrence score, we will not recommend chemotherapy. We spent some time discussing that and going over test results and provided her with copies of that. Past Medical History: Diagnosis Date ??? ADHD (attention deficit hyperactivity disorder) ??? Arthritis ??? Cancer of left breast, stage 2 ??? Depression ??? HBP (high blood pressure) ??? Migraine ??? Ovarian cyst Past Surgical History: Procedure Laterality Date ??? MASTECTOMY, PARTIAL Left 10/2016 ??? OVARIAN CYST REMOVAL Allergies Allergen Reactions ??? [place] Dermatitis ??? Aspirin Other (See Comments) Severe abdominal pain ??? Black Pepper Dermatitis ??? Blueberry Dermatitis ??? Clams Dermatitis ??? Malt Extract Other (See Comments) headache ??? Mushroom Dermatitis ??? [place] Dermatitis ??? 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 Name:? STEFANY ZHENG? Accession #:? [id number]? :? 1960 (Age: 56)?F? Collect Date:? 11/10/2016? Location:? [facility]? Receive Date:? 11/10/2016? Provider: RUSLAN DAWSON MD Copy to: YASMEEN CARDOZO NP ? Final Pathologic Diagnosis: Updated: 11/13/2016 SUMMARY DIAGNOSIS FOR MALIGNANT BREAST TUMORS AJCC (7th edition): pT2 pN0(sn) Laterality:?Left? Specimen:?Wire localization excisional biopsy; reexcision of lateral margin Tumor Type:?Invasive lobular Tumor Size:?2.1 x 1.8 x 1.2 cm Tumor Location:? Not specified Marina Combined Histologic Scores: ? Tubules:?3 ? Nuclei:?1 ? Mitotic Rate:? 1 (actual count <1/10 HPF with field diameter of 0.54 mm) ? Total:?5 Differentiation:? Well Margins:?Negative (0.25 mm from closest margin, lateral) DCIS:? Not identified % DCIS:?N/A DCIS margins:? N/A LVI:? Not identified Lymph nodes:? 0/4 (positive/total count) ER/DC:?ER positive (>90%); DC positive (40%) ([id number]) Her2/claudette:? 1+/negative (by immunohistochemistry) ([id number]) ?Non-amplified (by in situ hybridization; Her2/Chr17 ratio: 1.43) ([id number]) FINAL PATHOLOGIC DIAGNOSIS: BREAST, LEFT, LATERAL MARGIN, REEXCISION: - Residual invasive lobular carcinoma (block 9). - Tumor measures 0.3 cm in greatest dimension. - Surgical resection margin negative; invasive tumor present 0.25 mm from new lateral margin. - Extensive reactive and reparative change with multinucleated giant cells, consistent with prior surgery ASSESSMENT/PLAN: Stefany is doing well at this point and is ready to start her radiation therapy. There would only be a 1% or 2%, at the most, improvement in recurrence rates with chemotherapy, and in that regard, one would not recommend that therapy in this instance. She has a good understanding of that and is quite pleased with the results. Plans will be to start her on Femara 2.5 mg a day at the end of radiation therapy. We went over why we wait until radiation therapy to be completed to start the medication. We talked about 15 years on the medication and the new data indicating additional benefit for prevention of new breast cancers when it is taken for a longer period of time. She understands there are other options should the aromatase inhibitor be poorly tolerated such as tamoxifen. We will see her back in 6 weeks' time near the end of radiation therapy with plans on starting Femara as noted. documented in this encounter Plan of Treatment Not on filedocumented as of this encounter Visit Diagnoses Diagnosis Cancer of left breast, stage 2 documented in this encounter
--- OUTSIDE RECORDS SUMMARY | 2022-05-09 01:00 | XMS_ITS | Encounter Summary ---
:1960 Author Organization [facility] Address [address] [place] [address] Care Team Providers Name Role Phone Unavailable Primary Care Provider Unavailable Reason for Visit Reason Comments Radiation Treatment Encounter Details Date Type Department Care Team Description 01/20/2017 Office Visit Radiation Oncology at Shannan Hardy MD Malignant neoplasm of [facility] left female breast, [address] unspecified site of [place], [place] RADIATION ONCOL OGY breast [phone] [place] [address] [phone] Social History Tobacco Use Types Packs/Day Years Used Date Former Smoker 1 30 Quit: 2006 Alcohol Use Standard Drinks/Week Comments No 0 (1 standard drink = 0.6 oz pure alcoho l) Sex Assigned at Date Recorded Female 07/03/2021 6:34 PM EDT documented as of this encounter Last Filed Vital Signs Vital Sign Reading Time Taken Comments Blood Pressure 105/53 01/20/2017 11:00 AM EDT Pulse 75 01/20/2017 11:00 AM EDT Temperature 37 ??C (98.6 ??F) 01/20/2017 11:00 AM EDT Respiratory Rate 16 01/20/2017 11:00 AM EDT Oxygen Saturation 99% 01/20/2017 11:00 AM EDT Inhaled Oxygen Concentration - - Weight 86.5 kg (190 lb 12.8 oz) 01/20/2017 11:00 AM EDT Height - - Body Mass Index 32.45 12/25/2016 3:32 PM EDT documented in this encounter Patient Instructions Patient InstructionsMedina Hardy MD - 01/20/2017 11:00 AM EDT Your last radiotherapy will be on M., 01/26/17. Congratulations! Please continue the teddy's cream. You may use 1% hydrocortisone cream up to 3 times daily for itchiness which is not relieved by teddy's cream. Please do not use deodorant other than Loco's on your left underarm. Please do not use a straight/regular razor on your left underarm. An electric razor is ok. Please do not expose the irradiated area to sun. Please do not swim in chlorinated water. Saltwater or freshwater is ok. We will mail you a letter with an appointment to see me in 1 month. documented in this encounter Progress Notes Medina Hardy MD - 01/20/2017 11:00 AM EDT DIAGNOSIS: Breast ca, L, ILC, gr 2, ER+VT+, Her2 neg, s/p lumpectomy & SNB followed by reexcision, pT2 pN0, stage IIA. Hormonal tx to follow xrt. CURRENT TREATMENT DOSE: 42.56 Gy L breast ANTICIPATED TOTAL DOSE: 42.56 Gy L breast, 52.56 Gy lumpectomy bed Current # of xrt received: 16 L breast Anticipated total # of xrt txs: 20 Evaluation of port verification films: Approved. For details, see electronic film record in [employer]. Changes in Medical Condition: Has developed mild itchiness w/in irrad'd area. No further abdominal pain. She is surprised by how low her bp is today. She feels tired. She is keeping herself well hydrated. Pain?: No. Your Medications These changes are accurate as of: 01/20/17 11:12 AM. If you have any questions, ask your [...] 2 g by mouth daily. Reported on 01/20/2017 2 g Refills: 0 FLUoxetine 20 mg Tab Commonly known as: PROzac Take 20 mg by mouth daily. Indications: Generalized Anxiety Disorder 20 mg Refills: 0 lisdexamfetamine 30 mg Cap Commonly known as: [...] Reported on 01/13/2017 10 mg Refills: 0 Flu vacc?: Yes, received this season. P&SH: Smoking? Quit 15 yrs ago. Physical Exam: BP 105/53 Pulse 75 Temp 37 ??C (98.6 ??F) (Oral) Resp 16 Wt 86.5 kg (190 lb 12.8 oz) SpO2 99% BMI 32.45 kg/m2 A&Ox3, NAD. Mild to moderate erythema & folliculitis L breast; skin intact. Amb stable. Imagin12/09/16 Dx'ic Rad Interp CTsim: Noncalcified/cholesterol gallstones in gallbladder. A few colonic diverticula w/o findings for diverticulitis. No pulmonary mets. Performance Status: KPS 100% Response to xrt: As expected. Irradiation Related Symptoms: Skin rxn. Tiredness. Treatment for Symptom Control: 1% hydrocortisone cream rec'd for itchiness not relieved by Teddy's cream. Given mepilex-lite to try. Pain Management: Not needed. Recommendation on Continuing Course of xrt: Cont. Will recheck bp later in wk. Completes xrt 01/26/17. Rtc 1 mo. Skin care discussed. Cc: Tila Salinas APRN Yenny Trujillo - 01/20/2017 11:00 AM EDT Sent fax to Jessica Salinas and scheduled 1 month follow will send card. documented in this encounter Plan of Treatment Not on filedocumented as of this encounter Visit Diagnoses Diagnosis Malignant neoplasm of left female breast , unspecified site of breast documented in this encounter
--- OUTSIDE RECORDS SUMMARY | 2022-05-09 01:00 | XMS_ITS | Encounter Summary ---
:1960 Author Organization [facility] Address [facility] [place] [address] Care Team Providers Name Role Phone Unavailable Primary Care Provider Unavailable Reason for Visit Reason Comments Radiation Treatment Encounter Details Date Type Department Care Team Description 01/06/2017 Office Visit Radiation Oncology at Shannan Hardy MD Malignant [facility] [facility] [place], [address] unspecified site of [place], [place] RADIATION ONCOL OGY breast [id number] [place] [address] [phone] Social History Tobacco Use Types Packs/Day Years Used Date Former Smoker 1 30 Quit: 2006 Alcohol Use Standard Drinks/Week Comments No 0 (1 standard drink = 0.6 oz pure alcoho l) Sex Assigned at Date Recorded Female 07/03/2021 6:34 PM EDT documented as of this encounter Last Filed Vital Signs Vital Sign Reading Time Taken Comments Blood Pressure 108/65 01/06/2017 11:11 AM EDT Pulse 74 01/06/2017 11:11 AM EDT Temperature 36.8 ??C (98.2 ??F) 01/06/2017 11:11 AM EDT Respiratory Rate 16 01/06/2017 11:11 AM EDT Oxygen Saturation 99% 01/06/2017 11:11 AM EDT Inhaled Oxygen Concentration - - Weight - - Height - - Body Mass Index - - documented in this encounter Progress Notes Medina Hardy MD - 01/06/2017 11:15 AM EDT DIAGNOSIS: Breast ca, L, ILC, gr 2, ER+GA+, Her2 neg, s/p lumpectomy & SNB followed by reexcision, pT2 pN0, stage IIA. Hormonal tx to follow xrt. CURRENT TREATMENT DOSE: 18.62 Gy L breast ANTICIPATED TOTAL DOSE: 42.56 Gy L breast, 52.56 Gy lumpectomy bed Current # of xrt received: 7 Anticipated total # of xrt txs: 20 Evaluation of port verification films: Approved. For details, see electronic film record in [employer]. Changes in Medical Condition: Acid reflux relieved by omeprazole. No problem w/irrad'd area. Pain?: No. Your Medications These changes are accurate as of: 01/06/17 11:22 AM. If you have any questions, ask [...] 2 g by mouth daily. Reported on 01/06/2017 2 g Refills: 0 FLUoxetine 20 mg [...] 10 mg by mouth daily. Reported on 01/06/2017 10 mg Refills: 0 omeprazole 20 mg Cpdr Commonly known as: PriLOSEC Take 20 mg by mouth as needed. 20 mg Refills: 0 oxyCODONE 5 mg Tab Commonly known as: ROXICODONE Reported on 01/06/2017 Refills: 0 rizatriptan 10 mg Tab Commonly known as: MAXALT Take 10 mg by mouth as needed for Migraine. Reported on 01/06/2017 10 mg Refills: 0 Flu vacc?: Yes, received this season. P&SH: Smoking? Quit 15 yrs ago. Physical Exam: BP 108/65 (Patient Position: Sitting) Pulse 74 Temp 36.8 ??C (98.2 ??F) (Oral) Resp 16 SpO2 99% A&Ox3, NAD. Minimal erythema L breast. Amb stable. Imagin12/09/16 Dx'ic Rad Interp CTsim: No pulmonary mets. Performance Status: KPS 100% Response to xrt: As expected. Irradiation Related Symptoms: Skin rxn. Treatment for Symptom Control: Teddy's cream. Pain Management: Not needed. Recommendation on Continuing Course of xrt: Cont. ReCTsim 01/13/17 for boost plan. documented in this encounter Plan of Treatment Not on filedocumented as of this encounter Visit Diagnoses Diagnosis Malignant neoplasm of left female breast , unspecified site of breast documented in this encounter
--- OUTSIDE RECORDS SUMMARY | 2022-05-09 01:00 | XMS_ITS | Encounter Summary ---
:1960 [place] [address] Care Team Providers Name Role Phone Unavailable Primary Care Provider Unavailable Encounter Details Date Type Department Care Team Description 01/13/2017 Telephone Radiation [place]cology [place] [address] Social History Tobacco Use Types Packs/Day Years Used Date Former Smoker 1 30 Quit: 2006 Alcohol Use Standard Drinks/Week Comments No 0 (1 standard drink = 0.6 oz pure alcoho l) Sex Assigned at Date Recorded Female 07/03/2021 6:34 PM EDT documented as of this encounter Miscellaneous Notes Telephone Encounter - Rita Araujo - 01/13/2017 7:31 AM EDT Simulation on 01/13/17. Confirmed active [place] [facility] [place]. [place] ([facility]) prefix with [place] PCP. Authorization done in the state where the PCP is located, [place]. No auth required for the rad onc cpt codeswe use per current [facility] precert list. documented in this encounter Plan of Treatment Not on filedocumented as of this encounter Visit Diagnoses Not on filedocumented in this encounter
--- OUTSIDE RECORDS SUMMARY | 2022-05-09 01:00 | XMS_ITS | Encounter Summary ---
:1960 Author Organization [facility] [place] [address] Care Team Providers Name Role Phone Unavailable Primary Care Provider Unavailable Encounter Details Date Type Department Care Team Description 12/09/2016 Ancillary Radiation Oncology Medina Hardy, Malign ant neoplasm Appointment at [facility] of [address], unspecified [place], [place] [address] [address] site of breast [address] RADIATION [phone] [place] [address] Social History Tobacco Use Types Packs/Day Years Used Date Former Smoker 1 30 Quit: 2006 Alcohol Use Standard Drinks/Week Comments No 0 (1 standard drink = 0.6 oz pure alcoho l) Sex Assigned at Date Recorded Female 07/03/2021 6:34 PM EDT documented as of this encounter Patient Instructions Patient InstructionsTraci Moreno RN - 12/09/2016 1:00 PM EST Information for Patients receiving radiation therapy to the Breast Approximately two weeks after your first treatment, you may begin to experience side effects caused by the radiation. These effects may continue throughout the treatment period and not start improving until 1-2 weeks after treatment is completed. Your doctor will tell you which side effects you are most likely to experience, when you will notice them and how long they might last. It is important to follow the appropriate instructions to minimize your discomfort. Skin Care ??? Wash skin in the treatment field with lukewarm water and mild or moisturizing, unscented soap daily. Blot skin dry with a soft towel. ??? Do not apply any ointment, salve, deodorant, perfume, cologne, cosmetic or self-remedy to the treatment area while you are undergoing radiation and for 1-2 weeks following treatment. An all naturaldeodorant with no aluminum can be used if necessary. ??? Moisturizing cream will be provided for you. This may be used in the treatment area once daily beginning on your first treatment day. Do not apply 2 hours before your radiation treatments. As dryness/redness develop you can use this more often. ??? Do not rub or scratch the skin in the treatment field. This includes shaving unless you use an electric razor. If your skin becomes dry or itchy, tell your nurse or doctor. If necessary, your doctor may order a medication specifically for this problem. ??? Do not use hot water bottles, heating lights, electric heating pads, or hot packs to the treatment area. ??? Keep treated areas out of the sun throughout the treatment period. Be careful of sun exposure tothe treatment field for one year following treatment. Please use SPF> 30 to all exposed areas of skin and limit sun exposure. ??? Avoid tight fitting clothes. We would prefer that you wear a cotton t-shirt instead of a bra. Ifyou are unable to go without a bra please wear a soft cotton bra without underwire. ??? Examine your skin in the treatment area daily and watch for changes. If you cannot reach the whole treatment field ask a family member to look at it and apply cream as needed. Be careful to keep the area under your breast clean and dry as this area can get irritated first. ??? You will meet with your nurse and doctor weekly. They will check your skin and help you with anyside effects you are having. Please ask to see the nurse if you have concerns in between these days. ??? During the last weeks of treatment you may notice some peeling of skin and/or a moist reaction. Be sure to let us know if this happens so we can provide you with further skin care instructions.. ??? Continue to stay active, walk daily, eat healthy foods and drink several glasses of water each day. Fatigue You may notice that you feel unusually tired towards the end of treatment. This is not unusual. We recommend that you pace your activities and plan for rest periods to avoid becoming over-tired. Feel free to direct any questions or concerns you may have related to your treatment to your nurse or doctor. [facility] Radiation Oncology Our normal business hours are: Thursday - Thursday 8 AM to 5 PM [place], [place], [place] For emergent situations after hours please call for either location and ask for the Radiation Oncologist wafer production lead worker. documented in this encounter Progress Notes Medina Hardy MD - 12/09/2016 1:00 PM EST Here for sim. Reports received since consult: 07/14/16 screening mmg: Asymmetric breast tissue UIQ L breast. 08/01/16 dx'ic L mmg & L breast US: Increased density & region of architectural distortion UIQ w/US showing 2.1 x 1.2 x 1.8 cm mass in UIQ. Sim: Breast bd immobilization; flat bbs on L breast lumpectomy scar; CT through chest showed heart to approach chest wall & so she was then instructed in deep inspiration breath hold (DIBH), & 2nd CT done w/DIBH; 3D xrt planned. She tolerated sim well, w/o problem. Tx Plan: 3D xrt. Start xrt 12/29/16. She has been instructed to not take fish oil during xrt. documented in this encounter Plan of Treatment Not on filedocumented as of this encounter Visit Diagnoses Diagnosis Malignant neoplasm of left female breast , unspecified site of breast documented in this encounter
--- OUTSIDE RECORDS SUMMARY | 2022-05-09 01:00 | XMS_ITS | Encounter Summary ---
:1960 Author Organization [facility] Address [address] [place] [address] Care Team Providers Name Role Phone Unavailable Primary Care Provider Unavailable Reason for Visit Reason Comments Radiation Consult Encounter Details Date Type Department Care Team Description 12/08/2016 [facility] [place] left female breast, [address] unspecified site of [place], [place] RADIATION ONCOL OGY breast [address] [place] [address] [phone] Social History Tobacco Use Types Packs/Day Years Used Date Former Smoker 1 Quit: 2006 Alcohol Use Standard Drinks/Week Comments No 0 (1 standard drink = 0.6 oz pure alcoho l) Sex Assigned at Date Recorded Female 07/03/2021 6:34 PM EDT documented as of this encounter Progress Notes Yenny Lee RN - 12/08/2016 11:00 AM EST RADIATION ONCOLOGY NURSING INITIAL NURSING ASSESSMENT IDENTIFICATION: Stefany Edward is a 56 y.o. year-old female with breast cancer PRESENTING SYMPTOMS/CHIEF COMPLAINT: Presented with abnormal mammogram which led to further testing and diagnosis. REVIEW OF SYSTEMS Review of Systems Constitutional: Negative for appetite change, fatigue and unexpected weight change. Respiratory: Negative for cough and chest tightness. Cardiovascular: Negative for chest pain. Gastrointestinal: Negative for constipation, nausea and vomiting. Genitourinary: Negative for dysuria. Musculoskeletal: Negative for neck stiffness. Skin: Wound: s/p partial mastectomy, re excision. Allergic/Immunologic: Negative for environmental allergies and food allergies. Neurological: Negative for dizziness and light-headedness. IN THE PAST 12 MONTHS HAVE YOU: Fallen more than one time? No Injured yourself as result of the fall? N/A Experienced difficulty with walking? No (If patient does not know or declines to answer, please note in the 3 star option) If patient answered yes to any of the above, please offer to print out one of the following resources that may apply to them: Stay Independent http://www.cdc.gov/steadi/pdf/stay_independent_brochure-a.pdf What you can do to prevent falls http://www.cdc.gov/steadi/pdf/what_you_can_do_brochure-a.pdf Check for Safety-A home fall prevention checklist for older adults http://www.cdc.gov/steadi/pdf/check_for_safety_brochure-a.pdf Postural Hypotension-What is it and how to manage it http://www.cdc.gov/steadi/pdf/postural_hypotension-a.pdf Chair Rise Exercises to strengthen the muscles of things and buttocks http://www.cdc.gov/steadi/pdf/chair_rise_exercise-a.pdf Prior Radiotherapy: No Prior Chemotherapy: No Prior Hormone Therapy: Yes Drug(s): control. Quit about 6-7 years ago RADIOLOGY SAFETY QUESTIONS REVIEWED: No addressed today LEARNING ASSESSMENT REVIEWED: yes ADVANCED DIRECTIVE: PAIN ASSESSMENT: 0 out of 10 *eD-H Adult PCS Flow Sheet if 4 or above SOCIAL ASSESSMENT: See ED social assessment information entered. Support Systems: Here today with spouse. Family supportive Barriers to treatment: None identified. Referrals/Interventions: REFUELING RAMP ATTENDANT on day of simulation RADIATION SPECIFIC TEACHING: [facility] Radiation Therapy and You Site specific teaching : To be done by nursing on day of simulation. Other: PLAN: Per Dr. Hardy Medina Nicole MD - 12/08/2016 11:00 AM EST Images from the original note were not included. CC: Referred by Dr. Simi Bajwa for eval for xrt for breast ca. HPI: 56 y/o f who presented w/L breast abnlty. 08/22/16 needle bxs L breast. [facility] path: ILC, ER+AL+, Her2 RAYRAY neg. 10/08/16 US guided NLOC R breast lumpectomy & SNB. 4 clips placed into cavity medially & laterally; superiorly & inferiorly for radiation purposes. [facility] path: ILC, gr 2, 24 mm, tumor focality cannot be determined - indeterminate per outside report;LVI cannot be determined, a few suspicious foci; RM + for invasive ca, lateral, focal; no dcis; 4 sentinel lymph nodes (all neg); pT2 pN0. 11/10/16 reexcision L breast. Path: SUMMARY DIAGNOSIS FOR MALIGNANT BREAST TUMORS AJCC (7th edition): pT2 pN0(sn) Laterality:?Left? Specimen:?Wire localization excisional biopsy; reexcision of lateral margin Tumor Type:?Invasive lobular Tumor Size:?2.1 x 1.8 x 1.2 cm Tumor Location:? Not specified [place] Combined Histologic Scores: ? Tubules:?3 ? Nuclei:?1 ? Mitotic Rate:? 1 (actual count <1/10 HPF with field diameter of 0.54 mm) ? Total:?5 Differentiation:? Well Margins:?Negative (0.25 mm from closest margin, lateral) DCIS:? Not identified % DCIS:?N/A DCIS margins:? N/A LVI:? Not identified Lymph nodes:? 0/4 (positive/total count) ER/AL:?ER positive (>90%); AL positive (40%) ([id number]) Her2/claudette:? 1+/negative (by immunohistochemistry) ([id number]) ?Non-amplified (by in situ hybridization; Her2/Chr17 ratio: 1.43) ([id number]) FINAL PATHOLOGIC DIAGNOSIS: BREAST, LEFT, LATERAL MARGIN, REEXCISION: - Residual invasive lobular carcinoma (block 9). - Tumor measures 0.3 cm in greatest dimension. - Surgical resection margin negative; invasive tumor present 0.25 mm from new lateral margin. - Extensive reactive and reparative change with multinucleated giant cells, consistent with prior surgery. ?? She was seen by Dr. Randhawa of [facility] earlier today, & Oncotype DX being obtained. ROS: Healing well. No pain. No hand/arm swelling. ROM of arms around shoulders ok. Appetite good. Energy level ok. Accompanied by . No past medical history on file. No past surgical history on file. Your Medications These changes are accurate as of: 12/08/16 12:40 PM. If you have any questions, ask your nurse or doctor. Continued medications, unchanged Dose Details cholecalciferol (Vitamin D3) 2,000 unit Cap Take 1 capsule by mouth daily. Generic drug: cholecalciferol (Vitamin D3) 1 capsule Refills: 0 cyanocobalamin 1,000 mcg Tab Take 1,000 mcg by mouth daily. 1000 mcg Refills: 0 fish oil-omega-3 fatty acids 1,000 mg Cap Take 2 g by mouth daily. 2 g Refills: 0 FLUoxetine 20 mg [...] daily. Indications: hypertension 1 tablet Refills: 0 rizatriptan 10 mg Tab Commonly known as: MAXALT Take 10 mg by mouth as needed for Migraine. May repeat in 2 hours if needed 10 mg Refills: 0 Receives flu vacc; received for this season. P&SH: Quit smoking 15 yrs ago. Physical Exam Constitutional: She is oriented to person, place, and time. She appears well- developed and well-nourished. No distress. 184 lbs 98.8 F 95 18 145/85 99% HENT: Head: Normocephalic and atraumatic. Eyes: Conjunctivae [...] change and no tenderness. Left breast exhibits no inverted nipple, no mass, no nipple discharge, no skin change and no tenderness. Abdominal: Soft. She exhibits [...] normal. Judgment and thought content normal. A: Breast ca, L, ILC, gr 2, ER+AL+, Her2 neg, s/p lumpectomy & SNB followed by reexcision, pT2 pN0, stage IIA. P: A course of xrt to L breast rec'd to increase likelihood of ca control. Xrt would be given in 20 fxs, unless xrt preceded by chemo, in which case xrt would be given in 33 fxs. Possible side effects of xrt to breast discussed, w/acute/immediate side effects including: Pinkening, soreness & peeling of skin in treated area; swelling of treated breast; soreness of treated breast; cough; shortness of breath; tiredness. Late/mcfp side effects to breast discussed include: Treated breast may shrink, become firmer & sit higher on chest; achiness/stiffness of chest wall on treated side; slight increase in small risk of dying of heart disease (from 1.9% to 2.4%) in women irradiated to L breast/chest; rib fractureon treated side; CT after xrt may show scarring w/in small volume of lung on treated side; very small risk of radiotherapy associated 2nd malignancy. Need for CTsim prior to xrt discussed. At CTsim, she would be evaluated for use of deep inspiration breath hold (DIBH). She would like to proceed w/xrt & will return for CTsim tomorrow. She was advised to not take vit E/fish oil supplement during xrt. She states that her mmgs were done @ [facility] & the reports will be requested. 25 mins of 40 min face to face visit w/Stefany spent discussing rationale for xrt; hoped for benefit of xrt; possible side effects/complications of xrt; prevention/management of side effects/complications of xrt; logistics of daily xrt; timing of xrt vis a vis chemo; CTsimulation w/eval for DIBH; arm position required for xrt; followup after completion of xrt. Cc: Dr. Bajwa documented in this encounter Plan of Treatment Not on filedocumented as of this encounter Procedures Procedure Name Priority Date/Time Associated Comments Diagnosis ULTRASOUND SCAN 08/01/2016 12:00 AM Resul ts for this (SCAN) EDT procedure are i n the results section. MAMMOGRAM SCAN 07/14/2016 12:00 AM Result s for this EDT procedure are i n the results section. documented in this encounter Results SCAN DOC: ULTRASOUND (08/01/2016 12:00 AM EDT) Narrative 08/01/2016 12:00 AM EDT This result has an attachment that is no t available. Ordered by an unspecified provider. Scanning Provider MEDIA MGR SCAN EXT ORDR/RSLT SCAN DOC: MAMMOGRAM (07/14/2016 12:00 AM EDT) Narrative 07/14/2016 12:00 AM EDT This result has an attachment that is no t available. Ordered by an unspecified provider. Scanning Provider MEDIA MGR SCAN EXT ORDR/RSLT documented in this encounter Visit Diagnoses Diagnosis Malignant neoplasm of left female breast , unspecified site of breast documented in this encounter
--- OUTSIDE RECORDS SUMMARY | 2022-05-09 01:00 | XMS_ITS | Encounter Summary ---
:1960 Author Organization [facility] [place] [address] Care Team Providers Name Role Phone Donald Bajwa MD Primary Care Provider Encounter Details Date Type Department Care Team Description 11/04/2016 Hospital [place] [phone] Social History Tobacco Use Types Packs/Day Years Used Date Never Assessed Sex Assigned at Date Recorded Female 07/03/2021 6:34 PM EDT documented as of this encounter Medications at Time of Discharge Medication Sig Dispensed Refills Start Date End Date oxyCODONE (ROXICODONE) 5 Reported on 01/13/2017 0 10/08/2016 01/13/2017 mg Tablet documented as of this encounter Plan of Treatment Not on filedocumented as of this encounter Procedures Procedure Name Priority Date/Time Associated Diagnosis Comme [facility] SURGICAL PATHOLOGY Routine 11/04/2016 3:07 PM Res ults for this REPORT EST procedure are i n the results section. documented in this encounter Results Surgical Pathology Report (11/04/2016 3:07 PM EST) Component Value Ref Test Analysis Performed At [facility] Method Time Signature Surgical [id number] ?Location: [facility] Pathology [place] Report The signing pathologist has (i) examined the relevant preparation(s) for the [facility] specimen(s) and (ii) rendered or confirmed the diagnosis(es) . HOSPITAL LABORATORY . ?Surgic al Pathology DIAGNOSIS CONSULTATION CASE A - 5 slide(s) labeled [id number], collection date 08/22/2016 . A - Needle biopsies: ??Left breast. Diagnosis: ??Invasive lobular carcinoma. Outside slides reviewed - ER immunoreactivity: ??Positive ?? > 90% cancer cells with i mmunostaining, ? Stain intensity Strong MO immunoreactivity: ??Positive 11-90% cancer cells with imm unostaining, ? Stain intensity Strong Per report, Her2/claudette (RAYRAY) i s non-amplified. Please see outside report for receptor details. B - 21 slide(s) labeled [id number], collection date 10/08/2016. Specimen Parts: ?? Left breast mass Specimen ? Procedure: ??Excision with image-guided localiz ation ? Lymph Node Sampling: ?? [place] lymph node(s) ? Specimen Laterality: ?? Left Tumor ? Histologic Type: ?? Invasive lobular carcinoma ? Glandular (Acinar) / Tubular Differentiation: ?Score 3 ? Nuclear Pleomorphism: ?? Score 2 ? Mitotic Rate: ?? Score 1 ? Overall Grade: ?? Grade 2 (scores of 6 or 7) ? Tumor Size: Size of Largest Invasive Carcinoma: ?24 mm ? Tumor Focality: ?? Cannot be determined - Indeterminate, per outside report ? Ductal Carcinoma In Situ (DCIS): ?No DCIS i s present ? Tumor Extent ?Macroscopic and Microscopic Extent of Tumo r ? Skin: ??Skin is not present ? Skeletal Muscle: ?? No skeletal muscle is present ? Accessory Tumor Findings ?Lymph-Vasc ular Invasion: ?? Cannot be determined - A few suspicious foci Margins ? Invasive Carcinoma: ?? Margin(s) po sitive for invasive carcinoma ?Margin(s): ??Lateral ? Lateral: ??Focal ? Distance to Other Close Margins: ?? 0. 5 mm- Anterior ? 2 mm -Posterior ? Ductal Carcinom a In Situ (DCIS): ?DCIS not present in specimen Lymph Nodes ? [place] Lymph Nodes: ?? [place] lymph node bi opsy performed ? Number of [place] Nodes Examined: ?4 ? Number of Lymph Node(s) Examined (sentinel and nonsentinel): ? 4 ? Lymph Node Involvement: ?? None identified Stage (pTNM) ? Pathological Stage: ?? pT2 ??pN0 ??Not applicab le Additional Findings ? Additional Path ologic Findings: ?? Paz-neural invasion is present. . DIAGNOSIS CAP eCC December 2015 Annual Release Electronically signed by: ??Cassandra Jackson DO Verified: ??11/17/2016 ?Pathologist ADDITIONAL STUDIES The outside hospital kindly sent unstained slide s for the following testing - Immunohistochemistry Studies: Formalin-fixed, paraffin-emb edded tissue sections are studied using the polymer technique with appropriate positive and negative controls. ?These IHC studies provide the pathologist wit h adjunctive diagnostic information. Antibody specificity has been verified by testin g antibodies on a series of in-house tissues with known immunohistochemical perform ance characteristics. The clinical interpretation of any antibody positive stain ing or its absence is evaluated within the context of clinical presentation, morp hology, histopathological criteria and other diagnostic tests. Block ? Antibody ?Result (Positive /Negative) B2 ?CKAE1/3 ?Negative C3 ?CKAE1/3 ?Negative CLINICAL INFORMATION Specimen Submitted: CONSULTATION CASE A - 5 slide(s) labeled [id number], collection date 08/22/2016 . B - 21 slide(s) labeled [id number], collection date 10/08/2016. [id number] Report to: [facility] Surgical Pathology Department [facility], [place], [address], [place] ??[address] SPECIMEN PROCESSING [facility] ([facility]) pathology slide(s) are reviewed. ??Refer to Diagnosis and Specimen Submitted for specific case infor oneil. For the full text of the [facility] report(s) please refer t o Non-DH Documentation Pathology in the electronic health record (eDH). Specimen (Source) Anatomical Collection Method Collection Time Re ceived Time Location / / Volume Laterality 11/04/2016 3:07 PM EST Janet Matthew MD PATHOLOGY/CYTOLOGY ORDERABLE S Performing Organization Address City/State/[place] [address] documented in this encounter Visit Diagnoses Not on filedocumented in this encounter Care Teams Assistant Professor Of History Relationship Specialty Start Date End Date Donald Bajwa MD PCP - General Emergency Medicine 10/31/16 documented as of this encounter
--- OUTSIDE RECORDS SUMMARY | 2022-05-09 01:00 | XMS_ITS | Encounter Summary ---
:1960 Author Organization [facility] [place] [address] Care Team Providers Name Role Phone Unavailable Primary Care Provider Unavailable Reason for Visit Consultation (Urgent) - Specialty Diagnoses / Procedures Referred By Contact Refer red To Contact Hematology and Oncology Diagnoses Lobular CA of left breast Erica Dawson Hem Onc Office Ruslan Beasley MD [address] [place] [address] [address] [place] [id number] Referral ID Status Reason Start Date Expiration Date Visits V isits Requested Authorized [id number] Consult, Test 10/31/2016 10/31/2017 [facility] PCP Updated and/or Approved Encounter Details Date Type Department Care Team Description 12/08/2016 Office Visit Hematology/Oncology Walter Randhawa, Can cer of left at [facility] breast, stage [address] [place] [phone] (Wo rk) Social History Tobacco Use Types Packs/Day Years Used Date Former Smoker 1 30 Quit: 2006 Alcohol Use Standard Drinks/Week Comments No 0 (1 standard drink = 0.6 oz pure alcoho l) Sex Assigned at Date Recorded Female 07/03/2021 6:34 PM EDT documented as of this encounter Last Filed Vital Signs Vital Sign Reading Time Taken Comments Blood Pressure 145/85 12/08/2016 10:09 AM EST Pulse 95 12/08/2016 10:09 AM EST Temperature 37.1 ??C (98.8 ??F) 12/08/2016 10:09 AM EST Respiratory Rate 18 12/08/2016 10:09 AM EST Oxygen Saturation 99% 12/08/2016 10:09 AM EST Inhaled Oxygen Concentration - - Weight 83.5 kg (184 lb) 12/08/2016 10:09 AM actual, no shoes EST Height 163.3 cm (5' 4.29) 12/08/2016 10:09 AM actual, no shoes EST Body Mass Index 31.3 12/08/2016 10:09 AM EST documented in this encounter Progress Notes Paloma Vasquez, RN - 12/08/2016 10:00 AM EST MEDICAL ONCOLOGY INITIAL NURSING ASSESSMENT ADVANCE DIRECTIVES: In EDH [ ] Has documents [ ] Will bring in [ ] IF NO: Advance Directive pamphlet provided : Referral to Care Management : PRESENTING SYSTEMS and PATHOLOGY: as per Dr. Randhawa REVIEW OF SYSTEMS: as per Dr. Randhawa Prior Radiotherapy: no[ x ] Yes[ ]Site Date Facility Prior Chemotherapy: no[ x ] Yes[ ] Drug: Oncologist- LastTreatment: NO: YES: Claustrophobia or requires sedation for MRIs no Allergy to CT or MRI contrast agent or iodine or shellfish no Diabetic and on metformin no Metal in body, implanted device, worked with metal, body piercings,braces no Dentures or hearing device no Pacemaker no Difficulty breathing while lying flat no Kidney problems/creatinine no Balance difficulty: [ x ]no [ ]yes At risk for fall: [ ] no [ ] yes If yes, actions implemented to prevent fall. Patient/family instructed to avoid independent ambulation. Use wheelchair and ask for assistance of staff while in the clinic. ADL [x ] no limits [ ] needs dressing assistance [ ] needs meal assistance Assistive device:[ ]none [ ]cane [ ]walker [ ]wheelchair [ ]other: explain PAIN ASSESSMENT: [0 ] out of 10 Location: Description: [ ] Dull [ ] Sharp [ ] Burning [ ] Throbbing [ ] Radiating [ ] Continuous [ ]Intermittent Aggravating Factors: [ ] Movement [ ] Position [ ]Immobility [ ]Other Alleviating Factors: [ ]Medication [ ] Positioning [ ] Other Current Pain Management Plan: [ ]Satisfied [ ] Not satisfied SOCIAL ASSESSMENT: See [facility] social assessment information entered. Support Systems: transportation plan: [x ]private vehicle [ ] RCT needs Social Work referral [ ] Unknown at this time needs Social Work referral Barriers to treatment: None Referrals/Interventions: LEARNING STYLE: Visual and verbal, wants written material and verbal discussion. TEACHING: _x_ NCI ???Chemotherapy and You?? and folder given _x_ Specific chemotherapy literature provided and reviewed with patient. 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 The tumor was 2.1 x 1.8 cm ER/RI positive HER-2/claudette negative sentinel node negative. Status post lumpectomy and lumpectomy revision SUBJECTIVE: Stefany comes in today for a consultation at the request of Dr. Ruslan Dawson. She had an abnormal mammogram which led to a biopsy and ultimately a lumpectomy with axillary node dissection. There was positive margin so the patient then went back and had a revision of her lumpectomy with clear margins. Pathology is reviewed and showed a 2.1 x 1.8 x 1.2 cm tumor, low-grade, well differentiated with 0 of 4 positive sentinel nodes and no lymphovascular invasion. The tumor was ERPR positive and HER2/claudette negative. She is here today to discuss recommendations for further systemic treatment and has an appointment to see radiation therapy for their recommendations post lumpectomy. In talking to her today, she is exceptionally well read. She understood the difference between local control and systemic control, and had been reading extensively on things. Much of her reading centered on the use of tamoxifen and she has also read on Oncotype DX and had questions about that. We basically reviewed the treatment of breast cancer and the followup of breast cancer, what treatments are used, why we recommend radiation. We also talked about the role of Oncotype DX in detail today. I believe we answered all of her questions. Past Medical History: Diagnosis Date ??? ADHD (attention deficit hyperactivity disorder) ??? Arthritis ??? Cancer of left breast, stage 2 ??? Depression ??? HBP (high blood pressure) ??? Migraine ??? Ovarian cyst Past Surgical History: Procedure Laterality Date ??? MASTECTOMY, PARTIAL Left 10/2016 ??? OVARIAN CYST REMOVAL Allergies Allergen Reactions ??? [place] Dermatitis ??? Aspirin Other (See Comments) Severe abdominal pain ??? Black Pepper Dermatitis ??? Blueberry Dermatitis ??? Clams Dermatitis ??? Malt Extract Other (See Comments) headache ??? Mushroom Dermatitis ??? [place] Dermatitis ??? Other [Unclassified Drug] Dermatitis Lobster causes severe itching ??? Peanut Dermatitis Medications 12/08/16 1108 Medication Sig Taking? [...] taken when reading/interpreting unformatted reports. Name:? STEFANY ZHENG Suzie? Accession #:? [id number]? :? 1960 (Age: 56)?F? Collect Date:? 11/10/2016? Location:? [facility]? Receive Date:? 11/10/2016? Provider: RUSLAN DAWSON MD Copy to: YASMEEN CARDOZO NP ? Final Pathologic Diagnosis: Updated: 11/13/2016 SUMMARY DIAGNOSIS FOR MALIGNANT BREAST TUMORS AJCC (7th edition): pT2 pN0(sn) Laterality:?Left? Specimen:?Wire localization excisional biopsy; reexcision of lateral margin Tumor Type:?Invasive lobular Tumor Size:?2.1 x 1.8 x 1.2 cm Tumor Location:? Not specified Echo Combined Histologic Scores: ? Tubules:?3 ? Nuclei:?1 ? Mitotic Rate:? 1 (actual count <1/10 HPF with field diameter of 0.54 mm) ? Total:?5 Differentiation:? Well Margins:?Negative (0.25 mm from closest margin, lateral) DCIS:? Not identified % DCIS:?N/A DCIS margins:? N/A LVI:? Not identified Lymph nodes:? 0/4 (positive/total count) ER/RI:?ER positive (>90%); RI positive (40%) ([id number]) Her2/claudette:? 1+/negative (by immunohistochemistry) ([id number]) ?Non-amplified (by in situ hybridization; Her2/Chr17 ratio: 1.43) ([id number]) FINAL PATHOLOGIC DIAGNOSIS: BREAST, LEFT, LATERAL MARGIN, REEXCISION: - Residual invasive lobular carcinoma (block 9). - Tumor measures 0.3 cm in greatest dimension. - Surgical resection margin negative; invasive tumor present 0.25 mm from new lateral margin. - Extensive reactive and reparative change with multinucleated giant cells, consistent with prior surgery ASSESSMENT/PLAN: Stefany is doing well post lumpectomy for an early stage 2A breast cancer. It is 2A mainly because of size and 1 dimension being greater than 2 cm. I think she is a good candidate for Oncotype DX testing which will give us a bit better understanding of her risk of recurrence on an estrogen naina alone and what the benefit of chemotherapy would be. We went over that in detail today and that is a route she would like to go. I did discuss what chemotherapy involves so she would have that information. I talked about a aromatase inhibitors and selective estrogen receptor modulators and the difference between them and the side effects of each group. I told her I was leaning toward an aromatase inhibitor and probably Femara would be my choice. We talked about the benefits of taking this for 15 years and also the risks of osteoporosis. We talked about the role for radiation therapy as well. We also discussed whether or not we would consider chemotherapy based on Oncotype DX. She has an understanding that certainly with high risk we would lean towards chemotherapy, but the low risk we would recommend against it. Intermittent risks, however, needs to be evaluated individually with my tendency, if there is concern, is to give chemotherapy. As noted, we talked about what that will involve. We will go ahead and order Oncotype DX testing on her and see her back in a couple of weeks to go over the results. As noted, she is going to meet with radiation therapy today and she already has her questions prepared for that visit. She will call if there are issues or questions in the interim. documented in this encounter Plan of Treatment Not on filedocumented as of this encounter Visit Diagnoses Diagnosis Cancer of left breast, stage 2 documented in this encounter
--- OUTSIDE RECORDS SUMMARY | 2022-05-09 01:00 | XMS_ITS | Encounter Summary ---
:1960 Author Organization [facility] [place] [address] Care Team Providers Name Role Phone Unavailable Primary Care Provider Unavailable Encounter Details Date Type Department Care Team Description 01/13/2017 Ancillary Radiation Oncology Medina Hardy, Malign ant neoplasm Appointment at [facility] MD of left female [address] [place] [address] [facility], unspecified [place], [place] [address] site of breast [phone] RADIATION [phone] [place] [address] Social History Tobacco Use Types Packs/Day Years Used Date Former Smoker 1 30 Quit: 2006 Alcohol Use Standard Drinks/Week Comments No 0 (1 standard drink = 0.6 oz pure alcoho l) Sex Assigned at Date Recorded Female 07/03/2021 6:34 PM EDT documented as of this encounter Progress Notes Medina Hardy MD - 01/13/2017 10:00 AM EDT Here for reCTsim for boost plan. ReCTsim needed due to anatomy change from ongoing healing @ lumpectomy bed. Sim: Breast bd immobilization; flat bbs on L breast lumpectomy scar; CT through chest showed heart to approach chest wall & so 2nd CT was done w/deep inspiration breath hold (DIBH); 3D xrt planned. She tolerated sim well, w/o problem. Tx Plan: 3D xrt. Start xrt after 42.56 Gy/16 fxs L breast. documented in this encounter Plan of Treatment Not on filedocumented as of this encounter Visit Diagnoses Diagnosis Malignant neoplasm of left female breast , unspecified site of breast documented in this encounter
--- OUTSIDE RECORDS SUMMARY | 2022-05-09 01:00 | XMS_ITS | Encounter Summary ---
:1960 Author Organization [facility] [place] [address] Care Team Providers Name Role Phone Unavailable Primary Care Provider Unavailable Encounter Details Date Type Department Care Team Description 01/01/2017 Unscheduled Encounter Hematology/Oncology Derek Christianson Dietary counseling at [facility] FRANKLIN Brito [address] [place] [phone] Social History Tobacco Use Types Packs/Day Years Used Date Former Smoker 11 03 Quit: 2006 Alcohol Use Standard Drinks/Week Comments No 0 (1 standard drink = 0.6 oz pure alcoho l) Sex Assigned at Date Recorded Female 07/03/2021 6:34 PM EDT documented as of this encounter Progress Notes Derek Christianson RD - 01/01/2017 10:27 AM EDT [facility] Initial Dietitian Assessment Seen By: Alisha Christianson MS, RD, PRINT INSPECTOR, LD Referred by: Reason for visit: Patient and diagnosis: Breast ca, L, ILC, gr 2, ER+HI+, Her2 neg, s/p lumpectomy & SNB followed by reexcision, pT2 pN0, stage IIA. Hormonal tx to follow xrt. Assessment: HPI: Patient Active Problem List Diagnosis Code ??? Malignant neoplasm of left female breast C50.912 ??? Cancer of left breast, stage 2 C50.912 Meds: reviewed Labs: NNL Ht: 163.3 cm Wt: Wt Readings from Last 3 Encounters: 12/30/16 83.2 kg (183 lb 6.4 oz) 12/25/16 86.2 kg (190 lb) 12/08/16 83.5 kg (184 lb) Wt Hx: UBW: % UBW: IBW: 53.9 +/- 10% % IBW: BMI: 31.4 ___ Edema ___ Ascites ___Muscle wasting Calorie needs: 1200 Protein needs: 65 Fluid needs: 1.5 - 2L Food Intake: Am: Noon: Pm: Snacks: Supplements/Frequency: ___ Ensure/Plus ___ Boost/Plus ___ CIB ___ Other: Teas, vitamins, or other nutritional supplements: Food allergies or avoidances: Appetite: Nausea: Vomiting: Chewing: Dentition: Swallowing: Taste Changes: Bowels: Food availability/purchasing, meal planning and preparation: Depression: Social Support: pt's primary support is her Edwin of 9 years. Pt has 2 daughters in [place] and her has a daughter and a son in [place] and [place]. Pt has friends in [place]. 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 She has BCBS for insurance. She did not indicate any concerns re finances or insurance. Economic Issues: Physical Activity: Level of Motivation/Readiness to Change: Nutrition Diagnosis: 01/01/17: Met briefly w/ pt before RT and confirmed scheduled to be seen tomorrow. We discussed the concept of food as medicine and the importance of eating small, frequent, calorically dense, protein-rich meals and snacks throughout the day. Also discussed the benefits of light physical activity, 20-30 minutes, most days of the week to help with fatigue, stimulate appetite, and preserve muscle mass during treatment. Nutrition Intervention: ? Increase caloric needs ? Modify diet consistency: ? Increase frequency of meals and snacks ? Need for supplements Nutrition Goals: Educational Handouts provided: Other Recommendations: ? Please reinforce nutrition and physical activity goals ? Reinforce calorie, protein and fluid needs ? Please check with next lab draw ? May benefit from to help with nausea, early satiety, appetite stimulant, painful swallowing with foods and liquids Monitoring and Evaluation: Will follow up with Mr/s in ____ week (s) to re-evaluate. I have provided him/her with my card and contact information should s/he have any questions in the mean time. Thank you for this consult. documented in this encounter Plan of Treatment Not on filedocumented as of this encounter Visit Diagnoses Diagnosis Dietary counseling Dietary surveillance and counseling documented in this encounter
--- OUTSIDE RECORDS SUMMARY | 2022-05-09 01:00 | XMS_ITS | Encounter Summary ---
:1960 Author Organization [facility] Address [address] [place] [address] Care Team Providers Name Role Phone Unavailable Primary Care Provider Unavailable Reason for Visit Reason Comments Radiation Treatment Encounter Details Date Type Department Care Team Description 12/30/2016 Office Visit Radiation Oncology at Shannan Hardy MD Malignant neoplasm of [facility] left female breast, [address] unspecified site of [place], [place] RADIATION ONCOL OGY breast [address] [place] [address] [phone] Social History Tobacco Use Types Packs/Day Years Used Date Former Smoker 1 30 Quit: 2006 Alcohol Use Standard Drinks/Week Comments No 0 (1 standard drink = 0.6 oz pure alcoho l) Sex Assigned at Date Recorded Female 07/03/2021 6:34 PM EDT documented as of this encounter Last Filed Vital Signs Vital Sign Reading Time Taken Comments Blood Pressure 111/67 12/30/2016 11:00 AM EDT Pulse 87 12/30/2016 11:00 AM EDT Temperature 36.9 ??C (98.4 ??F) 12/30/2016 11:00 AM EDT Respiratory Rate 16 12/30/2016 11:00 AM EDT Oxygen Saturation 100% 12/30/2016 11:00 AM EDT Inhaled Oxygen Concentration - - Weight 83.2 kg (183 lb 6.4 oz) 12/30/2016 11:00 AM EDT Height - - Body Mass Index 31.2 12/25/2016 3:32 PM EDT documented in this encounter Progress Notes Medina Hardy MD - 12/30/2016 11:00 AM EDT DIAGNOSIS: Breast ca, L, ILC, gr 2, ER+ID+, Her2 neg, s/p lumpectomy & SNB followed by reexcision, pT2 pN0, stage IIA. Hormonal tx to follow xrt. CURRENT TREATMENT DOSE: 5.32 Gy L breast ANTICIPATED TOTAL DOSE: 42.56 Gy L breast, 52.56 Gy lumpectomy bed Current # of xrt received: 2 Anticipated total # of xrt txs: 20 Evaluation of port verification films: Approved. For details, see electronic film record in [employer]. Changes in Medical Condition: Not taking fish oil omega 3 fatty acid. Pain?: No. Your Medications These changes are accurate as of: 12/30/16 11:26 AM. If you have any questions, ask [...] 2 g by mouth daily. Reported on 12/30/2016 2 g Refills: 0 FLUoxetine 20 mg [...] daily. Indications: hypertension 1 tablet Refills: 0 oxyCODONE 5 mg Tab Commonly known as: ROXICODONE Reported on 12/30/2016 Refills: 0 rizatriptan 10 mg Tab Commonly known as: MAXALT Take 10 mg by mouth as needed for Migraine. Reported on 12/30/2016 10 mg Refills: 0 Flu vacc?: Yes, received this season. P&SH: Smoking? Quit 15 yrs ago. Physical Exam: BP 111/67 Pulse 87 Temp 36.9 ??C (98.4 ??F) Resp 16 Wt 83.2 kg (183 lb 6.4 oz) SpO2 100% BMI 31.2 kg/m2 A&Ox3, NAD. Amb stable. Imagin12/09/16 Dx'ic Rad Interp CTsim: No pulmonary mets. Performance Status: KPS 100% Response to xrt: As expected. Irradiation Related Symptoms: None. Treatment for Symptom Control: Teddy's cream - knows to not apply it w/in 2 hrs prior to xrt. Pain Management: Not needed. Recommendation on Continuing Course of xrt: Cont. ReCTsim 01/13/17 for boost plan. documented in this encounter Plan of Treatment Not on filedocumented as of this encounter Procedures Procedure Name Priority Date/Time Associated Diagnosis Comme nts SURGICAL PATHOLOGY 10/09/2016 12:00 AM Re sults for this SCAN EST procedure are i n the results section. documented in this encounter Results SCAN DOC: SURGICAL PATHOLOGY (10/09/2016 12:00 AM EST) Narrative 10/09/2016 12:00 AM EST This result has an attachment that is no t available. Ordered by an unspecified provider. Scanning Provider MEDIA MGR SCAN EXT ORDR/RSLT documented in this encounter Visit Diagnoses Diagnosis Malignant neoplasm of left female breast , unspecified site of breast documented in this encounter
--- OUTSIDE RECORDS SUMMARY | 2022-05-09 01:00 | XMS_ITS | Encounter Summary ---
:1960 Author Organization [facility] [place] [address] Care Team Providers Name Role Phone Unavailable Primary Care Provider Unavailable Encounter Details Date Type Department Care Team Description 01/02/2017 Clinical Support Hematology/Oncology at Derek Christianson counseling [facility] FRANKLIN Brito [address] [place] [address] Social History Tobacco Use Types Packs/Day Years Used Date Former Smoker 30 Quit: 2006 Alcohol Use Standard Drinks/Week Comments No 0 (1 standard drink = 0.6 oz pure alcoho l) Sex Assigned at Date Recorded Female 07/03/2021 6:34 PM EDT documented as of this encounter Progress Notes Derek Christianson RD - 01/02/2017 10:00 AM EDT [facility] Initial Dietitian Assessment Seen By: Alisha Christianson MS, RD, COO & CO FOUNDER, LD Referred by: Reason for visit: Patient and diagnosis: Breast ca, L, ILC, gr 2, ER+OR+, Her2 neg, s/p lumpectomy & SNB followed by reexcision, pT2 pN0, stage IIA. Hormonal tx to follow xrt. Assessment: HPI: Patient Active Problem List Diagnosis Code ??? Malignant neoplasm of left female breast C50.912 ??? Cancer of left breast, stage 2 C50.912 Meds:reviewed Labs: NNL Ht: 163.3 cm Wt: Wt Readings from Last 3 Encounters: 12/30/16 83.2 kg (183 lb 6.4 oz) 12/25/16 86.2 kg (190 lb) 12/08/16 83.5 kg (184 lb) Wt Hx: UBW: 184 lbs % UBW: IBW: 53.9 +/- 10% % IBW: BMI: 31.4 ___ Edema ___ Ascites ___Muscle wasting Calorie needs: 1200 Protein needs: 65 Fluid needs: 1.5 - 2L Food Intake: Vegetarian. Works third shift. Goes to sleep ~ 10 am - 7 pm. Feels she can easily go casey binge at work. Feels sugar spirals her. Am: May eat before she goes to sleep. But experiences GERD. Noon: Pm: lasagna, salad, small piece of bread. 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 Tyler Dermatitis ??? Aspirin Other (See Comments) Severe abdominal pain ??? Black Pepper Dermatitis ??? Blueberry Dermatitis ??? Clams Dermatitis ??? Malt Extract Other (See Comments) headache ??? Mushroom Dermatitis ??? [place] Dermatitis ??? Other [Unclassified Drug] Dermatitis Lobster causes severe itching ??? Peanut Dermatitis ??? Sesame Dermatitis Appetite: Feels she has lost grasp with intake and starch and sugars Nausea: on occasion - eats oyster crackers or something salty Vomiting: denies Chewing: denies Dentition: Swallowing: feels she chokes a lot things go down the wrong pipe. Taste Changes: denies Bowels: Depends on intake, Food availability/purchasing, meal planning and preparation: does this at the moment. Depression: Social Support: pt's primary support is her Edwin of 9 years. Pt has 2 daughters in [place] and her has a daughter and a son in [place] and [place] [facility] [place]. Pt has friends in [place]. 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 She has BCBS for insurance. She did not indicate any concerns re finances or insurance. Economic Issues: Physical Activity: walks, but depends on the weather. Tries to walk during work, ~ 6000 steps/d Level of Motivation/Readiness to Change: Nutrition Diagnosis: 01/01/17: Met briefly w/ pt before RT and confirmed scheduled to be seen tomorrow. We discussed the concept of food as fuel for metabolism the importance of eating small, frequent, calorically dense, protein-rich meals and snacks throughout the day not only to meet her body's needs, but also to help with weight loss. Also discussed the benefits of physical activity, 20-30 minutes, most days of the week to help with fatigue, stimulate appetite, and preserve muscle mass during treatment. While she is on treatment, robin discussed healthy weight loss parameters of no greater that 2 pounds of loss/week. Reviewed healthy eating web sources (ie.Kuailexue) and food journals (i.e.: [employer].SpectrumDNA, [employer].SpectrumDNA, fooducate.SpectrumDNA, Giftindia24x7.com.SpectrumDNA). Reviewed ACS' survivorship guidelines for reducing risk of cancer recurrance: -- Obtain and maintain a healthy weight. -- Physical activity: 150 min/wk of moderate-vigorous physical activity with 2 days resistance/strength training. -- Adopt a plant-based diet: this would include lean meat sources (fish, skinless poultry, eggs, low-fat dairy), fruits, vegetables, and whole grains. Minimize processed foods. -- Dietary Fat Restriction - the WINS study showed a 10% decreased risk of breast cancer recurrencein women with ER positive breast cancer who were randomized to cut their dietary fat intake from 30%to 20% of calories as fat -- Alcohol in moderation (one drink for women, 1-2 for males/d) -- Soy is safe to consume, yet choose foods in whole, most-complete form (i.e. Soy milk, tofu, edemame) -- Daily multivitamin use is also safe. -- Vitamin D3 levels has been shown to be low in BrCa patients, thus recommended getting levels checked (either by PCP or oncologists) supplementing 1,000 IU/d and then retesting levels, if suboptimal in 3-6 mos. The [facility] series from [facility] May 2009 showed a lower risk of breast cancer recurrence in women with 25-hydroxy Vitamin D levels of 35 ng/mL or higher. Educational materials provided: --ON_DPG: Soy and Breast Cancer -- ON_DPG: Flax and Breast Cancer -- ON_DPG:Sugar and Cancer -- Protein needs and sources -- Nutrition for Breast Cancer Survivors -- National Osteoporosis Foundation: A Guide to ca-rich foods (https://www.nof.org/patients/treatment /calciumvitamin-d/y-ergts-cz-ibuiudz-bhfc-ldefs/) Nutrition Intervention: ? Increase caloric needs ? Modify diet consistency: ? Increase frequency of meals and snacks ? Need for supplements Nutrition Goals: Educational Handouts provided: Other Recommendations: ? Monitoring and Evaluation: Will follow up with krishna Mccall I have provided her with my card and contact information should she have any questions in the mean time. Thank you for this consult. documented in this encounter Plan of Treatment Not on filedocumented as of this encounter Visit Diagnoses Diagnosis Dietary counseling Dietary surveillance and counseling documented in this encounter
--- OUTSIDE RECORDS SUMMARY | 2022-05-09 01:01 | XMS_ITS | Encounter Summary ---
:1960 Author Organization [facility] Address [address] [place] [address] Care Team Providers Name Role Phone Jessica Salinas NP Primary Care Provider Encounter Details Date Type Department Care Team Description 10/08/2016 Hospital Encounter [facility] Unknown, Pro Anuradha nugent MD [address] [facility] [phone] [place] [address] (Work) [phone] Social History Tobacco Use Types Packs/Day Years Used Date Never Assessed Sex Assigned at Date Recorded Not on file documented as of this encounter Discharge Disposition Disposition Code Departure Means Destination Home or Self Skilled Nursing documented in this encounter Plan of Treatment Not on filedocumented as of this encounter Visit Diagnoses Not on filedocumented in this encounter Care Teams Supervisor Accounting Clerks Relationship Specialty Start Date End Date Jessica Salinas NP PCP - General 08/25/[address] [place] [address] documented as of this encounter
--- OUTSIDE RECORDS SUMMARY | 2022-05-09 01:01 | XMS_ITS | Clinical Summary ---
:1960 Author Organization [facility] Address [address] [place] [address] Care Team Providers Name Role Phone Jessica Salinas NP Primary Care Provider Social History Tobacco Use Types Packs/Day Years Used Date Never Assessed Sex Assigned at Date Recorded Not on file Plan of Treatment Not on file Care Teams Executive Admin Relationship Specialty Start Date End Date Jessica Salinas, SUSANA PCP - General 08/25/[address] [place], [place] [id number]
--- OUTSIDE RECORDS SUMMARY | 2022-05-09 01:01 | XMS_ITS | Encounter Summary ---
:1960 Author Organization [facility] Address [address] [place] [address] Care Team Providers Name Role Phone Jessica Salinas NP Primary Care Provider Encounter Details Date Type Department Care Team Description 11/10/2016 Hospital Encounter [facility] Unknown, Provider, [facility] [address] [facility] [phone] [place] [address] (Work) [phone] Social History Tobacco Use Types Packs/Day Years Used Date Never Assessed Sex Assigned at Date Recorded Not on file documented as of this encounter Discharge Disposition Disposition Code Departure Means Destination Home or Self [place] documented in this encounter Plan of Treatment Not on filedocumented as of this encounter Visit Diagnoses Not on filedocumented in this encounter Care Teams Compliance Professional Relationship Specialty Start Date End Date Jessica Salinas NP PCP - General 08/25/[address] [place] [address] documented as of this encounter
--- OUTSIDE RECORDS SUMMARY | 2022-05-09 01:01 | XMS_ITS | Encounter Summary ---
:1960 Author Organization [facility] Address [address] [place] [address] Care Team Providers Name Role Phone Unknown, Provider Primary Care Provider Encounter Details Date Type Department Care Team Description 11/19/2015 Results Only [facility] Cirilo Ascencio MD [phone] [place] [address] Social History Tobacco Use Types Packs/Day Years Used Date Never Assessed Sex Assigned at Date Recorded Not on file documented as of this encounter Plan of Treatment Not on filedocumented as of this encounter Procedures Procedure Name Priority Date/Time Associated Diagnosis Comme nts PAP TEST- RESULT Routine 11/19/2015 0:00 EST Resu lts for this ONLY procedure are i n the results section. documented in this encounter Results PAP TEST- RESULT ONLY (11/19/2015 0:00 EST) Pathology Report: CYTOPATHOLOGY REPORT [facility] Reports generated via electronic interface contain ritchie ginal data; SERVICES however they are lacking the format of the original re port. Caution should be taken when reading/interpreting unfo rmatted reports. Name: ? STEFANY ZHENG ? Accession #: ? [id number] ? : ? 1960 (Age: 55 ) ??F ?Collect Date: ? 11/19/2015 ? Location: ? [facility] ? Receive Date: ? 11/20/19 16 ? Provider: CIRILO ASCENCIO MD Copy to: SEGUNDO LORENZANA MD ? Final Report SPECIMEN ADEQUACY ? Satisfactory for Evaluation - transformation zone component absent GENERAL CATEGORIZATION ? Negative for Intraepithelial Lesion or Malignan cy ?? Treatment History: LEEP: H/o remotely Cryotherapy: h/o Other: Additional clinical information: last pap 2014 neg in [place]. Specimen/Source: ??Pap Test, Cervix, ThinPrep Imaging System with manual evaluation Document reviewed and electronically signed by: ? Johnathan Narvaez, CT(ASCP) ? Report ??Date: 11/28/2015 14:31 HPV with Pap Test ? Date Ordered: ? 11/27/2015 ? Status: ?? Signed Out ?Date Complete: ? 11/30/2015 ? By: ??Sy stem Interface ? Date Reported: ? 11/30/2015 ? Interpretation RESULT: Negative for HPV. No E6 or E7 mRNA is detected from HPV types 16,18,31,3 3,35, 39,45,51,52,56,58,59,66, and 68 by vp digital marketing social media and crm media mirian amplification. Comments Document reviewed and electronically signed by: ? System Interface ? Report date: 11/30/2015 By the signature above, the attending physician certif ies that he/she has personally conducted a gross and/or microscopic examin ation of the described specimens and rendered or confirmed the above diagnosi s. End of Report Specimen Performing Organization Address City/State/ZIP Code Phon e Number [facility] [address] [place] [address] SERVICES documented in this encounter Visit Diagnoses Not on filedocumented in this encounter Care Teams Atomic Process Engineer Relationship Specialty Start Date End Date Unknown, Provider, PCP - General 11/20/15 08/24/16 documented as of this encounter
--- OUTSIDE RECORDS SUMMARY | 2022-05-09 01:01 | XMS_ITS | Encounter Summary ---
:1960 Author Organization [facility] Address [address] [place] [address] Care Team Providers Name Role Phone NathanzechariahJessica menard SUSANA Primary Care Provider Encounter Details Date Type Department Care Team Description 10/27/[address] [facility] Ruslan Dawson, [address] [address] (Wo rk) Social History Tobacco Use Types Packs/Day Years Used Date Never Assessed Sex Assigned at Date Recorded Not on file documented as of this encounter Plan of Treatment Not on filedocumented as of this encounter Procedures Procedure Name Priority Date/Time Associated Diagnosis Comme [facility] SURGICAL PATHOLOGY Routine 10/27/2017 10:09 Resul ts for this EST procedure are i n the results section. documented in this encounter Results SURGICAL PATHOLOGY (10/27/2017 10:09 EST) Pathology Report: SURGICAL PATHOLOGY REPORT [facility] Reports generated via electronic interface contain ritchie ginal data; LABORATORY however they are lacking the format of the original re port. SERVICES Caution should be taken when reading/interpreting unfo rmatted reports. Name: ? STEFANY ZHENG ? Accession #: ? [id number] ? : ? 1960 (Age: 57 ) ??F ? Collect Date: ? 10/27/2017 ? Location: ? [facility] ? Receive Date: ? 10/27/19 18 ? Provider: RUSLAN DAWSON MD Copy to: GAYLE WELLINGTON DO ? Final Pathologic Diagnosis: GALLBLADDER, CHOLECYSTECTOMY: - Chronic cholecystitis and cholelithiasis. Document reviewed and electronically signed by: JAYLEN CORLEY MD Report ??Date: 10/30/2017 10:30 By the signature above, the attending physician certif ies that he/she has personally conducted a gross and/or microscopic examin ation of the described specimens and rendered or confirmed the above diagnosi s. Specimen(s) Received: Gallbladder and stones Clinical History: Cholelithiasis Gross Description: ? Received in formalin labelled with proper patient identification (initials P, A) and gallbladder and s tones is a previously opened gallbladder (8.7 x 2.7 x 2.2 cm). The cystic duct margin is inked black. ? The serosa is romo-wright and wrinkled with a moderate amount of attached yellow lobulated adipose tissue. The mucosa is romo-bro wn bile stained green, soft and velvety with an average thickne ss of 0.2 cm. The cystic duct lumen is dilated and obstructed. Within the cavit y and container are multiple yellow to brown multifaceted gallstones (6.7 x 5.8 x 2.1 cm). The cystic duct margin, en face, and two cross sections are submitted in 1. JOSSY Zamora (ASCP) 10/28/2017 10:55 AM End of Report Specimen Performing Organization Address City/State/ZIP Code Phon e Number [facility] [address] [place] [address] SERVICES documented in this encounter Visit Diagnoses Not on filedocumented in this encounter Care Teams Adjunct Faculty Relationship Specialty Start Date End Date Jessica Salinas NP PCP - General 08/25/[address] [place], [place] [address] documented as of this encounter
--- OUTSIDE RECORDS SUMMARY | 2022-05-09 01:01 | XMS_ITS | Encounter Summary ---
:1960 Author Organization [facility] Address [address] [place] [address] Care Team Providers Name Role Phone Jessica Salinas NP Primary Care Provider Encounter Details Date Type Department Care Team Description 10/27/2017 Hospital Encounter [facility] Unknown, Provider, [facility] [address] [facility] [phone] [place] [address] (Work) [phone] Social History Tobacco Use Types Packs/Day Years Used Date Never Assessed Sex Assigned at Date Recorded Not on file documented as of this encounter Discharge Disposition Disposition Code Departure Means Destination Home or Self Prison documented in this encounter Plan of Treatment Not on filedocumented as of this encounter Visit Diagnoses Not on filedocumented in this encounter Care Teams Manager Rfid Relationship Specialty Start Date End Date Jessica Salinas NP PCP - General 08/25/[address] [place] [address] documented as of this encounter
--- OUTSIDE RECORDS SUMMARY | 2022-05-09 01:01 | XMS_ITS | Encounter Summary ---
:1960 Author Organization [facility] Address [address] [place] [address] Care Team Providers Name Role Phone Unknown, Provider Primary Care Provider Encounter Details Date Type Department Care Team Description 08/22/2016 Results Only [facility]- Ruslan Conner, [address] [place] [address] [phone] (Wo rk) Social History Tobacco Use Types Packs/Day Years Used Date Never Assessed Sex Assigned at Date Recorded Not on file documented as of this encounter Plan of Treatment Not on filedocumented as of this encounter Procedures Procedure Name Priority Date/Time Associated Diagnosis Comme [facility] SURGICAL PATHOLOGY Routine 08/22/2016 5:33 EST Re sults for this procedure are i n the results section. documented in this encounter Results SURGICAL PATHOLOGY (08/22/2016 5:33 EST) Pathology SURGICAL PATHOLOGY REPORT [facility] MEDICAL Report: CENTER Reports generated via electronic interface contain ritchie ginal data; LABORATORY however they are lacking the format of the original re port. SERVICES Caution should be taken when reading/interpreting unfo rmatted reports. Name: ? STEFANY ZHENG ? Accession #: ? [id number] ? : ? 1960 (Age: 56 ) ??F ?Collect Da te: ? 08/22/2016 ? Location: ? [facility] ? Receive Date: ? 016 ? Provider: RUSLAN DAWSON MD Copy to: YASMEEN CARDOZO [employer] ? Final Pathologic Diagnosis: BREAST, LEFT, CORE NEEDLE BIOPSY: - Adenocarcinoma, invasive, lobular type, nuclear grad e I. See comment. ? - Invasive carcinoma insinuates into surroundin g adipose tissue. - Small fragment of skeletal muscle is identified. ?? Comment: Estrogen and progesterone re ceptor assays and Her2 studies have been ordered on block 1 and results will be issued in separate procedu re reports. (Dr. Spencer)/mpl ? Document reviewed and electronically signed by: ? WILFRID LAYNE MD ? Report ??Date: 08/26/2016 13:11 By the signature above, the attending physician certif ies that he/she has personally conducted a gross and/or microscopic examin ation of the described specimens and rendered or confirmed the above diagnosi s. Clinical History: Left breast lesion ? Gross Description: ? Received in formalin labelled with proper patient identification (initials A, P) and L breast core nee dle bx are five yellow-white firm fibrofatty tissue cores (1.2 cm to 1.7 cm in length, and each 0.2 cm in diameter). Entirely submitted in blocks 1 and 2. Time removed from patient: 08/22/2016 at 1455 hrs Time placed in formalin: 08/22/2016 at 1455 hrs Time out of formalin: 08/25/2016 at 0900 hrs JOSSY Mccabe (ASCP) 08/25/2016 8:18 AM ? ESTROGEN AND PROGESTERONE RECEPTOR IMMUNOPEROXIDASE ST AINS ? Date Ordered: ? 08/26/2016 ? Status: ?? Signed Out ?Date Complete: ? 08/26/2016 ? By: ??Eris Jones ? Date Reported: ? 08/26/2016 ? Interpretation BREAST, LEFT, CORE NEEDLE BIOPSY: - Adenocarcinoma, invasive. - Positive for estrogen receptors (in greater than 90% of tumor cells). - Nuclear staining intensity: Strong. - Positive for progesterone receptors (in 40% of tumor cells). - Nuclear staining intensity: ??Strong. Comment Cold ischemic time and total formalin fixation time ap propriate: Yes. ? Description Tissue submitted: Paraffin embedded tissue block label led [id number] (#1, #2) from [facility]. Immunohistochemical assays for estrogen receptors (SP1 , [place]) and progesterone receptors (16, [place]) have been performed on this specimen. Intranuclear receptor comple xes were visualized on tissue sections using an HRP polymer immunohistochemical technique. ??This assay is intended for paraffin-embedded tissue fix ed in 10% neutral buffered formalin for 6-72 hours. ? Results are reported as negative (<1% nuclear staining ) or positive with the proportion of positive cells noted. ??Estrogen recepto r expression in <5% of tumor cells may not have a s michael interaction with estrogen receptor modulators such as Tamoxifen. ?? Reference: ??ASCO-CAP Guidel ine Recommendations for IHC testing of ER and [place]. J Clin Oncol 2010;28:0882-8762. NOTE: ??One or more of the reagents used in immunohistochemical testing in this case may not have been cleared or approved by the U.S. Food and Drug Administration (FDA). ??The FDA has determined that such clearance or approval is not necessary. ??These tests are used for clinical purposes. ??They should not be regarded as investigational or for research. ??These r eagents' performance characteristics have been determined by [facility]. This laboratory is certified under the Clinical Labora tory Improvement Amendments of 1988 (CLIA-88) as qualified to per form high complexity clinical laboratory testing. Document reviewed and electronically signed by: ? WILFRID LAYNE MD ? Report date: 08/26/2016 By the signature above, the attending physician certif ies that he/she has personally conducted a gross and/or microscopic examin ation of the described specimens and rendered or confirmed the above diagnosi s. Her 2 IMMUNOPEROXIDASE REPORT ? Date Ordered: ? 08/27/2016 ? Status: ?? Signed Out ?Date Complete: ? 08/27/2016 ? By: ??Eris Jones ? Date Reported: ? 08/27/2016 ? Interpretation ASSAY RESULTS Her2 SCORE: ?1+ TUMOR LOCATION: ??Left breast, not otherwise specified CELLS WITH COMPLETE MEMBRANE STAINING: ??None MEMBRANE STAINING INTENSITY: ??Faint PARTIAL MEMBRANE STAINING: ??Present in 10% of cells CYTOPLASMIC STAINING: Faint STAINING PATTERN: ??Heterogeneous STAINING IN BENIGN EPITHELIUM: N/A THE HER2 ASSAY PERFORMED IS INTERPRETED NEGATIVE. Description Tissue submitted: Paraffin embedded tissue block labelled [id number] (#1) from [facility]. Fixative: ??Formalin ??(This immunohistochemical assay is intended for paraffin-embedded tissue fix ed in 10% neutral buffered formalin for 6-72 hours; 18-24 hours with maximum tis brett thickness of 3-4 millimeters is recommended for best assay performance. ??He r2 should not be performed on alcohol fixed tissues.) The assay was performed under appropriate conditions a ccording to the erp manager's instructions with appropriate assay and tissue controls using an Anti-Her2 (4B5) Rabbit Monoclonal Antibody ([place]). Her2 IHC Scoring Guidelines (invasive tumor component only) 0 ? negative ?No staining or membrane staining in less than 10% of cells 1+ ? negative ?Faint partial membrane staining in more than 10% of cells 2+ ? weakly positive ?Moderate complete membrane staining in more than 10% of cells 3+ ? positive ? Strong complete membrane staining in more than 10% of cells Reference: ??ASCO-CAP Recomm endations for Her2 Testing. J Clin Oncol 2013; epub (www.jco.org Jul 11, 2013) Document reviewed and electronically signed by: ? WILFRID LAYNE MD ? Report date: 08/27/2016 By the signature above, the attending physician certif ies that he/she has personally conducted a gross and/or microscopic examin ation of the described specimens and rendered or confirmed the above diagnosi s. Her2 GENE AMPLIFICATION BY IN-SITU HYBRIDIZATION (RAYRAY) ? Date Ordered: ? 08/27/2016 ? Status: ?? Signed Out ?Date Complete: ? 08/27/2016 ? By: ??Eris Jones ? Date Reported: ? 08/27/2016 ? Interpretation Description Tissue submitted: Paraffin embedded tissue block labelled [id number] (#1) from [facility]. ? Specimen type: ??Breast, core biopsy An in-situ hybridization (IS H) assay for Her2 gene amplification status ([employer] INFORM dual RAYRAY DNA probe) was performed on this speci men. ??The assay was performed under appropriate conditions according to [facility] erp manager's instructions with appropriate assay and tissue controls. ??A Her2 target probe and a Chromosome 17 control probe are both enumerated in twenty tumor cell nuclei and a Her2/Chr17 rati o is calculated. ??Results are generally reported as amplified (ratio >2.0) or no n-amplified (ratio <2.0). ??When initial results are inconclusive (ratio 1.9 ??2. 2), an minimum additional 20 nuclei are enumerated. Her2 and Chr17 average signa ls per cell and the Her2/Chr17 ratio are considered for the final interpretation . ??The assay is intended for use with formalin-fixed (6-72 hours), paraffin-embedded breast cancer specimen s. Reference: ??ASCO-CAP Recomm endations for Her2 Testing. ??J Clin Oncol 2013; epub (www.jco.org Jul 11, 2013) Results: Her2/Chr17 ratio: 1.43 Average Her2 signals per tumor cell nucleus: ? 1.6 5 Average Chr17 signals per tumor cell nucleus: ? 1. 15 Tumor location: ?Left breast, not otherwi se specified Interpretation: ?Non-amplified The invasive tumor nuclei have no evidence of Her2 gen e amplification. ??The results suggest the tumor has two copies of chromosome 17 with a normal Her2 gene copy number. ?? (Dr. Layne)/mpl Document reviewed and electronically signed by: ? WILFRID LAYNE MD ? Report date: 08/27/2016 By the signature above, the attending physician certif ies that he/she has personally conducted a gross and/or microscopic examin ation of the described specimens and rendered or confirmed the above diagnosi s. End of Report Specimen Performing Organization Address City/State/ZIP Code Phon e Number [facility] [address] [place] [address] SERVICES documented in this encounter Visit Diagnoses Not on filedocumented in this encounter Care Teams Hide Curer Relationship Specialty Start Date End Date Unknown, Provider, PCP - General 11/20/15 08/24/16 documented as of this encounter
--- OUTSIDE RECORDS SUMMARY | 2022-05-09 01:01 | XMS_ITS | Encounter Summary ---
:1960 Author Organization [facility] Address [address] [place] [address] Care Team Providers Name Role Phone SatishtonotajYasmeen SUSANA Primary Care Provider Encounter Details Date Type Department Care Team Description 10/08/2016 Results Only [facility] Ruslan Dawson, [address] [address] (Wo rk) Social History Tobacco Use Types Packs/Day Years Used Date Never Assessed Sex Assigned at Date Recorded Not on file documented as of this encounter Plan of Treatment Not on filedocumented as of this encounter Procedures Procedure Name Priority Date/Time Associated Diagnosis Comme [facility] SURGICAL PATHOLOGY Routine 10/08/2016 19:49 Resul ts for this EST procedure are i n the results section. documented in this encounter Results SURGICAL PATHOLOGY (10/08/2016 19:49 EST) Pathology SURGICAL PATHOLOGY REPORT [facility] MEDICAL Report: [facility] Reports generated via electronic interface contain ritchie ginal data; SERVICES however they are lacking the format of the original re port. Caution should be taken when reading/interpreting unfo rmatted reports. Name: ? STEFANY ZHENG ? Accession #: ? [id number] ? : ? 1960 (Age: 56 ) ??F ?Collect Date: ? 2016 ? Location: ? [facility] ? Receive Date: ? Provider: RUSLAN DAWSON MD Copy to: YASMEEN RANDHAWA MD ? Final Pathologic Diagnosis: ? SUMMARY DIAGNOSIS FOR MALIGNANT BREAST TUMORS AJCC (7th edition): pT2 pN0 Laterality: ?Left ? Specimen: ?Wire localization excisional biop sy Tumor Type: ?Invasive lobular Tumor Size: ?2.1 x 1.8 x 1.2 cm Tumor Location: ? Not specified [place] Combined Histologic Scores: ? Tubules: ?3 ? Nuclei: ?1 ? Mitotic Rate: ? 1 (actual count <1/ 10 HPF with field diameter of 0.54 mm) ? Total: ?5 Differentiation: ? Well Margins: ?Positive (lateral) DCIS: ? Not identified % DCIS: ?N/A DCIS margins: ?? N/A LVI: ? Not identified Lymph nodes: ?0/4 (positive/total count) ? ER/AR: ?ER positive (>90%); AR positive (40% ) ([id number]) Her2/claudette: ? 1+/negative (by immunohistochemistr y) ([id number]), ?Non-amplif ied (by In-Situ Hybridization; Her2/Chr17 ratio 1.43) ([id number]) ? FINAL PATHOLOGIC DIAGNOSIS: A. ?BREAST, LEFT, WIRE LOCALIZATION EXCIS IONAL BIOPSY: 1. ?Adenocarcin xiomy, invasive, lobular type, well differentiated. ??See comment. - ?Specimen integrity: Intact. - ?Tumor location: Not specified. - ?Tumor position: Not specified. - ?Tumor focality: Indeterminate. - ?Tumor measur es 2.1 cm in greatest dimension (AJCC: pT2, pN0(sn)). - ?Surgical resection margin positive ; i nvasive tumor present: - ?At lateral margin (A13, A14). - ?Extent of margin involvement: Focal. - ?0.5 mm from anterior margin (A4). - ?2 mm from posterior margin (A2). - ?Greater than 1 cm from remaining surjit ns. - ?Lymphatic vascular invasion not identi fied. - ?Perineural invasion present 2. ?Ductal carcinoma in situ (DCIS) not i dentified. 3. ?Fibrocystic changes including: - ?Atypical lobular hyperplasia. - ?Usual ductal hyperplasia. - ?Microcysts. - ?Interlobular fibrosis. 4. ?Microcalcifications ass ociated with invasive tumor and benign ductules. 5. ?Prior biopsy site identified. B. ?LYMPH NODE, SENTINEL, L ATERALITY NOT SPECIFIED, #1, EXCISION: 1. ?1 lymph node negative for malignancy (0/1). C. ?LYMPH NODE, SENTINEL, LATERALITY NOT SPECIFIED, #2, EXCISION : 1. ?3 lymph nodes negative for malignancy (0/3). Comment: Histologic sections show a main tumor mass measuring 2 .1 cm in greatest dimension which is present in levels 4-11. There is a 0.8 mm focus of discohesive cells which are crushed and extensively cauterized in level 16 (A13, A14). The architecture and t he positive keratin AE1/AE3 stain confirm that these cells are invasive lobular adenocarcinoma. This focus is transected at the lateral margin. It is unclear whether th is represents multifocal disease or if the tumor has a complex architecture. Clinical correla tion is recommended. Rat Farmer slides were shown at our intradepartmen patt consultation conference. Immunoperoxidase staining wa s performed on this case to further characterize the lesion. ? ANTIBODY(CLONE)(BLOCK):RESULT Keratin AE1-AE3 (AE1-AE3, [facility]) (A13, A14): Positive in the area of interest ? NOTE: ??One or more of the reagents used in imm unoperoxidase testing in this case may not have been cleared or approved by the U.S. Food and Drug Administration (FDA). ??The FDA has determined that such clearance or approval is not necessary. ??These tests are used for clinical purposes. ??They should not be regarded as investigational or for research. ??These r eagents' performance characteristics have been determined by the [facility]. ??The positive and negative controls worked ap propriately. ??If immunoperoxidase staining has been performed on alcoho l fixed cytology specimens, which has not bee n fully validated, the assays should be interpreted with caution and correlated with clinica l data. ??This laboratory is certified under the Clinical Laboratory Improvement Amendments o f 1988 (CLIA-88) as qualified to perform high complexity clinical laborato ry testing. ? Document reviewed and electronically signed by: ? JESSICA THIBODEAUX MD ? Report ??Date: 10/20/2016 17:21 By the signature above, the attending physician certif ies that he/she has personally conducted a gross and/or microscopic examin ation of the described specimens and rendered or confirmed the above diagnosi s. Clinical History: Breast cancer ? Gross Description: A. ?Received in formalin labelled with proper p atient identification (initials A, P) and left breast mass is an oriented portion of fibrofatty tissue (120 g, 7.2 cm superior to inferi or x 8.8 cm medial to lateral x 3.8 cm anterior to posterior). There is a needle localization wire entering the anterior aspect of the speci men. ??The specimen is sectioned from medial (level 1) to lateral (level 16). ? In levels 4-11, there is a romo-wh ite mass (2.1 x 1.8 x 1.2 cm) with ill defined stellate borders. ?? The mass is 0.1 cm from the nearest anterior margin, 0.3 cm from the posterior margin, 0.8 cm from the medi al margin, and greater than 1.0 cm from all remaini ng margins. A biopsy site is identified in levels 6 and 7; however, a biopsy clip is not seen. ? The remaining cut cary face is composed of lobulated adipose tissue with a scant amount of wright-white fibrous tissue. ? Rat Farmer sections are submitted as follow s: INK MITCHELL Yellow-anterior Black-posterior Blue-superior Green-inferior ? Red-medial Merrick-lateral ? BLOCK MITCHELL A1- ??level 5, middle third A2-A3- ??level 7, middle third, bisected A4-A5- ??level 9, middle third, bisected, including cl osest anterior margin A6- ??level 9, inferior third ?? A7-A8- ??level 9, superior third, bisected A9-A12- ??level 1, perpendicular A13-A14- ??level 16, perpendicular Time removed from patient: 10/08/2016 at 1220 hrs Time in formalin: 10/08/2016 at 1220 hrs Time out of formalin: ??10/10/2016 at 1900 hrs B. ?Received in formalin labelled with proper p atient identification (initials A, P) and sentine l lymph node #1 is a single lymph node (1.8 x 1.0 x 1.0 cm). The node is serially sectioned and entirely s ubmitted as B1 and B2. C. ?Received in formalin labelled with proper p atient identification (initials A, P) and sentinel lymph node #2 is a portion of fibrofatty tissue (2.5 x 2.5 x 1.0 cm), within which three probable lymp h nodes are identified (0.3 x 0.3 x 0.3 cm to 0.4 x 0.2 x 0.2 cm). The largest nodes are sectioned and the cut surfaces are unremarkable. The lymph nodes are entirely submitted as follows: BLOCK MITCHELL C1- ??one probable lymph node C2- ??one probable lymph node, bisected C3- ??one probable lymph node, bisected Dr. Bazzi 10/10/2016 3:59 PM ? ONCOTYPE DX ASSAY ? Date Ordered: ? 12/15/2016 ? Status: ?? Signed Out ?Date Complete: ? 12/25/2016 ? By: ??Carl Jones ? Date Reported: ? 12/26/2016 ? Interpretation Description Oncotype DX assay performed by [facility] The OncotypeDX breast cancer assay was r equested by the patient and Dr. Walter Randhawa. ??The assay is inten ded for newly diagnosed patients with Stage I or II, node negative, estrogen rece ptor positive breast cancer. ??The assay uses RT-PCR to determine the expression of 21 genes in formalin-fi xed paraffin-embedded tumor tissue. A paraffin-embedded tissue block ([id number] (A2)) was se nt to [employer] for testing. ??The reported recurrence sc ore was 15. ??In a validation study, patients w ith the same recurrence score treated with Tamoxifen had an average rate of dista nt recurrence at 10 years of 10% (95% CI: 7 to 12%). This patient's 95% confiden ce intervals for 10-year recurrence risk overlap the 95% confidence intervals for the low risk (4-10%) and intermediate risk (8-20%) groups and the ranges for the low risk (3-11%) a nd intermediate risk (11-21%) groups. The reported recurrence score places this patient in t he low recurrence risk group. ?? Document reviewed and electronically signed by: ? CHRISTINA THOMAS MD ? Report date: 12/26/2016 By the signature above, the attending physician certif ies that he/she has personally conducted a gross and/or microscopic examin ation of the described specimens and rendered or confirmed the above diagnosi s. End of Report Specimen Performing Organization Address City/State/ZIP Code Phon e Number [facility] [address] [place] [address] SERVICES documented in this encounter Visit Diagnoses Not on filedocumented in this encounter Care Teams Fly Raiser Lockstitch Relationship Specialty Start Date End Date Yasmeen Salinas NP PCP - General 08/25/16 [address] [place], [place] [address] documented as of this encounter
== END ==
PROVIDERS: PCP Family Medicine; Visit Provider Nurse Practitioner Family
DX: Z13.1 Encounter for screening for diabetes mellitus (principal); R92.8 Other abnormal and inconclusive findings on diagnostic imaging of breast; Z85.3 Personal history of malignant neoplasm of breast; R92.1 Mammographic calcification found on diagnostic imaging of breast; Z98.890 Other specified postprocedural states
CPT/HCPCS: 76642; 77063; 77067

== ENCOUNTER 2022-08-12 01:42 | Outpatient (CLI) | payer BC, SELFPAY ==
--- NOTE | 2022-08-12 07:15 | DI.MAMMO_ITS ---
Exam(s) MAMMO DIAGNOSTIC UNI EXAM: MAMMO DIAGNOSTIC UNI CLINICAL HISTORY: 3 mo f/u,S/P LT BREAST CA, R92.8. TECHNIQUE: Craniocaudal and mediolateral oblique Full Field Digital Mammography views of the left br east with Computer Aided Diagnosis followed by Tomosynthesis. COMPARISON: Comparison is made with prior examinations. FINDINGS: Mammography/Tomosynthesis: Masses/Architectural Distortion: The patient is status post left lumpectomy. Microcalcifictions: No suspicious pleomorphic-type are seen. There are stable calcifications seen in the upper left breast. Skin Thickening/Nipple Retraction: None. IMPRESSION: 1. No evidence of malignancy is noted. 2. Unless there is more urgent need, follow-up screening mammography is recommended, as per [place] [employer] guidelines. 3. The findings were discussed with the patient on the date of the examination. BI-RADS Category 2 - Benign Findings Breast Density - Category B - Scattered areas of fibroglandular density Breast density Category C or D implies that the patient has dense breast tissue. Dense breast tissue can make it harder to find cancer on a mammogram. Dense breast tissue is also associated with an incr eased risk of breast cancer. This information about the result of the mammogram report was provided to the patient to raise their awareness. Use this report when you speak with the patient about their risks for breast cancer, which includes their family history. At that time, you may recommend additional screening tests (Ultrasoun d or MRI) as these tests may add significant information. A negative radiographic report should not delay biopsy if a dominant or clinically suspicious mass is present. Up to ten percent of cancers are not identified on mammography. A negative report may reinforce clinical impression. Adenosis and dense breasts may obscure an underlying neoplasm. False positive reports average 6 to 10%. Patient will receive a letter notifying them of these results.
== END 2022-08-12 02:02 ==
LOC: DI 01:45
PROVIDERS: PCP Family Medicine; Visit Provider Nurse Practitioner Family
DX: R92.8 Other abnormal and inconclusive findings on diagnostic imaging of breast (principal)
CPT/HCPCS: 77061; 77065; G0279

== ENCOUNTER 2022-12-30 17:24 | Emergency (ER) | payer BC, SELFPAY ==
[2022-12-30] VITALS (12 sets, daily range): BP systolic 111–132; BP diastolic 61–75; PULSE 79–94; RESP 13–22; TEMP 36.9; O2SAT 91–99
--- NOTE | 2022-12-30 17:30 | RT.EKG_ITS ---
APPROVED REPORT Exam: Resting ECG Reason for Exam: EPIGASTRIC PAIN Patient Location: E HR:87 bpm ECG Measurements Heart Rate 87 AXIS CO 166 P 64 QRSd 74 QRS 18 QT 358 T 55 QTc 430 Conclusion Sinus rhythm...normal P axis, V-rate 60- 99
[2022-12-30] MEDS: Prochlorperazine 10 MG/2 ML VIAL 5 MG IVP (18:04)
[2022-12-30] MEDS: diphenhydrAMINE 50 MG/ML VIAL 25 MG IVP (18:05)
[2022-12-30] MEDS: FAMOTIDINE 20 MG in Normal Saline 100 ML 400 MG IVPB (18:05)
[2022-12-30] MEDS: Lactated Ringers 1,000 ML 1000 ML IV (18:06)
[2022-12-30 18:13] LABS: Abs Immature Grans 0.05 10^3/uL (0.0-0.06); Absolute Basophil Count 0.05 10^3/uL (0.0-0.2); Absolute Eosinophil Count 0.09 10^3/uL (0.0-0.7); Basophils % 0.3; Eosinophils % 0.5; HCT 44.6 % (36.0-46.0); Immature Grans % 0.3; Lymphocytes % 14.5; MCHC 33.6 % (32.0-36.0); MCV 83 fL (80-95); MPV 8.9 fL (8.0-11.0); Monocytes % 6.8; Neutrophils % 77.6; Platelet Count 284 10^3/uL (130-400); RBC 5.35 10^6/uL (3.93-5.22); RDW-SD 39.5 fL; WBC 17.88 10^3/uL (4.4-10.8)
--- NOTE | 2022-12-30 18:15 | DI.RAD_ITS ---
Exam(s) XR CHEST 2V PA LATERAL EXAM: XR CHEST 2V PA LATERAL CLINICAL HISTORY: epigastric pain TECHNIQUE: 2D digital imaging was performed of the chest. Two images were obtained. PA and lateral views were obtained. COMPARISON: No exams were available for comparison FINDINGS: MEDIASTINUM: Normal. HEART: Normal. PULMONARY VASCULATURE: Normal. LUNGS: Clear. PLEURAL SPACE: No pleural effusion or pneumothorax. BONE:Within normal limits for the patient's age. OTHER FINDINGS:Normal. IMPRESSION: No acute pulmonary findings. DATA REPOSITORY: RADIATION DOSE DELIVERED:
--- NOTE | 2022-12-30 18:15 | DI.CT_ITS ---
Exam(s) CT ABDOMEN PELVIS W EXAM: CT ABDOMEN PELVIS W CLINICAL HISTORY: epigastric pain, leukocytosis TECHNIQUE: Imaging Protocol: Axial computed tomography images with coronal and sagittal reformatted images were created and reviewed CONTRAST MATERIAL: Intravenous: Omnipaque 350 Contrast volume:31 mL Oral: No COMPARISON: No exams were available for comparison FINDINGS: ABDOMEN: Lung Bases: Normal where visualized. Liver: Normal density. No measurable mass. Portal, Superior Mesenteric, and Splenic Veins: Unremarkable. Gallbladder and Biliary Tract: Status post cholecystectomy. No significant biliary ductal dilatation . Pancreas: Normal density, no abnormal calcifications or inflammatory process. Spleen: Normal. Adrenals: No masses seen. Kidneys: Normal size, contour and axis. No radiodense stones or obstructive uropathy. No masses seen. Abdominal Aorta: Abdominal portion non-dilated. Mild atherosclerosis. Bowel: There are fluid-filled loops of small and large bowel which can be seen with a diarrheal illne ss. No bowel wall thickening is seen. Solid stool is seen in the distal sigmoid colon and rectum. There is no evidence of appendicitis. Peritoneal Cavity: No ascites, collection or mesenteric inflammatory response. No free air. Lymph Nodes: Within normal limits. Bones: Within normal limits for the patient's age. Soft Tissues: Unremarkable. PELVIS: Bladder: Symmetric distention, no gross wall thickening. Reproductive Organs: Unremarkable as visualized. Lymph Nodes: Within normal limits. Bones: Within normal limits for the patient's age. IMPRESSION: Large amount of fluid seen throughout the small bowel and proximal colon suggesting a diarrheal illne ss such as a enterocolitis. There is no evidence of bowel obstruction. RADIATION DOSE DELIVERED: 1,251.31mGy.cm Total DLP DATA REPOSITORY: All CT scans at this facility are submitted to the National Radiology Data Registry (NRDR) Dose Index Registry (DIR) with the [employer] (ACR). RADIATION OPTIMIZATION: All CT scans at this facility use at least one of these dose optimization te chniques: automated exposure control; mA and/or kV adjustment per patient size (includes targeted exa ms where dose is matched to clinical indication); or iterative reconstruction.
[2022-12-30 18:16] LABS: Absolute Lymphocyte Count 2.59 10^3/uL (1.2-3.4); Absolute Monocyte Count 1.22 10^3/uL (0.1-0.8); Absolute Neutrophil Count 13.87 10^3/uL (1.2-6.7)
[2022-12-30 18:31] LABS: ALT 47 U/L (14-59); AST 27 U/L (15-37); Albumin 4.5 g/dL (3.4-5.0); Alkaline Phosphatase 167 U/L (46-116); Anion Gap 12.7 mmol/L (3-11); BUN 17 mg/dL (7-18); Bilirubin, Total 0.6 mg/dL (0.2-1.0); CO2 25.3 mmol/L (21.0-32.0); Calcium 10.5 mg/dL (8.5-10.1); Chloride 102 mmol/L (98-107); Estimated GFR 64.09 (mL/min/1.73m2); Glucose 126 mg/dL (74-106); Lipase 24 U/L (16-77); Magnesium 2.1 mg/dL (1.8-2.4); Potassium 3.3 mmol/L (3.5-5.1); Sodium 140 mmol/L (136-145); Total Protein 7.9 g/dL (6.4-8.2)
[2022-12-30 18:33] LABS: Troponin I < 50 ng/L (<or=60)
[2022-12-30] MEDS: Normal Saline - Diluent 50 ML VIAL IJ (18:42)
[2022-12-30] MEDS: Omnipaque 350 MG/ML 100 ML BTL IJ (18:43)
[2022-12-30] MEDS: Normal Saline Flush 10 ML SYR IVP (18:44)
--- NOTE | 2022-12-30 19:37 | DI.VRAD_ITS ---
PROCEDURE INFORMATION: Exam: XR Chest Exam date and time: 12/30/2022 7:10 PM Age: 62 years old Clinical indication: Prior surgery; Surgery date: 6+ months; Surgery type: Breast surgery 5 years ago; Patient HX: Epigastric pain TECHNIQUE: Imaging protocol: Radiologic exam of the chest. Views: 2 views. COMPARISON: CT ABDOMEN PELVIS W 12/30/2022 6:56 PM FINDINGS: Lungs: Unremarkable. No consolidation. Pleural spaces: Unremarkable. No pleural effusion. No pneumothorax. Heart/Mediastinum: Unremarkable. No cardiomegaly. Bones/joints: Unremarkable. IMPRESSION: No acute findings. Dictated and Authenticated by: Irving Bowles MD. Ordering:MILADYS Corado MD
--- NOTE | 2022-12-30 19:37 | DI.VRAD_ITS ---
PROCEDURE INFORMATION: Exam: CT Abdomen And Pelvis With Contrast Exam date and time: 12/30/2022 6:56 PM Age: 62 years old Clinical indication: Abdominal pain; Prior surgery; Surgery date: 6+ months; Surgery type: Cholecystectomy, appendectomy, breast surgery; Patient HX: Epigastric pain, nausea, vomiting TECHNIQUE: Imaging protocol: Computed tomography of the abdomen and pelvis with contrast. Radiation optimization: All CT scans at this facility use at least one of these dose optimization techniques: automated exposure control; mA and/or kV adjustment per patient size (includes targeted exams where dose is matched to clinical indication); or iterative reconstruction. Contrast material: OMNIPAQUE 350; Contrast volume: 31 ml; Contrast route: INTRAVENOUS (IV); COMPARISON: US PELVIS TRANSVAGINAL 11/14/2019 1:14 PM FINDINGS: Liver: Normal. No mass. Gallbladder and bile ducts: Gallbladder is surgically absent. Pancreas: Normal. No ductal dilation. Spleen: Normal. No splenomegaly. Adrenal glands: Normal. No mass. Kidneys and ureters: Normal. No hydronephrosis. Stomach and bowel: There is a large amount of fluid throughout the distal small bowel and proximal to mid colon. Moderate amount of stool noted throughout the distal colon. No evidence of bowel obstruction or wall thickening. Appendix: The appendix is surgically absent. Intraperitoneal space: Unremarkable. No free air. No significant fluid collection. Vasculature: Unremarkable. No abdominal aortic aneurysm. Lymph nodes: Unremarkable. No enlarged lymph nodes. Urinary bladder: Unremarkable as visualized. Reproductive: Unremarkable as visualized. Bones/joints: Moderate degenerative changes noted in the lumbar spine. Soft tissues: Unremarkable. IMPRESSION: Large amount of fluid throughout the distal small bowel and proximal to mid colon suggesting diarrheal illness such as gastroenteritis. No evidence of bowel obstruction. Dictated and Authenticated by: Irving Bowles MD. Ordering:MILADYS Corado MD
--- NOTE | 2022-12-30 19:44 | W.ED.GENAD ---
Discharge Plan Disposition Patient Disposition: Home Condition: Stable Discharge Details Clinical Impression: Acute epigastric pain, Nausea & vomiting Primary Care Provider: Andrea Cho ED Provider: Mickie Mata Home Meds and New Rx's Prescriptions: New sucralfate [Carafate] 1 gram tablet 1 g PO BID Qty: 60 0RF omeprazole magnesium [Prilosec OTC] 20 mg tablet,delayed release (DR/EC) 20 mg PO DAILY Qty: 30 0RF prochlorperazine maleate [Compazine] 10 mg tablet 10 mg PO Q6H PRNQty: 14 0RF Continued cholecalciferol (vitamin D3) 1,000 unit capsule 2,000 unit PO DAILY (DME) Blood Glucose Test strip See Dose Instructions .ROUTE .MEDSUPPLY Qty: 100 3RF Dose Instruction: As directed Rx Instructions: As directed, QAM (DME) lancets misc See Dose Instructions .ROUTE .MEDSUPPLY Qty: 100 3RF Dose Instruction: As directed Rx Instructions: As directed, QAM (DME) pen needle, diabetic [Comfort EZ Pen Ruffin] 32 gauge x 1/4 needle See Rx Instructions .ROUTE .MEDSUPPLY Qty: 100 3RF Rx Instructions: As directed QD to keep HbA1c less than 7 calcium carbonate [Calcium 600] 600 mg calcium (1,500 mg) tablet 1,200 mg PO DAILY magnesium citrate 125 mg capsule 125 mg PO QHS Patient Comments: Takes two capsules. methylphenidate HCl [Ritalin] 5 mg tablet 5 mg PO QPM MDD 5 mg Qty: 28 0RF dextroamphetamine-amphetamine [Adderall XR] 20 mg capsule,extended release 24hr 20 mg PO QAM MDD 20 mg Qty: 28 0RF vitamin B complex 1 EACH tablet 1 ea PO DAILY atorvastatin 40 mg tablet 40 mg PO DAILY Qty: 90 3RF venlafaxine 150 mg capsule,extended release 24hr See Rx Instructions .ROUTE .COMPLEX Qty: 180 3RF Dose Instruction: TAKE 2 CAPSULES BY MOUTH DAILY Rx Instructions: TAKE 2 CAPSULES BY MOUTH DAILY rizatriptan [Maxalt] 10 mg tablet 10 mg PO PRN Qty: 10 3RF oxybutynin chloride 5 mg tablet 10 mg PO BID Qty: 360 3RF insulin glargine [Lantus Solostar U-100 Insulin] 100 unit/mL (3 mL) insulin pen 5 unit SC DAILY Qty: 15 3RF ferrous sulfate 325 mg (65 mg iron) tablet 325 mg PO DAILY Qty: 90 3RF liraglutide 0.6 mg/0.1 mL (18 mg/3 mL) pen injector 1.2 mg subcut DAILY Qty: 18 3RF lisinopril-hydrochlorothiazide 10-12.5 mg tablet 1 tab PO DAILY Qty: 90 3RF acetaminophen [Tylenol] 325 MG tablet 650 mg PO Q4H PRN PRNQty: 30 0RF Discharge Instructions Instructions: Acute Nausea and Vomiting (ED), Abdominal Pain (ED) Additional Instructions: Take Compazine as prescribed for nausea and vomiting Take Carafate daily Take prilosec as prescribed Clear liquid diet [place] diet as tolerated tomorrow please follow-up with your transit survey worker Recommend outpatient recheck blood count within the next several weeks. Referrals: Andrea Cho DO [Primary Care Provider] - Medical Decision Making 62-year-old female presents, vomiting, epigastric pain Mild hypokalemia, improved, 40 mg potassium Antiemetic, Compazine, patient feeling marked improvement Declines opiate analgesia CT shows evidence of possible gastroenteritis Patient declines any diarrhea no stool sample was performed Feels marked markedly improved, encouraged to follow-up for outpatient endoscopy Placed on Carafate and Prilosec Compazine for home Return precautions reviewed and patient expressed understanding Medical Records Medical records reviewed: Yes I reviewed the patient's medical records. Lab Data Lab results reviewed: Yes I reviewed the patient's lab results. HPI General Date/Time Provider Initiated Documentation: 12/30/22 17:31. HPI Narrative: 62-year-old female presents with report of vomiting with epigastric pain. Has seen GI and was scheduled for an endoscopy at the end of January. Denies any fever or chills. States she had intermittent symptoms over the course of the past month. Denies alcohol consumption. Denies prior CT scan of abdomen and pelvis. Wondering if gluten intolerent. Related Data Home Medications Medication Instructions Recorded Confirmed vitamin B complex 1 ea PO DAILY 11/19/15 12/30/22 acetaminophen 325 mg tablet 650 mg PO Q4H PRN PRN #30 tabs 10/27/17 12/30/22 (Tylenol) blood sugar diagnostic (Blood #100 ea 11/15/18 12/30/22 Glucose Test strips) lancets #100 ea 11/15/18 12/30/22 cholecalciferol (vitamin D3) 25 2,000 unit PO DAILY 11/23/18 12/30/22 mcg (1,000 unit) capsule pen needle, diabetic 32 gauge x #100 ea 07/13/20 12/30/22 1/ (Comfort EZ Pen Ruffin) calcium carbonate 600 mg calcium 1,200 mg PO DAILY 10/18/21 12/30/22 (1,500 mg) tablet (Calcium) atorvastatin 40 mg tablet 40 mg PO DAILY #90 tab-caps 01/13/22 12/30/22 venlafaxine 150 mg See Rx Instructions .Route 01/13/22 12/30/22 capsule,extended release 24 hr .COMPLEX #180 caps rizatriptan 10 mg tablet (Maxalt) 10 mg PO PRN headache #10 tabs 02/24/22 12/30/22 oxybutynin chloride 5 mg tablet 10 mg PO BID #360 tabs 03/18/22 12/30/22 insulin glargine 100 unit/mL (3 5 unit (0.05 mL) subcut DAILY #15 04/01/22 12/30/22 mL) subcutaneous pen (Lantus mL Solostar U-100 Insulin) ferrous sulfate 325 mg (65 mg 325 mg PO DAILY #90 tabs 04/09/22 12/30/22 iron) tablet magnesium citrate 125 mg capsule 125 mg PO QHS 04/25/22 12/30/22 liraglutide 0.6 mg/0.1 mL (18 mg/3 1.2 mg (0.2 mL) subcut DAILY #18 mL 11/10/22 12/30/22 mL) subcutaneous pen injector dextroamphetamine-amphetamine ER 20 mg PO QAM #28 caps 12/16/22 12/30/22 20 mg 24hr capsule,extend release (Adderall XR) methylphenidate HCl 5 mg tablet 5 mg PO QPM #28 tabs 12/16/22 12/30/22 (Ritalin) lisinopril 10 1 tab PO DAILY #90 tabs 12/25/22 12/30/22 mg-hydrochlorothiazide 12.5 mg tablet omeprazole magnesium 20 mg 20 mg PO DAILY #30 tabs 12/30/22 tablet,delayed release (Prilosec OTC) prochlorperazine maleate 10 mg 10 mg PO Q6H PRN #14 tabs 12/30/22 tablet (Compazine) sucralfate 1 gram tablet (Carafate) 1 g PO BID #60 tabs 12/30/22 Previous Rx's Medication Instructions Recorded acetaminophen 325 mg tablet 650 mg PO Q4H PRN PRN #30 tabs 10/27/17 (Tylenol) blood sugar diagnostic (Blood #100 ea 11/15/18 Glucose Test strips) lancets #100 ea 11/15/18 pen needle, diabetic 32 gauge x #100 ea 07/13/2010/08 (Comfort EZ Pen Ruffin) atorvastatin 40 mg tablet 40 mg PO DAILY #90 tab-caps 01/13/22 venlafaxine 150 mg See Rx Instructions .Route 01/13/22 capsule,extended release 24 hr .COMPLEX #180 caps rizatriptan 10 mg tablet (Maxalt) 10 mg PO PRN headache #10 tabs 02/24/22 oxybutynin chloride 5 mg tablet 10 mg PO BID #360 tabs 03/18/22 insulin glargine 100 unit/mL (3 5 unit (0.05 mL) subcut DAILY #15 04/01/22 mL) subcutaneous pen (Lantus mL Solostar U-100 Insulin) ferrous sulfate 325 mg (65 mg 325 mg PO DAILY #90 tabs 04/09/22 iron) tablet liraglutide 0.6 mg/0.1 mL (18 mg/3 1.2 mg (0.2 mL) subcut DAILY #18 mL 11/10/22 mL) subcutaneous pen injector dextroamphetamine-amphetamine ER 20 mg PO QAM #28 caps 12/16/22 20 mg 24hr capsule,extend release (Adderall XR) methylphenidate HCl 5 mg tablet 5 mg PO QPM #28 tabs 12/16/22 (Ritalin) lisinopril 10 1 tab PO DAILY #90 tabs 12/25/22 mg-hydrochlorothiazide 12.5 mg tablet omeprazole magnesium 20 mg 20 mg PO DAILY #30 tabs 12/30/22 tablet,delayed release (Prilosec OTC) prochlorperazine maleate 10 mg 10 mg PO Q6H PRN #14 tabs 12/30/22 tablet (Compazine) sucralfate 1 gram tablet (Carafate) 1 g PO BID #60 tabs 12/30/22 Allergies Allergy/AdvReac Type Severity Reaction Status Date / Time black pepper Allergy Severe Dermatitis Verified 12/16/22 15:42 almond Allergy Intermediate Dermatitis Verified 12/16/22 15:42 blueberry Allergy Intermediate Dermatitis Verified 12/16/22 15:42 clams Allergy Intermediate Dermatitis Verified 12/16/22 15:42 mushroom Allergy Intermediate Dermatitis Verified 12/16/22 15:42 sesame oil Allergy Mild Dermatitis Verified 12/16/22 15:42 aspirin AdvReac Severe stomach Verified 12/16/22 15:42 upset hydrocodone [From Vicodin] AdvReac Intermediate Nausea Verified 12/16/22 15:42 metformin AdvReac Intermediate Diarrhea Verified 12/16/22 15:42 latex AdvReac Mild makes me Verified 12/16/22 15:42 itch gluten AdvReac Diarrhea Unverified 12/30/22 17:37 lactose AdvReac Diarrhea Unverified 12/30/22 17:37 tamoxifen AdvReac poor memory Verified 12/16/22 15:42 Seasonal Allergy Severe Other (See Uncoded 12/16/22 15:42 Comment) gluten intolerance Allergy Intermediate Nausea Uncoded 12/16/22 15:42 lobster Allergy Intermediate Dermatitis, Uncoded 12/16/22 15:42 severe itching olive Allergy Intermediate Dermatitis Uncoded 12/16/22 15:42 lactose intolerance Allergy Mild Nausea Uncoded 12/16/22 15:42 malt extract AdvReac Mild headache Uncoded 12/16/22 15:42 General Stated Complaint: Nausea/Vomit/Diar DARLING: 3 PFSH All Active Problems (Updated 12/30/22 @ 19:50 by JOSSY Stover) Acute epigastric pain (Acute) Nausea & vomiting (Acute) Positive self-administered antigen test for COVID-19 (Acute) 09/12/22-positive home test that night Postnasal drip (Acute) Chronic rhinitis (Acute) Seasonal allergies (Acute) Cervical arthritis (Acute) External hemorrhoids without complication (Acute) 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 Surgical History Biopsy of breast (10/08/16) Right breast- benign calcification Breast 08/2016 Left Breast- lobular cancer Breast, Lumpectomy (10/08/16) left breast Re-excision of positive margin 11/10/16: 11/10/16 reexcision of lateral margin Cholecystectomy (10/27/17) History of appendectomy History of colonoscopy (~03/29/21) Family History Father Alcohol abuse Cancer of bone Paternal Aunt Lung cancer Paternal Uncle Lung cancer Social History Smoking/Tobacco Use Status: Former Tobacco Use Tobacco: How many years used: 20 Smoking risk assessment performed?: Yes Alcohol Intake: current Alcohol Intake frequency: holidays/special occasions only Alcohol type: hard liquor Drug use: Never Substance use type: does not use Adopted: No Caregiver/Support person: No Household members: spouse Housing: house Number of Children: 2 number of grandchildren: 1 Communication Needs: Corrective Lenses current occupation: [employer] ([employer]) Pets and animals: Yes Pets and animals: dog(s) Current gender identity: female What is your relationship status?: How often do you talk on the phone with friends or family?: three or more times per week Panel score (0-1 are the most socially isolated patients): 2 What type of physical activity do you participate in: walking Duration: < 15 minutes/day Seatbelt use: always Helmet use: Yes Drive intox or ride w/intox commercial collections driver: No Working smoke detector in home: Yes Fire extinguisher in home: Yes Carbon monox detector in home: Yes Firearms in home: Yes (heirloom firearm) Firearms unloaded and locked: No Do you feel safe at home: Yes Do you feel safe in your relationship?: Yes Additional Social history: at bedside Female Reproductive History Menstrual Menopause type: natural History History 2 Para 2 Hx # Term Pregnancies Multiple births Hx # Pregnancies Ectopic pregnancies AB induced Hx Number of Living Children AB spontaneous Exam Const General: cooperative, comfortable and no acute distress HENMT Head: normal to inspection Other: Uvula midline, oropharynx patent Eyes Pupils: PERRL Resp Effort & Inspection: normal respiratory effort Auscultation: clear to auscultation bilaterally Cardio Rate: regular rate Rhythm: regular rhythm GI Other: Mild epigastric tenderness without rebound Neuro General: patient alert and patient oriented x3 Course Vital Signs Vital signs: Vital Signs Temperature 36.9 C 12/30/22 17:30 Pulse 94 H 12/30/22 17:30 Respiratory Rate 18 12/30/22 17:30 Blood Pressure 111/64 12/30/22 17:30 Temperature 36.9 C 12/30/22 17:30 Temperature Source Temporal Artery Scan 12/30/22 17:30 Pulse 94 H 12/30/22 17:30 Pulse 80 12/30/22 18:40 Respiratory Rate 22 12/30/22 18:40 Respiratory Effort Normal, Non-Labored 12/30/22 17:40 Blood Pressure 111/64 12/30/22 17:30 Blood Pressure Position Supine 12/30/22 17:30 Pulse Oximetry 95 12/30/22 18:40 Oxygen Delivery Method Room Air 12/30/22 17:30 Oxygen Flow Rate 0 12/30/22 17:30 Pain Level 8 12/30/22 17:30 Lab/Test Results Lab/Test Results: Laboratory Tests Range/Units 12/30/22 12/30/22 12/30/22 18:06 18:06 18:06 WBC (4.4-10.8) 10^3/uL 17.88 H RBC (3.93-5.22) 10^6/uL 5.35 H Hgb (11.2-15.7) g/dL 15.0 Hct (36.0-46.0) % 44.6 MCV (80-95) fL 83 MCH (27.0-33.0) pg 28.0 MCHC (32.0-36.0) % 33.6 RDW (11.7-14.6) % 13.0 Plt Count (130-400) 10^3/uL 284 MPV (8.0-11.0) fL 8.9 Immature Gran % 0.3 Neutrophils % 77.6 Lymphocytes % 14.5 Monocytes % 6.8 Eosinophils % 0.5 Basophils % 0.3 Nucleated RBC % (0.0-0.3) % 0.0 Absolute Neutrophils (1.2-6.7) 10^3/uL 13.87 H Absolute Lymphocytes (1.2-3.4) 10^3/uL 2.59 Absolute Monocytes (0.1-0.8) 10^3/uL 1.22 H Absolute Eosinophils (0.0-0.7) 10^3/uL 0.09 Absolute Basophils (0.0-0.2) 10^3/uL 0.05 Sodium (136-145) mmol/L 140 Potassium (3.5-5.1) mmol/L 3.3 L Chloride (98-107) mmol/L 102 Carbon Dioxide (21.0-32.0) mmol/L 25.3 Anion Gap (3-11) mmol/L 12.7 H BUN (7-18) mg/dL 17 Creatinine (0.55-1.02) mg/dL 1.0 Est GFR (CKD-EPI 2020) (mL/min/1.73m2) 64.09 Glucose (74-106) mg/dL 126 H Calcium (8.5-10.1) mg/dL 10.5 H Magnesium (1.8-2.4) mg/dL 2.1 Total Bilirubin (0.2-1.0) mg/dL 0.6 AST (15-37) U/L 27 ALT (14-59) U/L 47 Alkaline Phosphatase (46-116) U/L 167 H Troponin I (<or=60) ng/L < 50 Total Protein (6.4-8.2) g/dL 7.9 Albumin (3.4-5.0) g/dL 4.5 Lipase (16-77) U/L 24
[2022-12-30] MEDS: Prochlorperazine 10 MG TAB PO (20:01)
[2022-12-30] MEDS: Potassium Chloride 20 MEQ TABCR 40 MEQ PO (20:01)
== END 2022-12-30 20:14 | disposition home or self-care (01) ==
PROVIDERS: Emergency Provider Physician Assistant; PCP Family Medicine
DX: R10.13 Epigastric pain (principal); R11.2 Nausea with vomiting, unspecified; E87.6 Hypokalemia; I10 Essential (primary) hypertension
CPT/HCPCS: 80053; 83690; 93005; 96361; 96374; 96375; 99285; 71046; 74177; 83735; 84484; 85025; 93010; 99284; J0780; J1200; J3490

== ENCOUNTER 2023-01-09 16:20 | Outpatient (CLI) | payer BC, SELFPAY ==
--- NOTE | 2023-01-09 16:15 | RT.EKG_ITS ---
APPROVED REPORT Exam: Resting ECG Reason for Exam: Syncope Patient Location: O HR:72 bpm ECG Measurements Heart Rate 72 AXIS SD 175 P 59 QRSd 88 QRS -9 QT 378 T 35 QTc 414 Conclusion Sinus rhythm...normal P axis, V-rate 50- 99 Atrial premature complex...SV complex w/ short R-R interval Abnormal R-wave progression, early transition...QRS area>0 in V2
== END 2023-01-09 16:21 | disposition home or self-care (01) ==
LOC: DI.KIM 16:20
PROVIDERS: PCP Family Medicine; Visit Provider Family Medicine
DX: R55 Syncope and collapse (principal); I49.1 Atrial premature depolarization
CPT/HCPCS: 93010

== ENCOUNTER 2023-01-30 13:04 | Outpatient (RCR) | payer BC, SELFPAY ==
--- NOTE | 2023-01-30 13:00 | HOLTER_ITS ---
APPROVED REPORT Conclusion This is a 48-hour Holter monitor ordered for syncope Rhythm throughout was sinus with an average heart rate of 87. Minimum was 69, maximum 141 There were rare isolated atrial and ventricular ectopic beats Patient symptoms were reported which corresponded to sinus tachycardia There was no atrial fibrillation, no high-grade AV block, no pauses greater than 3 seconds
== END 2023-02-01 23:59 | disposition home or self-care (01) ==
LOC: CARDOPNVT 13:04
PROVIDERS: PCP Family Medicine; Visit Provider Family Medicine
DX: R55 Syncope and collapse (principal); R00.2 Palpitations
CPT/HCPCS: 93225

== ENCOUNTER 2023-02-06 07:00 | Outpatient (RCR) | payer BC, SELFPAY | END 2023-02-06 07:20 | LOC: CARDOPNVT 07:00 | PROVIDERS: PCP Family Medicine; Visit Provider Family Medicine | DX: R55 Syncope and collapse (principal); R00.2 Palpitations | CPT/HCPCS: 93226 ==

== ENCOUNTER 2023-04-30 18:55 | Outpatient (CLI) | payer BC, SELFPAY ==
[2023-04-30 09:20] LABS: Abs Immature Grans 0.01 10^3/uL (0.0-0.06); Absolute Basophil Count 0.05 10^3/uL (0.0-0.2); Absolute Eosinophil Count 0.34 10^3/uL (0.0-0.7); Absolute Monocyte Count 0.36 10^3/uL (0.1-0.8); Absolute Neutrophil Count 3.01 10^3/uL (1.2-6.7); Basophils % 0.9; Eosinophils % 5.8; HCT 41.1 % (36.0-46.0); HGB 13.4 g/dL (11.2-15.7); Immature Grans % 0.2; Lymphocytes % 35.8; MCH 28.3 pg (27.0-33.0); MCHC 32.6 % (32.0-36.0); MCV 87 fL (80-95); MPV 8.9 fL (8.0-11.0); Monocytes % 6.1; Neutrophils % 51.2; Platelet Count 277 10^3/uL (130-400); RBC 4.74 10^6/uL (3.93-5.22); RDW 12.8 % (11.7-14.6); RDW-SD 40.2 fL; WBC 5.87 10^3/uL (4.4-10.8)
[2023-04-30 09:41] LABS: INR 0.9 (0.9-1.1)
[2023-04-30 09:47] LABS: ALT 44 U/L (14-59); AST 22 U/L (15-37); Albumin 3.8 g/dL (3.4-5.0); Alkaline Phosphatase 169 U/L (46-116); Bilirubin, Direct 0.1 mg/dL (0.0-0.2); Bilirubin, Total 0.3 mg/dL (0.2-1.0); GGT 142 U/L (5-55); Total Protein 7.4 g/dL (6.4-8.2)
[2023-04-30 10:24] LABS: Cholesterol 207 mg/dL (<200); Triglyceride 112 mg/dL (<150)
[2023-05-04 12:18] LABS: Smooth Muscle Ab Screen Negative (Negative)
[2023-05-04 12:24] LABS: Liver/Kidney Microsome Type 1 <5.0 U
[2023-05-04 14:44] LABS: ANA Interpretation Negative (Negative)
[2023-05-04 15:26] LABS: Gliadin (Deamidated) Ab, IgA <10.0 U; Gliadin (Deamidated) Ab, IgG <10.0 U
[2023-05-04 15:58] LABS: HBs Antibody, Quant <3.1 mIU/mL (See Note); Hepatitis B Surface Ab Negative (See Note)
[2023-05-04 16:38] LABS: Hepatitis A Antibody IgM Negative (Negative); Hepatitis B Core Antibody Negative (Negative); Hepatitis B surface Ag Negative (Negative); Hepatitis C Ab w Rflx HCV PCR Negative (Negative)
[2023-05-04 17:17] LABS: Tissue Transglutaminase Ab IgG <1.2 U/mL
== END 2023-04-30 18:56 | disposition home or self-care (01) ==
LOC: LBO 18:58
PROVIDERS: PCP Family Medicine; Visit Provider Internal Medicine Gastroenterology
DX: R11.2 Nausea with vomiting, unspecified (principal); R19.7 Diarrhea, unspecified; R63.4 Abnormal weight loss; D50.9 Iron deficiency anemia, unspecified
CPT/HCPCS: 36415; 80076; 83516; 86364; 86704; 86706; 86709; 86803; 87340; 82465; 82977; 84478; 85025; 85610; 86038; 86255

== ENCOUNTER 2024-11-21 01:02 | Outpatient (CLI) | payer BC, SELFPAY ==
--- NOTE | 2024-11-21 07:15 | DI.US_ITS ---
Exam(s) US BREAST LT COMPLETE MAMMO DIAGNOSTIC BI EXAM: MAMMO DIAGNOSTIC BI and U/S breast LT complete CLINICAL HISTORY: left breast lump,h/o adenocarcinoma of breast,n63.20,z85.3. TECHNIQUE: Craniocaudal and mediolateral oblique Full Field Digital Mammography views of the left br east with Computer Aided Diagnosis followed by Tomosynthesis and complete left breast ultrasound. Al l 4 quadrants of the left breast were evaluated sonographically including the left axilla and left re troareolar region. COMPARISON: Comparison is made with prior examinations. FINDINGS: Mammography/Tomosynthesis: Masses/Architectural Distortion: The patient has had a prior left breast lumpectomy. No suspicious m asses are seen. No new areas of architectural distortion are present. Microcalcifictions: No suspicious pleomorphic-type are seen. Skin Thickening/Nipple Retraction: None. Complete left breast US: Echotexture: Normal appearance of the glandular tissue. Shadowing: Echogenic shadowing foci are seen consistent with the parenchymal calcifications. Cyst: None. Solid lesions: None seen. Ductal dilation: None. IMPRESSION: 1. No evidence of malignancy is noted. 2. Unless there is more urgent need, follow-up screening mammography is recommended, as per [employer] [employer] guidelines. 3. The findings were discussed with the patient on the date of the examination. BI-RADS Category 2 - Benign Findings Breast Density - Category B - Scattered areas of fibroglandular density Breast density Category C or D implies that the patient has dense breast tissue. Dense breast tissue can make it harder to find cancer on a mammogram. Dense breast tissue is also associated with an incr eased risk of breast cancer. This information about the result of the mammogram report was provided to the patient to raise their awareness. Use this report when you speak with the patient about their risks for breast cancer, which includes their family history. At that time, you may recommend additional screening tests (Ultrasoun d or MRI) as these tests may add significant information. A negative radiographic report should not delay biopsy if a dominant or clinically suspicious mass is present. Up to ten percent of cancers are not identified on mammography. A negative report may reinforce clinical impression. Adenosis and dense breasts may obscure an underlying neoplasm. False positive reports average 6 to 10%. Patient will receive a letter notifying them of these results.
== END 2024-11-21 01:22 ==
LOC: DI 01:02
PROVIDERS: PCP Family Medicine; Visit Provider Obstetrics & Gynecology
DX: C50.412 Malignant neoplasm of upper-outer quadrant of left female breast; Z85.3 Personal history of malignant neoplasm of breast
CPT/HCPCS: 76642; 77062; 77066; G0279

== ENCOUNTER 2025-03-31 10:10 | Outpatient (CLI) | payer BC, SELFPAY ==
[2025-03-31 11:55] LABS: COMMENT (LAB VIEW ONLY) 133.46 mg/dL; Microalb ug/mg Crea 1.6 ug/mg Cr
[2025-03-31 12:05] LABS: ALT 41 U/L (14-59); AST 19 U/L (15-37); Albumin 3.9 g/dL (3.4-5.0); Alkaline Phosphatase 179 U/L (46-116); Anion Gap 8.6 mmol/L (3-11); BUN 10 mg/dL (7-18); Bilirubin, Total 0.3 mg/dL (0.2-1.0); CO2 28.4 mmol/L (21.0-32.0); CREATININE 0.8 mg/dL (0.55-1.02); Calcium 9.2 mg/dL (8.5-10.1); Calculated LDL 68 mg/dL (<100); Chloride 104 mmol/L (98-107); Cholesterol 146 mg/dL (<200); Estimated GFR 82.23 (mL/min/1.73m2); Glucose 104 mg/dL (74-106); HDL Cholesterol 65 mg/dL (>or=50); Potassium 4.3 mmol/L (3.5-5.1); Sodium 141 mmol/L (136-145); TSH (W/Ref FT4) 1.38 uIU/mL (0.36-3.74); Total Protein 7.6 g/dL (6.4-8.2); Triglyceride 66 mg/dL (<150)
== END 2025-03-31 10:11 | disposition home or self-care (01) ==
LOC: LBO 10:10
PROVIDERS: PCP Family Medicine; Visit Provider Family Medicine
DX: E11.59 Type 2 diabetes mellitus with other circulatory complications (principal); I15.2 Hypertension secondary to endocrine disorders
CPT/HCPCS: 36415; 80053; 80061; 82043; 82570; 84443

== ENCOUNTER 2025-08-01 11:11 | Outpatient (CLI) | payer BC, SELFPAY ==
[2025-08-01 12:58] LABS: ALT 31 U/L (14-59); AST 17 U/L (15-37); Albumin 3.6 g/dL (3.4-5.0); Alkaline Phosphatase 153 U/L (46-116); Anion Gap 7.8 mmol/L (3-11); BUN 13 mg/dL (7-18); Bilirubin, Total 0.3 mg/dL (0.2-1.0); CO2 28.2 mmol/L (21.0-32.0); Calcium 9.4 mg/dL (8.5-10.1); Chloride 106 mmol/L (98-107); Estimated GFR 82.23 (mL/min/1.73m2); GGT 32 U/L (5-55); Glucose 99 mg/dL (74-106); Potassium 4.3 mmol/L (3.5-5.1); Sodium 142 mmol/L (136-145); Total Protein 7.4 g/dL (6.4-8.2)
== END 2025-08-01 11:12 | disposition home or self-care (01) ==
LOC: LBO 11:11
PROVIDERS: PCP Family Medicine; Visit Provider Nurse Practitioner Family
DX: R74.8 Abnormal levels of other serum enzymes (principal)
CPT/HCPCS: 36415; 80053; 82977

== ENCOUNTER 2025-08-01 11:41 | Outpatient (CLI) | payer BC, SELFPAY ==
--- NOTE | 2025-08-01 10:00 | DI.RAD_ITS ---
Exam(s) XR ELBOW RT COMPLETE EXAM: XR ELBOW RT COMPLETE CLINICAL HISTORY: RIGHT ELBOW PAIN. TECHNIQUE: 2D digital imaging was performed. COMPARISON: No exams were available for comparison FINDINGS: 3 views No evidence of acute fracture or joint effusion and there is no swelling of the olecranon bursa. The radial head and neck appear unremarkable. There is no degenerative narrowing of the joint space although on the lateral view there is some degenerative change noted at the tip of the coronoid process. In addition, there is slight bony irregularity at the lateral epicondyle region consistent with probable epicondylitis. There are no loose intra-articular bodies. Bone density normal. No significant osseous lesions. IMPRESSION: Findings of the lateral epicondyle probably consistent with epicondylitis. Similar findings are not seen at the level the medial epicondyle. Slight degenerative change at the tip of the coronoid process noted. DATA REPOSITORY: RADIATION DOSE DELIVERED:
--- NOTE | 2025-08-01 10:15 | DI.RAD_ITS ---
Exam(s) XR SHOULDER RT COMPLETE 2+V EXAM: XR SHOULDER RT COMPLETE 2+V CLINICAL HISTORY: right shoulder pain. TECHNIQUE: 2D digital imaging was performed. COMPARISON: No exams were available for comparison FINDINGS: Two views No evidence of fracture or dislocation nor abnormal soft tissue calcifications. There are no obvious degenerative changes in the glenohumeral joint and no subluxation of the humeral head within the osseous glenoid. The subacromial space is not diminished. Mild degenerative changes in the AC joint. Bone density normal. No osseous lesions. IMPRESSION: No significant osseous findings in the shoulder. DATA REPOSITORY: RADIATION DOSE DELIVERED:
== END 2025-08-01 11:42 | disposition home or self-care (01) ==
LOC: DIORS 11:41
PROVIDERS: PCP Family Medicine; Visit Provider Student in an Organized Health Care Education/Training Program
DX: M25.521 Pain in right elbow (principal); M25.511 Pain in right shoulder
CPT/HCPCS: 73030; 73080